=== PATIENT | male | born 1965 | race Caucasian/White ===

== ENCOUNTER 2016-12-06 11:42 | Inpatient (IN) | payer OTHER ==
[~2016-12-06] VITALS: Ht 188 cm; Wt 94.1 kg
[~2016-12-06 11:42] MED LIST: LEVOTHYROXINE75 MCG PO; LITHIUM CARBON300 M1 PO; PRILOSEC OTC20 MG PO; SEROQUEL400 MG PO; SIMVASTATIN40 MG PO; TRAZODONE HCL100 MG PO; TUMS200 MG PO; VENLAFAXINE H37.5 MG PO
[2016-12-06] MEDS ORDERED: COLCHICINE0.6 M1 PO (11:58)
[2016-12-06] MEDS ORDERED: BRINTELLIX20 MG PO (12:00)
[2016-12-06] MEDS ORDERED: ZOFRAN ODT4 MG PO (12:01)
[2016-12-06] MEDS ORDERED: SUCRALFATE1 GM PO (12:01)
[2016-12-06] MEDS ORDERED: METOPROLOL SUC100 MG PO (12:02)
[2016-12-06] MEDS ORDERED: KEPPRA500 MG PO (12:03)
[2016-12-06] MEDS ORDERED: CLONIDINE HCL0.2 MG PO (12:04)
[2016-12-06] MEDS ORDERED: OXYCODON-ACETA1 EAC2 PO (12:04)
--- NOTE | 2016-12-06 17:39 | NUR ---
PT RECEIVED FROM ED, TRANSFERED SELF TO BED, STEADY ON FEET. PT ON ROOM AIR, DENIES SOB, LUNG SOUNDS COARSE WITH RHONCHI AND EXPIRATORY WHEEZE TO LEFT SIDE. PT DENIES CHEST PAIN, HR REGULAR. PT DENIES NAUSEA AT THIS TIME, BOWEL TONES ACTIVE/HYPERACTIVE, TENDER TO PALPATE LOWER ABD. IV ZOSYN COMPLETED, D5LR AT 125 ML/HR INFUSING. SCDS TO BLE. PT REQUESTING NICOTINE PATCH, NO ORDER, MD CALLED, MESSAGE LEFT. CMS INTACT, PULSES PALPABLE, NO EDEMA NOTED. DISCUSSED PLAN OF CARE, IV ABX, AND BOWEL REST. PARENTS AT BEDSIDE, INSTRUCTED TO BRING ANTIDEPRESSANT IN AM.
--- NOTE | 2016-12-06 17:51 | NUR ---
DR FUENTES CALLED BACK AND OK'D THE ORDER OF 21 MG NICOTINE PATCH FOR PATIENT.
--- NOTE | 2016-12-06 18:03 | NUR ---
NICOTINE PATCH APPLIED TO RIGHT ARM. PT RESTING IN BED. PT DENIES OTHER NEEDS AT THIS TIME.
--- NOTE | 2016-12-06 18:19 | NUR ---
PT RECEIVED FROM ED, DX WITH DIVERTICULITIS. PT ON ROOM AIR, CURRENT SMOKER, LUNG SOUNDS COARSE WITH RHONCHI AND WHEEZE TO LEFT SIDE, NICOTINE PATCH TO RIGHT ARM. PT ON CLEAR LIQUID DIET <500 ML/8HRS, GIVEN 250 ML OF WATER. PT PAIN WELL CONTROLLED WITH DILAUDID GIVEN IN ED, HAS NOT REQUESTED PAIN MEDICATION SINCE ARRIVING. IV FLUIDS INFUSING D5LR AT 125 ML/HR TO RIGHT AC. PT UP SBA TO AMBULATE. BOWEL TONES ACTIVE UPPER HYPERACTIVE LOWER, TENDER TO PALPATE LOWER ABD. SCDS TO BLE.
--- NOTE | 2016-12-06 19:07 | NUR ---
Received report from RN. Patient is resting comfortably in bed, breathing is even and unlabored. Denies needs at this time. Call light within reach.
--- NOTE | 2016-12-06 19:28 | NUR ---
PT REQUESTING PAIN MEDICATION. RATING PAIN 6/10 TO LOWER ABD. GIVEN 1 MG IV DILAUDID. PT DENIES OTHER NEEDS AT THIS TIME.
--- NOTE | 2016-12-06 20:00 | NUR ---
PATIENT REPORTS 4/10 PAIN TO RLQ OF ABD. 1 TAB NORCO GIVEN PER EMAR. DENIES OTHER NEEDS AT THIS TIME. SHIFT ASSESSMENT DONE, CALL LIGHT WITHIN REACH.
--- NOTE | 2016-12-06 20:05 | NUR ---
PATIENT REPORTS 4/10 PAIN IN RLQ OF ABD, HE STATES "IT FEELS LIKE A GAS BUBBLE." PRN NORCO GIVEN PER EMAR. DENIES OTHER NEEDS AT THIS TIME. ASSESSMENT DONE, CALL LIGHT WITHIN REACH.
--- NOTE | 2016-12-06 21:45 | NUR ---
PATIENT REPORTS 3/10 PAIN IN RLQ OF ABD, AND SAYS HE IS COMFORTABLE. DENIES NEEDS AT THIS TIME. CALL LIGHT WITHIN REACH.
--- NOTE | 2016-12-07 00:04 | NUR ---
PATIENT IS RESTING COMFORTABLY IN BED, BREATHING IS EVEN AND UNLABORED. CALL LIGHT WITHIN REACH.
--- NOTE | 2016-12-07 01:39 | NUR ---
PATIENT REPORTS 8/10 LLQ ABD PAIN AND SUPRAPUBIC PAIN. PRN DILAUDID GIVEN PER EMAR. DENIES OTHER NEEDS AT THIS TIME. CALL LIGHT WITHIN REACH.
--- NOTE | 2016-12-07 02:40 | NUR ---
PATIENT IS RESTING COMFORTABLY IN BED, BREATHING IS EVEN AND UNLABORED. FLACC SCORE OF 0. CALL LIGHT WITHIN REACH.
--- NOTE | 2016-12-07 05:51 | NUR ---
PATIENT REPORTS MILD NAUSEA RESULTING IN EMESIS. PRN ZOFRAN GIVEN PER EMAR. REPORTS 4/10 LOWER ABD PAIN, BUT REFUSES PAIN MEDICATION AFTER OFFERING. DENIES OTHER NEEDS AT THIS TIME. CALL LIGHT WITHIN REACH.
--- NOTE | 2016-12-07 06:05 | NUR ---
PATIENT'S NIGHT WAS RELATIVELY UNEVENTFUL. HE HAS BEEN RESTING COMFORTABLY IN BED THROUGH MAJORITY OF SHIFT. VSS, PAIN HAS BEEN WELL CONTROLLED WITH PRN PAIN MEDICATION. HAD ONE EPISODE OF NAUSEA AND EMESIS, PRN ZOFRAN GIVEN PER EMAR. HAS IV FLUIDS RUNNING AT 125 ML/HR IN RIGHT ARM. HE IS A SBA. NO ACUTE CHANGES FROM BEGINNING OF SHIFT ASSESSMENT.
--- NOTE | 2016-12-07 07:22 | CONS ---
[facility] [address], [place] [address] Signed DATE OF CONSULTATION: 12/06/2016 CHIEF COMPLAINT: Left lower quadrant abdominal pain. HISTORY OF PRESENT ILLNESS: Robby is a 50-year-old gentleman with a long history of bipolar disorder, depression, and seizures. He is not able to drive, but he is single and lives alone, although he has a lot of support from his mom and dad and his family. He continues to smoke and also a little bit of marijuana to try to improve his appetite plus he likes to drink a little bit each week. He was having some trouble and went over to [facility] a week ago and everything seemed to be fine including a CT scan. This week he developed left lower quadrant abdominal pain. It was fairly intense. He decided to come to our hospital here at [facility]. He is tender in the left lower quadrant. He certainly has a white count of 12.1. The rest of his labs are fine including a lactic acid of 1. He had a repeat CT scan of the abdomen and pelvis performed to make sure enough he has a diverticular disease and just some mild inflammation or a few gas bubbles, but no abscess and no free air. I have been asked to admit him as a general surgeon on-call. In the meantime, he has received IV fluids, pain medication, and some Zosyn and Flagyl. PAST MEDICAL HISTORY: Depression, bipolar disorder, alcoholism, hypertension, kidney stones, seizures, gout, gastroesophageal reflux disease, and hypothyroidism. PAST SURGICAL HISTORY: Includes a right hand tendon repair and a kidney stone extraction. SOCIAL HISTORY: He likes to smoke a little including marijuana. He likes to drink several beers in a week. He is single. He does not drive. He has no children. He does have a house. He has a lot of support from his father and his mom. His dad is Eddie. His mother's Katerina, . He prefers the [facility] in [place]. Dr. Jann Jaramillo is his primary care provider. FAMILY HISTORY: Dad has had diverticular disease requiring my services, hypertension, obstructive sleep apnea requiring CPAP mask, and diabetes. His mom I think has some issues with her lungs and I believe she is a smoker as well. REVIEW OF SYSTEMS: Robby had 10 systems reviewed and really nothing new since I have seen him last. ALLERGIES: None. MEDICATIONS: Levothyroxine, Seroquel, Prilosec, Tums, colchicine, Brintellix, Zofran, sucralfate, metoprolol, Keppra, clonidine and Percocet. PHYSICAL EXAMINATION: Electronically Signed By: SALTY BARRERA MD 12/07/16 0722 PATIENT NAME: ROBBY RAMIREZ CONSULTATION DATE OF : 61 PHYSICIAN: SALTY BARRERA MD REPORT #: [id number] REPORT IS CONFIDENTIAL AND NOT TO BE RELEASED WITHOUT AUTHORIZATION [facility] [address], [place] [address] Signed VITAL SIGNS: His blood pressure is 124/91, heart rate of 55, respiratory rate is 16. He is 98% on room air. He is 6 feet 2 inches, 108 kg. GENERAL: Robby is a 50-year-old gentleman, who appears healthier than his stated age. He is lying in his ER bed watching TV. He does not appear systemically ill or toxic. LUNGS: Clear to auscultation bilaterally. HEART: Regular rate and rhythm. ABDOMEN: Soft and flat, but tender in the left lower quadrant, although he did just receive some Dilaudid. LABORATORY DATA: His white blood cell count is 12.1, hemoglobin 16, neutrophils 62, BUN 8, creatinine 0.75. UA negative. Lactic acid 1. Liver function tests negative. Albumin is 4.1. RADIOGRAPHIC STUDIES: CT scan of the abdomen and pelvis is reviewed as well as the report. He clearly has some diverticula in the sigmoid colon, just a little bit inflammation and a few gas bubbles. No abscess and no free air. ASSESSMENT AND PLAN: Robby is a 50-year-old gentleman, who presents with an acute episode of diverticulitis. We are going to admit him and put him on IV fluids and some antibiotics for a few days. We will allow him to have some clear liquids, so he can take his medications as well. Hopefully this will clear and we will be able to move forward in a conservative manner. He knows that if his condition worsens, he might need surgery. He has expressed understanding and agrees with the above plan. Salty Barrera MD ALB/ROSIBELL /[id number] cc: Jann Jaramillo DC Electronically Signed By: SALTY BARRERA MD 12/07/16 0722 PATIENT NAME: ROBBY RAIMREZ CONSULTATION DATE OF : 61 PHYSICIAN: SALTY BARRERA MD REPORT #: [id number] REPORT IS CONFIDENTIAL AND NOT TO BE RELEASED WITHOUT AUTHORIZATION
--- NOTE | 2016-12-07 08:30 | NUR ---
PATIENT IS SLEEPING.
--- NOTE | 2016-12-07 08:43 | NUR ---
pt resting between cares. took scheduled meds as ordered. awaiting home med to be brought in by family member. no complaints at this time. flagyl infusing now. cefepime to be hung after flagyl infuses.
[2016-12-07] MEDS ORDERED: QUETIAPINE FUM300 MG PO (10:28)
--- NOTE | 2016-12-07 11:16 | NUR ---
PT AMBULATING MED SURG UNIT NOW. CEFEPIME INFUSING. PT REPORTS STABBING PAIN IN LOWER ABDOMEN. WILL GIVE 2MG DILAUDID AT 1145.
--- NOTE | 2016-12-07 13:45 | NUR ---
YPT REPORTS PAIN SUBSIDED AFTER LAST DOSE OF DILAUDID AND AMBULATING HALLS. REPORTS POSITIVE FLATUS. PT PLANS TO SHOWER THIS AFTERNOON.
--- NOTE | 2016-12-07 13:53 | NUR ---
PT IN BED, ALERT ADN ORIENTED. HIS MOTHER BY HIS SIDE. HE MENTIONED THAT HE WAS FEELING BETTER, AND THAT HIS DAD HAD SIMILIAR ATTACK. SHE BEGAN TO GIVE DETAILS OF HOW DIFFICULT IT WAS ON HIS FATHER. THE LONGER SHE DESCRIBED HIS SITUATION, PT GOT QUIET AND PENSIVE. HE THANKED ME FOR COMING BY, I EXTENDED A BLESSING. WILL CONTINUE TO FOLLOW
--- NOTE | 2016-12-07 15:51 | NUR ---
PATIENT SAID WOULD LIKE TO TAKE A SHOWER IF HE DIDN'T HAVE TO TAKE IV POLE IN WITH HIM.
--- NOTE | 2016-12-07 16:24 | NUR ---
WENT TO CHECK ON PT. AND HE WAS SOUND ASLEEP
--- NOTE | 2016-12-07 18:11 | NUR ---
FLAGYL/CEFEPIME. IVF @ 125. DARK URINE. NEW IV IN RW. NA PHOS AND MAG RIDER GIVEN TODAY. DILAUDID X2. NORCO CHANGED TO PERCOCET. BENADRYL GIVEN FOR ITCHING AFTER NORCO. WALKED 1 LAP TODAY. POSITIVE FLATUS REPORTED. NO BM.
--- NOTE | 2016-12-07 19:00 | NUR ---
RECVD REPORT FROM JOSÉ ANTONIO RN, PT AWAKE IN BED WATCHING TV. CLEAR LIQUID DIET 500 MLS/8 HRS NOTED. PT STATES PAIN IS "OKAY RIGHT NOW." NO FURTHER NEEDS AT THIS TIME. CALL LIGHT IN PLACE.
--- NOTE | 2016-12-07 19:40 | NUR ---
PT CALLED REQUESTING MEDICATION FOR NAUSEA. IN TO SEE PT, PT VOMITING. PHENERGAN 12.5 MG GIVEN. EMESIS OF 5 MLS NOTED. PT STATES "I THINK PUKING HELPED." NO FURTHER NEEDS AT THIS TIME. WILL CONTINUE TO MONITOR PT.
--- NOTE | 2016-12-07 21:15 | NUR ---
IN TO SEE PT, PT AWAKE WATCHING TV. ASSESSMENT COMPLETE AND PM MEDICATIONS GIVEN. PT C/O ITCHING. BENADRYL GIVEN. PT C/O OF 610 ABD PAIN, IV DILAUDID GIVEN. IVF AND ABX INFUSING. PT STATES HE IS PASSING GAS. IV IN R WRIST DC'D PER PT REQUEST DUE TO PAIN. NO FURTHER NEEDS AT THIS TIME. CALL LIGHT IN REACH.
--- NOTE | 2016-12-07 23:04 | NUR ---
IN TO CHECK ON PT, PT AWAKE WATCHING TV. PT C/O 07/18 ABD PAIN, PERCOCET GIVEN. PT STATE "I AM STILL A LITTLE ITCHY." BENADRYL 25 MG GIVEN. PT ALERT AND WATCHING TV. NO FURTHER NEEDS AT THIS TIME, CALL LIGHT IN REACH.
--- NOTE | 2016-12-08 00:40 | NUR ---
IN TO CHECK ON PT, PT APPEARS TO BE SLEEPING. RR EVEN AND UNLABORED. NO APPARENT DISTRESS NOTED. CALL LIGHT IN REACH.
--- NOTE | 2016-12-08 02:17 | NUR ---
IN TO CHECK ON PT, PT SLEEPING SNORING SOFTLY. AWAKENS EASILY TO VOICE. PT STATES PAIN IS "GOOD." ABX INFUSING. NO FURTHER NEEDS AT THIS TIME. CALL LIGHT IN REACH.
--- NOTE | 2016-12-08 04:19 | NUR ---
IN TO CHECK ON PT, PT APPEARS TO BE SLEEPING. LAYING ON BACK, SNORING SOFTLY. RR EVEN AND UNLABORED. NO APPARENT DISTRESS NOTED. IVF INFUSING.
--- NOTE | 2016-12-08 04:57 | NUR ---
PT RESTED WELL DURING SHIFT. C/O PAIN 6-8/10 ABD PAIN, PERCOCET AND DILAUDID GIEVN. EMESIS OF < 5 MLS NOTED AT BEGINING OF SHIFT. IV IN R AC D5LR @ 125 MLS. CLEAR LIQUID DIET 500 MLS IN 8 HRS. BOWEL SOUNDS HYPOACTIVE, PT REPORTS PASSING FLATUS.
--- NOTE | 2016-12-08 09:59 | NUR ---
NO IV ACCESS. ABX LATE D/T NO IV ACCESS.
--- NOTE | 2016-12-08 14:11 | NUR ---
PT MADE IT VERY PLAIN THAT HE DIDNOT WANT OR NEED ANY VISITS FROM ME. HE SHOOK MY HAND AND I EXTENDED A BLESSING TO HIM. WILL FOLLOW NEEDED
--- NOTE | 2016-12-08 14:54 | NUR ---
STUDENT NURSE TO WALK PATIENT THIS AFTERNOON. RESTING MOST OF DAY. NEW IV WORKING WELL. PERCOCET GIVEN AT 1400. PAIN REPORTED AT 3/10.
--- NOTE | 2016-12-08 14:56 | NUR ---
PT IS [id number] IN BED WITH CALL LIGHT IN REACH. PT ASKED FOR MORE WATER AND JUICE. WAS GIVEN 250MLS OF EACH.
--- NOTE | 2016-12-08 18:34 | NUR ---
PT AMBULATED HALLS X2. PERCOCET 2 TABS Q4H. REPORTS PAIN 3/10 IN LOWER ABDOMEN. RECEIVED BENADRYL X2 FOR ITCHING. NO BM TODAY. SBA. FLAGYL/CEFEPIME. D5LR @ 125. TOLERATING CLEAR LIQUID DIET-- 500CC/8H.
--- NOTE | 2016-12-08 20:01 | NUR ---
COOP WITH ASSESSMENT
--- NOTE | 2016-12-08 22:36 | NUR ---
medicated with 2 percocet, c/o abd pain
--- NOTE | 2016-12-09 02:47 | NUR ---
sleeping, no distress, iv site intact, ivf infusing
--- NOTE | 2016-12-09 04:33 | NUR ---
pt has been medicated 1x with po pain meds. Effective, IVF infusing w/o problems. no c/o adverse reaction to IV abx. Abd still with slight distantion, No BM this shift.using urinal with QS output. Pt continues on clears liquids with 500cc q8H.
--- NOTE | 2016-12-09 06:16 | NUR ---
Pt medicated with zofran 8mg iv per c/o dry heaving
--- NOTE | 2016-12-09 06:54 | NUR ---
medicated with 2 percocet c/o abd pain
--- NOTE | 2016-12-09 07:35 | NUR ---
Patient is resting in bed at this time with eyes closed. White board updated.
--- NOTE | 2016-12-09 08:46 | NUR ---
patient woke for assessment. patient reports pain 04/17. improved. patient reports no nausea at this time. vitals taken. assessment done. empties 900mls of clear yellow urine out. antibiotics started. medication given.
--- NOTE | 2016-12-09 10:38 | NUR ---
patient tolerated ambulating in [place] several laps. requesting to go home. monitoring.
--- NOTE | 2016-12-09 11:19 | NUR ---
educated on low fiber diet. ordered lunch. patient education on pain regiment. requesting 2 oxy at this time.
--- NOTE | 2016-12-09 12:10 | NUR ---
CONNECTED WITH PT HE WAS AMBULATING IN HALLS. HE WAS FRIENDLY, SAID HE FELT SO MUCH BETTER, AND THANKED ME FOR ASKING. WILL CONTINUE TO FOLLOW NEEDED
--- NOTE | 2016-12-09 13:32 | NUR ---
PATIENT TOLERATED REGULAR DIET. NO NAUSEA AT THIS TIME. NO INCREASE OF PAIN. PLAN TO SHOWER ONCE ANTIBIOTIC IS FINISHED. PATIENT OKAY WITH PLAN.
--- NOTE | 2016-12-09 16:26 | NUR ---
patient showered. educated about low fiber diet given to patient. patient stating he understands. planning to order dinner based off of new diet order
--- NOTE | 2016-12-09 16:58 | NUR ---
pt given antibiotic. two percocet. patient stating two has " help with his wellbeing and staying up on pain." currently 04/17. ordered dinner. passing flatus. no bm at this time.
--- NOTE | 2016-12-09 17:08 | NUR ---
patient had a good day. antibiotics switched to po. patient diet advanced to low fiber diet. patient ambulated in [place] multiple times.tolerating well. patient requesting 2 tabs oxy with pain. patient plan to discharge tomorrow if cont to do well. patient has been given diet education.
--- NOTE | 2016-12-09 18:55 | NUR ---
REPORT RECVD FROM GREGORIO HUERTA,PT IN ROOM WATCHING TV. PT IS INDEPENDENT IN ROOM. NO FURTHER NEEDS AT THIS TIME. CALL LIGHT IN REACH.
--- NOTE | 2016-12-09 20:34 | NUR ---
Patient in bed watching tv. Whiteboard updated. Patient states they do not need anything at this time, reminded to call.
--- NOTE | 2016-12-09 20:45 | NUR ---
IN TO SEE PT, PT AWAKE WATCHING TV. ASSESSMENT COMPLETE AND PM MEDICATIONS GIVEN. PT TOLERATING LOW FIBER DIET WELL. PT SL. INDEPENDENT IN ROOM. NO FURTHER NEEDS AT THIS TIME. CALL LIGHT IN REACH.
--- NOTE | 2016-12-09 23:34 | NUR ---
IN TO CHECK ON PT, PT AWAKE WATCHING TV. NO NEEDS AT THIS TIME. CALL LIGHT IN REACH.
--- NOTE | 2016-12-10 00:16 | NUR ---
PATIENT IN BED SLEEPING
--- NOTE | 2016-12-10 01:39 | NUR ---
IN TO CHECK ON PT, PT AWAKE WATCHING TV. PT RATES PAIN 4/10, REQUESTING PERCOCET. MEDICATION GIVEN. PT CURRENTLY SL. NO FURTHER NEEDS AT THIS TIME. CALL LIGHT IN REACH.
--- NOTE | 2016-12-10 03:33 | NUR ---
IN TO CHECK ON PT, PT APPEARS TO BE SLEEPING. TV ON. RR EVEN AND UNLABORED. NO APPARENT DISTRESS NOTED. CALL LIGHT IN REACH.
--- NOTE | 2016-12-10 03:33 | NUR ---
PATIENT IS INDEPENDENT IN ROOM. WAS UP AMBULATING THE HALLWAY.
--- NOTE | 2016-12-10 04:27 | NUR ---
PT HAS HAD AN UNEVENTFUL SHIFT, RESTED WELL. RATES PAIN 2-3/10, PRN PERCOCET GIVEN. DENIES NAUSEA AND VOMITING. ON LOW FIBER DIET. PT AMBULATED IN HALLWAY, IS INDEPENDENT IN ROOM. PT SL. GOOD UO. DISCHARGE TO HOME TODAY.
--- NOTE | 2016-12-10 07:56 | NUR ---
in room for morning assessment. pt requesting 2 pain pills. gave 2 tabs percocet 10/325 po for abdominal pain 04/17.
[2016-12-10] MEDS ORDERED: METRONIDAZOLE250 MG PO (08:26)
[2016-12-10] MEDS ORDERED: NICOTINE PATCH1 EAC1 TD (08:26)
[2016-12-10] MEDS ORDERED: CIPROFLOXACIN500 MG PO (08:26)
[2016-12-10] MEDS ORDERED: IBUPROFEN600 MG PO (08:27)
--- NOTE | 2016-12-10 08:35 | NUR ---
PT AWAKE IN BED. SET UP FOR BREAKFAST. AM CARE. FRESH ICE WATER.
--- NOTE | 2016-12-10 09:34 | NUR ---
PT DISCHARGE INSTRUCTIONS GIVEN ON EDUCATION, FOLLOW-UP, WHEN TO CONTACT MD, MEDICATION, ACTIVITY, AND DIET. VERBALIZED UNDERSTANDING.
--- NOTE | 2016-12-10 09:58 | NUR ---
PT STATED HE DID NOT NEED ANYTHING AT THIS TIME.
--- NOTE | 2016-12-10 10:30 | NUR ---
pt left for home with dishcarge instructions.
--- NOTE | 2016-12-10 12:22 | NUR ---
PT DRESSED AND READY FOR DC. HE CAME OVER AND SHOOK MY HAND, AND SMILED. THAT WAS ALL I NEEDED. GOD BLESS HIM
--- NOTE | 2017-01-03 09:22 | DS ---
[facility] [address], [place] [address] Signed ADMISSION DATE: 12/06/2016 DISCHARGE DATE: 12/10/2016 FINAL DIAGNOSIS: Sigmoid diverticulitis. PROCEDURE: CT scan of abdomen and pelvis. HISTORY OF PRESENT ILLNESS: Robby is a 50-year-old gentleman, I have known for some time. He has a history of bipolar disorder, depression, and seizures. He does not drive, but he does live alone and he is single. However, he gets a lot of support from his mom and father, who live nearby. He likes to smoke marijuana a little bit to help his appetite and he also likes to drink alcohol. Although he has cut that down significantly. He was having trouble with left lower quadrant abdominal pain and ended up [facility]'s emergency room. His laboratory work and a CT scan were fine. He was discharged to home. This week, he had increasing left lower quadrant abdominal pain, so he came over to our hospital here in [place]. He is tender in the left lower quadrant with a white count at 12.1. Abdominal CT scan showed inflammatory changes, consistent with diverticular disease and just a few small gas bubbles. There was no abscess or free air. I have been asked to see him as a general surgeon on-call. HOSPITAL COURSE: Robby was admitted as above with his diverticulitis. He was placed on IV antibiotics. He improved each day. In my absence, Dr. Boles had taken over his care. He continued to do well and was discharged to home by Dr. Boles. DISCHARGE PLANS AND MEDICATIONS: Robby was discharged home with his chronic medications. He can follow a regular diet. He is welcome to perform his activities including showering, bathing, walking up and down the stairs. He was asked to finish a course of Cipro and Flagyl. He is also asked to follow up in my office in a week or so after discharge. He and his mom had expressed understanding and agreed to above plan. Salty Fuentes MD Electronically Signed By: SALTY FUENTES MD 01/03/17 09 PATIENT NAME: ROBBY RAMIREZ DISCHARGE SUMMARY DATE OF : 61 PHYSICIAN: SALTY FUENTES MD REPORT #: [id number] REPORT IS CONFIDENTIAL AND NOT TO BE RELEASED WITHOUT AUTHORIZATION [facility] [address] [facility] [place], [place] [address] Signed ALB/MODL /[id number] cc: Jann Jaramillo DC Electronically Signed By: SALTY FUENTES MD 01/03/17921 PATIENT NAME: ROBBY RAMIREZ DISCHARGE SUMMARY DATE OF : 61 PHYSICIAN: SALTY FUENTES MD REPORT #: [id number] REPORT IS CONFIDENTIAL AND NOT TO BE RELEASED WITHOUT AUTHORIZATION
== END 2016-12-10 10:30 | disposition home or self-care (01) | DRG 392 ==
LOC: ED 11:42 → MS 16:02
PROVIDERS: ADMIT Colon & Rectal Surgery
DX: K57.20 Diverticulitis of large intestine with perforation and abscess without bleeding (principal); F17.210 Nicotine dependence, cigarettes, uncomplicated; F32.9 Major depressive disorder, single episode, unspecified; F31.70 Bipolar disorder, currently in remission, most recent episode unspecified; I10 Essential (primary) hypertension; E03.9 Hypothyroidism, unspecified; K21.9 Gastro-esophageal reflux disease without esophagitis; M10.9 Gout, unspecified
CPT/HCPCS: 36415; 74177; 80048; 80053; 81001; 83605; 83690; 83735; 84100; 85025; 96361; 96365; 96366; 96368; 96375; 99285; 99406; J0692; J1170; J1644; J1885; J2405; J2543; J2550; J3475; J7030; J7120; Q9967

== ENCOUNTER 2019-06-13 10:14 | Inpatient (IN) | payer OTHER ==
[~2019-06-13] VITALS: Ht 188 cm; Wt 93.4 kg
--- OUTSIDE RECORDS SUMMARY | ~2019-06-13 | XMS | Encounter Summary ---
Demographics + + + | Address | [address] | | | [place] [address] | + + + | Home Phone | | + + + | Preferred Language | Unknown | + + + | Marital Status | Single | + + + | Synagogue Affiliation | 1073 | + + + | Race | Unknown | + + + | Ethnic Group | Unknown | + + + Author + + + | Author | [facility] | | | and [place] | + + + | Organization | [facility] | | | and [place] | + + + | Address | Unknown | + + + | Phone | Unavailable | + + + Support + + + + + | Name | Relationship | Address | Phone | + + + + + | Robby Zamora | [place] | [address] | | | | | [place] [address] | | + + + + + Care Team Providers + +------+ + | Care Chocolate Finisher Operator Name | Role | Phone | + +------+ + | Jann Jaramillo MD | PCP | | + +------+ + Reason for Visit + + + | Reason | Comments | + + + | New Patient | | + + + | Abdominal Pain | | + + + | Vomiting | | + + + | Nausea | | + + + | Weight Loss | | + + + | Diarrhea | | + + + Evaluate & Treat (Routine) +--------+--------+ + + + + | Status | Reason | Specialty | Diagnoses / | Referred By | Referred To | | | | | Procedures | Contact | Contact | +--------+--------+ + + + + | Closed | | Gastroenterol | Diagnoses | Devaughn, | Thor, | | | | ogy | Diarrhea, | Shivani | Tan Leal MD | | | | | unspecified | Cande, | [address], | | | | | Abnormal | [address] | [address] | | | | | weight loss | [place] | [place], | | | | | Nausea with | [address] | [place] [address] | | | | | vomiting, | [address] | Phone: | | | | | unspecified | [place], | [phone] | | | | | Epigastric | [place] [address] | Fax: | | | | | abdominal | Phone: | [phone] | | | | | tenderness | [phone] | | | | | | Procedures | Fax: | | | | | | Office Visit | [phone] | | +--------+--------+ + + + + Encounter Details +--------+---------+ + + + | Date | Type | Department | Care Team | Description | +--------+---------+ + + + | 02/15/ | Office | [facility] | Tan Mcrae MD | Diarrhea, | | 2018 | Visit | GASTROENTEROLOGY | [address], [address] | unspecified type | | | | [address] | [address] [place], [place] | (Primary Dx); Weight | | | | [address] [place], [place] | [address] | loss, | | | | [address] | | unintentional; | | | | [phone] | | Seizure disorder | | | | | | ([facility]); History of | | | | | | alcohol abuse | +--------+---------+ + + + Social History + + + +--------+------+ | Tobacco Use | Types | Packs/Day | Years | Date | | | | | Used | | + + + +--------+------+ | Current Every Day | Cigarettes | 1.5 | 25 | | | Smoker | | | | | + + + +--------+------+ + +---+---+---+ | Smokeless Tobacco: | | | | | Former User | | | | + +---+---+---+ + + +---------+ + | Alcohol Use | Drinks/Week | oz/Week | Comments | + + +---------+ + | Yes | | | liquor or beer once | | | | | a week | + + +---------+ + + + + | Sex Assigned at | Date Recorded | | | | + + + | Not on file | | + + + + + + + | Job Start Date | Occupation | Industry | + + + + | Not on file | Not on file | Not on file | + + + + + + + + | Travel History | Travel Start | Travel End | + + + + + + | No recent travel history available. | + + documented as of this encounter Last Filed Vital Signs + + + + + | Vital Sign | Reading | Time Taken | Comments | + + + + + | Blood Pressure | 104/78 | 02/15/2017 3:12 PM | | | | | PST | | + + + + + | Pulse | 62 | 02/15/2017 3:12 PM | | | | | PST | | + + + + + | Temperature | - | - | | + + + + + | Respiratory Rate | 16 | 02/15/2017 3:12 PM | | | | | PST | | + + + + + | Oxygen Saturation | - | - | | + + + + + | Inhaled Oxygen | - | - | | | Concentration | | | | + + + + + | Weight | 98 kg (216 lb 0.8 | 02/15/2017 3:12 PM | | | | oz) | PST | | + + + + + | Height | 188 cm (6' 2") | 02/15/2017 3:12 PM | | | | | PST | | + + + + + | Body Mass Index | 27.74 | 02/15/2017 3:12 PM | | | | | PST | | + + + + + documented in this encounter Plan of Treatment Not on filedocumented as of this encounter Visit Diagnoses + + | Diagnosis | + + | Diarrhea, unspecified type - Primary | + + | Weight loss, unintentional Loss of weight | + + | Seizure disorder (HCC) Unspecified epilepsy without mention of intractable epilepsy | + + | History of alcohol abuse Nondependent alcohol abuse, in remission | + + documented in this encounter
--- OUTSIDE RECORDS SUMMARY | ~2019-06-13 | XMS | Encounter Summary ---
Demographics + + + | Address | [address] | | | [place] [address] | + + + | Home Phone | | + + + | Preferred Language | Unknown | + + + | Marital Status | Single | + + + | Nondenominational Affiliation | 1073 | + + + | Race | Unknown | + + + | Ethnic Group | Unknown | + + + Author + + + | Author | [facility] | | | and [place] | + + + | Organization | [facility] | | | and [place] | + + + | Address | Unknown | + + + | Phone | Unavailable | + + + Support + + + + + | Name | Relationship | Address | Phone | + + + + + | Robby Zamora | [address] | [address] | | | | | [place] [address] | | + + + + + Care Team Providers + +------+ + | Care Temperer Name | Role | Phone | + +------+ + | Jann Jaramillo MD | PCP | | + +------+ + Encounter Details +--------+ + + + + | Date | Type | Department | Care Team | Description | +--------+ + + + + | 02/17/ | Episode | [facility] [place] | Gely Edwards | | | 2018 | Changes | GASTROENTEROLOGY | [address] | | | | | [address] [facility] | | | | | | [address] [place] | | | | | | [address] | | | | | | [phone] | | | +--------+ + + + + Social History + + [...] + + documented as of this encounter Plan of Treatment Not on filedocumented as of this encounter Visit Diagnoses Not on filedocumented in this encounter"
--- OUTSIDE RECORDS SUMMARY | ~2019-06-13 | XMS | Encounter Summary ---
Demographics + + + | Address | [address] | | | [place] [address] | + + + | Home Phone | | + + + | Preferred Language | Unknown | + + + | Marital Status | Single | + + + | Adventist Affiliation | 1073 | + + + | Race | Unknown | + + + | Ethnic Group | Unknown | + + + Author + + + | Author | [facility] | | | and [place] | + + + | Organization | [facility] | | | and [place] | + + + | Address | Unknown | + + + | Phone | Unavailable | + + + Support + + + + + | Name | Relationship | Address | Phone | + + + + + | Robby Zamora | [place] | [address] | | | | | [place] [address] | | + + + + + Care Team Providers + +------+ + | Care Voltage Tester Name | Role | Phone | + +------+ + | Unknown, Doctor | PCP | | + +------+ + Encounter Details +--------+ + + + + | Date | Type | Department | Care Team | Description | +--------+ + + + + | 02/02/ | Abstract | [facility] [place] | Tan Mcrae MD | | | 2016 | | GASTROENTEROLOGY | [address], [address] | | | | | [address] | [address] | | | | | [address] [place], [place] | [address] | | | | | [address] | | | | | | [phone] | | | +--------+ + + + + Social History + + + +--------+------+ | Tobacco Use | Types | Packs/Day | Years | Date | | | | | Used | | + + + +--------+------+ | Current Every Day | Cigarettes | 1.5 | 25 | | | Smoker | | | | | + + + +--------+------+ + + | Tobacco Cessation: Ready to Quit: Yes | + + + + +---------+ + | Alcohol Use | Drinks/Week | oz/Week | Comments | + + +---------+ + | No | | | | + + +---------+ + + + [...] + + + | Blood Pressure | - | - | | + + + + + | Pulse | - | - | | + + + + + | Temperature | - | - | | + + + + + | Respiratory Rate | - | - | | + + + + + | Oxygen Saturation | - | - | | + + + + + | Inhaled Oxygen | - | - | | | Concentration | | | | + + + + + | Weight | 97.1 kg (214 lb) | 02/02/2017 11:34 AM | | | | | PST | | + + + + + | Height | 188 cm (6' 2") | 02/02/2017 11:34 AM | | | | | PST | | + + + + + | Body Mass Index | 27.48 | 02/02/2017 11:34 AM | | | | | PST | | + + + + + documented in this encounter Plan of Treatment Not on filedocumented as of this encounter Procedures + +--------+ + + + | Procedure Name | Priori | Date/Time | Associated Diagnosis | Comments | | | ty | | | | + +--------+ + + + | EXTERNAL LAB: CBC | Routin | 01/07/2017 | | Results for this | | | e | | | procedure are in the | | | | | | results section. | + +--------+ + + + | OCCULT BLOOD, STOOL, | Routin | 01/07/2017 | | Results for this | | FOR COLORECTAL | e | | | procedure are in the | | NEOPLASM SCREENING | | | | results section. | + +--------+ + + + | CBC WITH | Routin | 01/07/2017 | | Results for this | | DIFFERENTIAL | e | | | procedure are in the | | | | | | results section. | + +--------+ + + + documented in this encounter Results Occ Bld Stl For Colorectal Neoplasm Scr (01/07/2017) + + + + + + | Component | Value | Ref Range | Performed | Pathologist | | | | | At | Signature | + + + + + + | Result | Negative for occult | | | | | | blood | | | | + + + + + + + + | Specimen | + + | Stool - Stool | | specimen (specimen) | + + CBC with Differential (01/07/2017) + +-------+ + + + | Component | Value | Ref Range | Performed | Pathologist | | | | | At | Signature | + +-------+ + + + | MCH | 31.9 | 26.0 - 33.0 pg | | | + +-------+ + + + | MCHC | 34.0 | 31.0 - 37.0 % | | | + +-------+ + + + | % Basophils | 0.2 | 0.0 - 1.0 % | | | + +-------+ + + + + + | Specimen | + + | Blood | + + External Lab: CBC (01/07/2017) + + + + + + | Component | Value | Ref Range | Performed | Pathologist | | | | | At | Signature | + + + + + + | WBC, | 12.7 (A) | 4.5 - 11 | EXTERNAL | | | External | | | LAB | | + + + + + + | HGB, | 17.3 | 13.5 - 17.5 | EXTERNAL | | | External | | | LAB | | + + + + + + | HCT, | 50.9 (A) | 40 - 50 | EXTERNAL | | | External | | | LAB | | + + + + + + | PLT, | 174 | 150 - 450 | EXTERNAL | | | External | | | LAB | | + + + + + + | Neutrophils | 73.9 (A) | 40 - 70 | EXTERNAL | | | %, | | | LAB | | | External | | | | | + + + + + + | Lymphocytes | 19.1 (A) | 25 - 45 | EXTERNAL | | | %, | | | LAB | | | External | | | | | + + + + + + | Monocytes | 5.8 | 0 - 10 | EXTERNAL | | | %, External | | | LAB | | + + + + + + | Eosinophils | 1 | 0 - 3 | EXTERNAL | | | %, | | | LAB | | | External | | | | | + + + + + + | Neutrophils | 9.4 (A) | 1.6 - 7.7 | EXTERNAL | | | , Absolute, | | | LAB | | | External | | | | | + + + + + + | Lymphocytes | 2.4 | 1 - 4.8 | EXTERNAL | | | , Absolute, | | | LAB | | | External | | | | | + + + + + + | Monocytes, | 0.7 | 0 - 0.8 | EXTERNAL | | | Absolute, | | | LAB | | | External | | | | | + + + + + + | Eosinophils | 0.1 | 0 - 0.45 | EXTERNAL | | | , Absolute | | | LAB | | + + + + + + | Basophils, | 0 | 0 - 0.2 | EXTERNAL | | | Absolute | | | LAB | | + + + + + + | RBC, | 5.4 | 4.2 - 6.2 | EXTERNAL | | | External | | | LAB | | + + + + + + | MCV, | 97 | 80 - 100 | EXTERNAL | | | External | | | LAB | | + + + + + + | RDW, | 13.4 | 11.5 - 15.5 | EXTERNAL | | | External | | | LAB | | + + + + + + + +---------+ + + | Performing | Address | City/State/Zipcode | Phone Number | | Organization | | | | + +---------+ + + | EXTERNAL LAB | | | | + +---------+ + + documented in this encounter Visit Diagnoses Not on filedocumented in this encounter
--- OUTSIDE RECORDS SUMMARY | ~2019-06-13 | XMS | Encounter Summary ---
Demographics + + + | Address | [address] | | | [place] [address] | + + + | Home Phone | | + + + | Preferred Language | Unknown | + + + | Marital Status | Single | + + + | Jain Affiliation | 1073 | + + + | Race | Unknown | + + + | Ethnic Group | Unknown | + + + Author + + + | Author | [facility] | | | and [place] | + + + | Organization | [facility] | | | and [...] | | | | | [place] [address] | | + + + + + Care Team Providers + +------+ + | Care Metropolitan Editor Name | Role | Phone | + +------+ + PCP | Unavailable | + +------+ + Encounter Details +--------+ + + + + | Date | Type | Department | Care Team | Description | +--------+ + + + + | 02/26/ | Hospital | [facility] | Shear Jose R Fournier | | | 2006 | Encounter | MEDICINE [address] | [place] | | | | | [place], [place] | | | | | | [address] | | | | | | [phone] | | | +--------+ + + + [...]
--- OUTSIDE RECORDS SUMMARY | ~2019-06-13 | XMS | Encounter Summary ---
Demographics + + + | Address | [address] | | | [place] [address] | + + + | Home Phone | | + + + | Preferred Language | Unknown | + + + | Marital Status | Single | + + + | Judaism Affiliation | 1073 | + + + | Race | Unknown | + + + | Ethnic Group | Unknown | + + + Author + + + | Author | [facility] | | | and [place] | + + + | Organization | [facility] | | | and [...] | | | | | [place] [address] | | + + + + + Care Team Providers + +------+ + | Care Margin Clerk Name | Role | Phone | + +------+ + PCP | Unavailable | + +------+ + Encounter Details +--------+ + + + + | Date | Type | Department | Care Team | Description | +--------+ + + + + | 03/25/ | Hospital | [facility] | Shear Jose R Fournier | | | 2006 | Encounter | MEDICINE [address] | [place] | | | | | [place], [place] | | | | | | [address] | | | | | | [phone] | | | +--------+ + + + [...]
--- OUTSIDE RECORDS SUMMARY | ~2019-06-13 | XMS | Encounter Summary ---
Demographics + + + | Address | [address] | | | [place] [address] | + + + | Home Phone | | + + + | Preferred Language | Unknown | + + + | Marital Status | Single | + + + | Sikh Affiliation | 1073 | + + + | Race | Unknown | + + + | Ethnic Group | Unknown | + + + Author + + + | Author | [facility] | | | and [place] | + + + | Organization | [facility] | | | and [place] | + + + | Address | Unknown | + + + | Phone | Unavailable | + + + Support + + + + + | Name | Relationship | Address | Phone | + + + + + | Robby Zamora | [address] | [address] | | | | | [place] [address] | | + + + + + Care Team Providers + +------+ + | Care Band Shover Name | Role | Phone | + +------+ + | Jann Jaramillo MD | PCP | | + +------+ + Reason for Visit +--------+ + | Reason | Comments | +--------+ + | Other | Questions about test results and possible scheduling | +--------+ + Encounter Details +--------+ + + + + | Date | Type | Department | Care Team | Description | +--------+ + + + + | 03/16/ | Telephone | [facility] [place] | Tan Mcrae MD | Other (Questions | | 2018 | | GASTROENTEROLOGY | [address], [place] | about test results | | | | [address] | [address] [place], [place] | and possible | | | | [address] [place], [place] | [address] | scheduling) | | | | [address] | | | | | | [phone] | | | +--------+ + + + [...]
--- OUTSIDE RECORDS SUMMARY | ~2019-06-13 | XMS | Encounter Summary ---
Demographics + + + | Address | [address] | | | [place] [address] | + + + | Home Phone | | + + + | Preferred Language | Unknown | + + + | Marital Status | Single | + + + | Roman Catholic Affiliation | 1073 | + + + | Race | Unknown | + + + | Ethnic Group | Unknown | + + + Author + + + | Author | [facility] | | | and [place] | + + + | Organization | [facility] | | | and [...] | | | | | [place] [address] | | + + + + + Care Team Providers + +------+ + | Care Cloth Mercerizer Operator Name | Role | Phone | + +------+ + PCP | Unavailable | + +------+ + Encounter Details +--------+ + + + + | Date | Type | Department | Care Team | Description | +--------+ + + + + | 08/28/ | Hospital | [facility] | Tino Neff, | | | 2007 | Encounter | MEDICINE [address] | [address] | | | | | [place], [place] | [facility] [address] | | | | | [address] | [place] [address] | | | | | [phone] | [phone] | | | | | | | | +--------+ + + + [...]
--- OUTSIDE RECORDS SUMMARY | ~2019-06-13 | XMS | Encounter Summary ---
Demographics + + + | Address | [address] | | | [place] [address] | + + + | Home Phone | | + + + | Preferred Language | Unknown | + + + | Marital Status | Single | + + + | Samaritan Affiliation | 1073 | + + + | Race | Unknown | + + + | Ethnic Group | Unknown | + + + Author + + + | Author | [facility] | | | and [place] | + + + | Organization | [facility] | | | and [place] | + + + | Address | Unknown | + + + | Phone | Unavailable | + + + Support + + + + + | Name | Relationship | Address | Phone | + + + + + | Robby Zamora | SUZANNA | [address] | | | | | [place] [address] | | + + + + + Care Team Providers + +------+ + | Care Can Technician Name | Role | Phone | + +------+ + | Jann Jaramillo MD | PCP | | + +------+ + Reason for Visit Auth/Cert +--------+--------+ + + + + | Status | Reason | Specialty | Diagnoses / | Referred By | Referred To | | | | | Procedures | Contact | Contact | +--------+--------+ + + + + | | | | Diagnoses | | | | | | | Diarrhea, | | | | | | | unspecified | | | | | | | type | | | | | | | (R19.7), | | | | | | | Weight loss, | | | | | | | | | | | | | | unintentiona | | | | | | | l (R63.4), | | | | | | | Seizure | | | | | | | disorder | | | | | | | (HCC) | | | | | | | (G40.909), | | | | | | | alcohol | | | | | | | abuse F10.10 | | | | | | | Procedures | | | | | | | RI | | | | | | | ESOPHAGOGAST | | | | | | | RODUODENOSCO | | | | | | | PY TRANSORAL | | | | | | | DIAGNOSTIC | | | | | | | RI EGD | | | | | | | TRANSORAL | | | | | | | BIOPSY | | | | | | | SINGLE/MULTI | | | | | | | PLE RI | | | | | | | COLONOSCOPY | | | | | | | FLX DX | | | | | | | W/COLLJ SPEC | | | | | | | WHEN PFRMD | | | | | | | RI | | | | | | | COLONOSCOPY | | | | | | | W/BIOPSY | | | | | | | SINGLE/MULTI | | | | | | | PLE RI | | | | | | | COLSC FLX | | | | | | | W/RMVL OF | | | | | | | TUMOR POLYP | | | | | | | LESION SNARE | | | | | | | TQ RI | | | | | | | ANESTHESIA | | | | | | | COMBINED | | | | | | | UPPER&LOWER | | | | | | | GI | | | | | | | ENDOSCOPIC | | | | | | | PX EGD | | | | | | | COLONOSCOPY | | | +--------+--------+ + + + + Encounter Details +--------+ + + + + | Date | Type | Department | Care Team | Description | +--------+ + + + + | 02/23/ | Hospital | [facility] | Tan Mcrae MD | Functional diarrhea | | 2018 | Encounter | [facility] | [address], [place] | (Primary Dx); | | | | [address] | [address] [place], [place] | Epigastric pain | | | | [place], [place] | [address] | | | | | [address] | | | | | | [phone] | | | +--------+ + + + [...] + + + | Blood Pressure | 148/103 | 02/23/2017 12:45 PM | | | | | PST | | + + + + + | Pulse | 56 | 02/23/2017 12:45 PM | | | | | PST | | + + + + + | Temperature | 37.1 C (98.8 F) | 02/23/2017 12:33 PM | | | | | PST | | + + + + + | Respiratory Rate | 16 | 02/23/2017 12:33 PM | | | | | PST | | + + + + + | Oxygen Saturation | 95% | 02/23/2017 12:45 PM | | | | | PST | | + + + + + | Inhaled Oxygen | - | - | | | Concentration | | | | + + + + + | Weight | 98.3 kg (216 lb 11.4 | 02/23/2017 11:03 AM | | | | oz) | PST | | + + + + + | Height | 188 cm (6' 2") | 02/23/2017 11:03 AM | | | | | PST | | + + + + + | Body Mass Index | 27.82 | 02/23/2017 11:03 AM | | | | | PST | | + + + + + documented in this encounter Discharge Instructions Instructions Ariana Falcon RN - 02/23/2017Formatting of this note might be different fr om the original. Types of Anesthesia Your anesthesiologist is a sanabria member of your surgical team. He or she gives you anesthetic s (medications to keep you comfortable and decrease your awareness of surgery) and monitors your condition to keep you safe during surgery. You will have1 of3 kinds of anesthesia d uring your surgery. Monitored anesthesia care (MAC) Often used for surgery that is short or not too invasive. Sedatives (medicines to relax you) are given through an IV (intravenous) line. The area around the surgical site is usually numbed with a local anesthetic. You may choose to remain awake or sleep lightly. Regional anesthesia (sometimes called spinal epidural or jannie block) Often used for surgery on the arms, legs, and abdomen. It is also used during childbirth . A specific region of your body is numbed by injecting anesthetic near nerves,near your spine, or near the operative site. You may also be given sedatives through an IV line to relax you. With regional anesthesia, you may choose to remain awake or sleep lightly. General anesthesia Often used for extensive surgery, such as on the heart, brain, or abdominal operation. Also used when the patient wants to be totally asleep. May be given as a gas that you breathe and as medicines that are injected through an IV line. Because you are asleep, you feel no pain and remember nothing of the surgery. The risks and complications of anesthesia depend on your overall health. If you are healthy , the risks are low. The risks are higher for patients with heart or lung problems. Your ane sthesiologist or nurse bull chain operator will discuss the risks with you. Date Last Reviewed: 01/09/[id number] [employer] [place] [address], [place] [address]. All righ ts reserved. This information is not intended as a substitute for professional medical care. Always follow your healthcare professional's instructions. documented in this encounter Medications at Time of Discharge + + + +---------+--------+ + | Medication | Sig | Dispensed | Refills | Start | End Date | | | | | | Date | | + + + +---------+--------+ + | ARIPiprazole | Take 5 mg by mouth | | 0 | | | | (ABILIFY) 5 mg | Daily. | | | | | | tablet | | | | | | + + + +---------+--------+ + | cloNIDine | Take 0.2 mg by mouth | | 0 | | | | (CATAPRES) 0.2 MG | 2 times daily. | | | | | | tablet | | | | | | + + + +---------+--------+ + | levETIRAcetam | Take 500 mg by mouth | | 0 | | | | (KEPPRA) 500 mg | 2 times daily. | | | | | | tablet | | | | | | + + + +---------+--------+ + | LEVOTHYROXINE | Take 0.075 mg by | | 0 | | | | SODIUM PO | mouth Daily. | | | | | + + + +---------+--------+ + | metoprolol | Take 100 mg by mouth | | 0 | | | | succinate | Daily. | | | | | | (TOPROL-XL) 100 mg | | | | | | | ER tablet | | | | | | + + + +---------+--------+ + | omeprazole | Take 40 mg by mouth | | 0 | | | | (PRILOSEC) 40 MG | nightly. | | | | | | capsule | | | | | | + + + +---------+--------+ + | mirtazapine | Take by mouth | | 0 | | | | (REMERON) 15 MG | nightly. 02/09 TABLET | | | | 0 | | tablet | AT BEDTIME | | | | | + + + +---------+--------+ + | vortioxetine | Take 20 mg by mouth | | 0 | | | | (TRINTELLIX) 20 mg | Daily. | | | | 0 | | tablet | | | | | | + + + +---------+--------+ + documented as of this encounter Plan of Treatment Not on filedocumented as of this encounter Procedures + +--------+ + + + | Procedure Name | Priori | Date/Time | Associated Diagnosis | Comments | | | ty | | | | + +--------+ + + + | CAMPYLOBACTER | Routin | 02/23/2017 | | Results for this | | AGQUAL | e | 12:04 PM | | procedure are in the | | | | PST | | results section. | + +--------+ + + + | CULTURE, STOOL | Routin | 02/23/2017 | | Results for this | | RESULT | e | 12:04 PM | | procedure are in the | | | | PST | | results section. | + +--------+ + + + | RESULT | Routin | 02/23/2017 | | Results for this | | (NON-ORD)[facility] | e | 12:04 PM | | procedure are in the | | | | PST | | results section. | + +--------+ + + + | SHIGATOXIN 1 AND 2 | Routin | 02/23/2017 | | Results for this | | | e | 12:04 PM | | procedure are in the | | | | PST | | results section. | + +--------+ + + + | LACTOFERRIN, FECAL, | Routin | 02/23/2017 | | Results for this | | QUAL | e | 12:04 PM | | procedure are in the | | | | PST | | results section. | + +--------+ + + + | OVA AND PARASITE | Routin | 02/23/2017 | | Results for this | | EXAMINATION | e | 12:04 PM | | procedure are in the | | | | PST | | results section. | + +--------+ + + + | CRYPTOSPORIDIUM AG | Routin | 02/23/2017 | | Results for this | | | e | 12:04 PM | | procedure are in the | | | | PST | | results section. | + +--------+ + + + | GIARDIA AG, EIA, | Routin | 02/23/2017 | | Results for this | | STOOL | e | 12:04 PM | | procedure are in the | | | | PST | | results section. | + +--------+ + + + | CLOSTRIDIUM | Routin | 02/23/2017 | | Results for this | | DIFFICILE A AND B | e | 12:04 PM | | procedure are in the | | EIA | | PST | | results section. | + +--------+ + + + | CULTURE, STOOL | Routin | 02/23/2017 | | Results for this | | | e | 12:04 PM | | procedure are in the | | | | PST | | results section. | + +--------+ + + + | HELICOBACTER PYLORI | Routin | 02/23/2017 | | Results for this | | BIOPSY | e | 11:48 AM | | procedure are in the | | | | PST | | results section. | + +--------+ + + + | COLONOSCOPY | | 02/23/2017 | Diarrhea, | | | | | 11:38 AM | unspecified type | | | | | PST | (R19.7), Weight | | | | | | loss, unintentional | | | | | | (R63.4), Seizure | | | | | | disorder (HCC) | | | | | | (G40.909), alcohol | | | | | | abuse F10.10 | | + +--------+ + + + | EGD | | 02/23/2017 | Diarrhea, | | | | | 11:38 AM | unspecified type | | | | | PST | (R19.7), Weight | | | | | | loss, unintentional | | | | | | (R63.4), Seizure | | | | | | disorder (HCC) | | | | | | (G40.906), alcohol | | | | | | abuse F10.10 | | + +--------+ + + + | EGD | Routin | 02/23/2017 | | Results for this | | | e | 11:35 AM | | procedure are in the | | | | PST | | results section. | + +--------+ + + + | COLONOSCOPY | Routin | 02/23/2017 | | Results for this | | | e | 11:34 AM | | procedure are in the | | | | PST | | results section. | + +--------+ + + + | SURGICAL PATHOLOGY | Routin | 02/23/2017 | | Results for this | | EXAM | e | 12:00 AM | | procedure are in the | | | | PST | | results section. | + +--------+ + + + documented in this encounter Results RESULT REFLEX (02/23/2017 12:04 PM PST) + + + + + + | Component | Value | Ref Range | Performed | Pathologist | | | | | At | Signature | + + + + + + | Result | CommentComment: No ova, | | REFERENCE | | | | cysts, or parasites | | LAB [facility] | | | | seen. | | - [facility] | | + + + + + + + + | Specimen | + + | Stool - Stool | | specimen (specimen) | + + + + + | Narrative | Performed At | + + + | Performed at: 01 - [facility] [place] [address], | REFERENCE LAB | | [place], [place] [id number] Tire Servicer: Romulo Reyes MD, Phone: | [facility] | | [phone] | | + + + + + + + + | Performing | Address | City/State/Zipcode | Phone Number | | Organization | | | | + + + + + | REFERENCE LAB | [address] | [place], [place] | [phone] | | [facility] | [address] | [address] | | + + + + + Campylobacter Ag,Qual (02/23/2017 12:04 PM PST) + + + + + + | Component | Value | Ref Range | Performed | Pathologist | | | | | At | Signature | + + + + + + | Campylobact | Negative | Negative | [facility] | | | er AG, Qual | | | [facility] | | | | | | MEDICAL | | | | | | CENTER - | | | | | | LABORATORY | | + + + + + + + + | Specimen | + + | Stool - Stool | | specimen (specimen) | + + + + + + + | Performing | Address | City/State/Zipcode | Phone Number | | Organization | | | | + + + + + | [facility] | [address] | [place] | [phone] | | [facility] | | [address] | | | - LABORATORY | | | | + + + + + Culture, Stool Result (02/23/2017 12:04 PM PST) + + + + + + | Component | Value | Ref Range | Performed | Pathologist | | | | | At | Signature | + + + + + + | Culture | No Salmonella, Shigella, | | [facility] | | | | Aeromonas, Plesiomonas, | | [facility] | | | | E. coli O157 or | | MEDICAL | | | | Yersinia isolated. | | CENTER - | | | | | | LABORATORY | | + + + + + + | Culture | 4+ Usual FloraComment: | | [facility] | | | | Consistent with usual | | [facility] | | | | enteric margie. | | MEDICAL | | | | | | CENTER - | | | | | | LABORATORY | | + + + + + + + + | Specimen | + + | Stool - Stool | | specimen (specimen) | + + + + + + + | Performing | Address | City/State/Zipcode | Phone Number | | Organization | | | | + + + + + | [facility] | [address] | [place] | [phone] | | [facility] | | [address] | | | - LABORATORY | | | | + + + + + Shigatoxin 1 and 2 (02/23/2017 12:04 PM PST) + + + + + + | Component | Value | Ref Range | Performed | Pathologist | | | | | At | Signature | + + + + + + | Shigatoxin | Negative | Negative | [facility] | | | 1 | | | [facility] | | | | | | MEDICAL | | | | | | CENTER - | | | | | | LABORATORY | | + + + + + + | Shigatoxin | Negative | Negative | [facility] | | | 2 | | | [facility] | | | | | | MEDICAL | | | | | | CENTER - | | | | | | LABORATORY | | + + + + + + + + | Specimen | + + | Stool - Stool | | specimen (specimen) | + + + + + + + | Performing | Address | City/State/Zipcode | Phone Number | | Organization | | | | + + + + + | [facility] | [address] | [place] | [phone] | | [facility] | | [address] | | | - LABORATORY | | | | + + + + + Ova and Parasite Examination (02/23/2017 12:04 PM PST) + + + + + + | Component | Value | Ref Range | Performed | Pathologist | | | | | At | Signature | + + + + + + | Ova + | Final reportComment: | | REFERENCE | | | Parasite | These results were | | LAB [facility] | | | Exam | obtained using wet | | - [facility] | | | | preparation(s) and | | | | | | trichromestained smear. | | | | | | This test does not | | | | | | include testing for | | | | | | Cryptosporidiumparvum, | | | | | | Cyclospora, or | | | | | | Microsporidia. | | | | + + + + + + + + | Specimen | + + | Stool - Stool | | specimen (specimen) | + + + + + | Narrative | Performed At | + + + | Performed at: 01 - [facility] [place] [address], | REFERENCE LAB | | [place], [place] [id number] Tire Servicer: Romulo Reyes MD, Phone: | [facility] | | [phone] | | + + + + + + + + | Performing | Address | City/State/Zipcode | Phone Number | | Organization | | | | + + + + + | REFERENCE LAB | [address] | [place], [place] | [phone] | | [facility] | [address] | [address] | | + + + + + Lactoferrin, Fecal, Qual (02/23/2017 12:04 PM PST) + + + + + + | Component | Value | Ref Range | Performed | Pathologist | | | | | At | Signature | + + + + + + | Lactoferrin | NegativeComment: This is | Negative | [facility] | | | , Qual | a corrected result. | | [facility] | | | | Previous result was | | MEDICAL | | | | Positive on 02/23/2017 at | | CENTER - | | | | 1329 PST | | LABORATORY | | + + + + + + + + | Specimen | + + | Stool - Stool | | specimen (specimen) | + + + + + + + | Performing | Address | City/State/Zipcode | Phone Number | | Organization | | | | + + + + + | [facility] | [address] | [place] | [phone] | | [facility] | | [address] | | | - LABORATORY | | | | + + + + + Clostridium difficile A and B EIA (02/23/2017 12:04 PM PST) + + + + + + | Component | Value | Ref Range | Performed | Pathologist | | | | | At | Signature | + + + + + + | Clostridium | NegativeComment: This | Negative | [facility] | | | Difficile | is a corrected result. | | [facility] | | | GDH Antigen | Previous result was | | MEDICAL | | | | Positive on 02/23/2017 at | | CENTER - | | | | 1348 PST | | LABORATORY | | + + + + + + | C. Diff | NegativeComment: No data | Negative | [facility] | | | Toxin A/B | exists on the effects | | [facility] | | | EIA | of colonic washes, | | MEDICAL | | | | barium enemas, | | CENTER - | | | | laxatives, or bowel | | LABORATORY | | | | preparations on the | | | | | | performance of this | | | | | | test. All of these | | | | | | procedures can result in | | | | | | extensive dilution or | | | | | | the presence of | | | | | | additives that may | | | | | | affect test performance. | | | | + + + + + + + + | Specimen | + + | Stool - Stool | | specimen (specimen) | + + + + + + + | Performing | Address | City/State/Zipcode | Phone Number | | Organization | | | | + + + + + | [facility] | [address] | [place] | [phone] | | [facility] | | [address] | | | - LABORATORY | | | | + + + + + Cryptosporidium Ag (02/23/2017 12:04 PM PST) + + + + + + | Component | Value | Ref Range | Performed | Pathologist | | | | | At | Signature | + + + + + + | Cryptospori | Negative | Negative | [facility] | | | dium | | | [facility] | | | Antigen | | | MEDICAL | | | | | | CENTER - | | | | | | LABORATORY | | + + + + + + + + | Specimen | + + | Stool - Stool | | specimen (specimen) | + + + + + + + | Performing | Address | City/State/Zipcode | Phone Number | | Organization | | | | + + + + + | [facility] | [address] | [place] | [phone] | | [facility] | | [address] | | | - LABORATORY | | | | + + + + + Giardia Ag, EIA, Stool (02/23/2017 12:04 PM PST) + + + + + + | Component | Value | Ref Range | Performed | Pathologist | | | | | At | Signature | + + + + + + | Giardia | Negative | Negative | [facility] | | | Antigen, | | | [facility] | | | Stool | | | MEDICAL | | | | | | CENTER - | | | | | | LABORATORY | | + + + + + + + + | Specimen | + + | Stool - Stool | | specimen (specimen) | + + + + + + + | Performing | Address | City/State/Zipcode | Phone Number | | Organization | | | | + + + + + | [facility] | [address] | [place] | [phone] | | [facility] | | [address] | | | - LABORATORY | | | | + + + + + Helicobactor pylori Biopsy (02/23/2017 11:48 AM PST) + + + + + + | Component | Value | Ref Range | Performed | Pathologist | | | | | At | Signature | + + + + + + | Helicobacte | Negative | Negative | [facility] | | | r pylori Ag | | | [facility] | | | | | | MEDICAL | | | | | | CENTER - | | | | | | LABORATORY | | + + + + + + + + | Specimen | + + | Tissue - Entire | | pyloric antrum (body | | structure) | + + + + + + + | Performing | Address | City/State/Zipcode | Phone Number | | Organization | | | | + + + + + | [facility] | [address] | [place] | [phone] | | [facility] | | [address] | | | - LABORATORY | | | | + + + + + EGD (02/23/2017 11:35 AM PST) + + | Specimen | + + | | + + + + -+ | Narrative | Performed At | + + -+ | | [facility] | | GastroenterologyPatient Name: Robby Vieyraednoemi Date: 02/23/2017 | [facility] | | 11:35 AMMRN: [id number] #: [id number] of : | | | 1965Admit Type: AmbulatoryAge: 51Room: [facility] 01Gender: MaleNote | | | Status: FinalizedAttending MD: Tan Mcrae , [facility]cedure: | | | Upper GI endoscopyIndications: Epigastric abdominal pain, | | | DiarrheaProviders: Tan Mcrae MD, Nat Larson | | | BRADLEY Lucas, Angella Wolf, Baker Paint, | | | Robbie Hadley MD (Anesthesia | | | Staff)Referring MD: Jann Jaramillo (Referring | | | MD)Medicines: Propofol per AnesthesiaComplications: | | | No immediate complications. Estimated blood loss: Minimal.Procedure: | | | Pre-Anesthesia Assessment: - Prior to the procedure, a | | | History and Physical was performed, and patient medications and | | | allergies were reviewed. The patient is competent. The risks | | | and benefits of the procedure and the sedation options and | | | risks were discussed with the patient. All questions were | | | answered and informed consent was obtained. Patient identification and | | | proposed procedure were verified by the physician, the nurse, | | | the anesthesiologist and the hazardous materials waste technician in the endoscopy suite. | | | Mental Status Examination: alert and oriented. Airway | | | Examination: normal oropharyngeal airway and neck mobility and | | | Mallampati Class II (the uvula but not tonsillar pillars | | | visualized). Respiratory Examination: clear to auscultation. CV | | | Examination: normal. Prophylactic Antibiotics: The patient | | | does not require prophylactic antibiotics. Prior | | | Anticoagulants: The patient has taken no previous anticoagulant or | | | antiplatelet agents. ASA Grade Assessment: III - A patient with | | | severe systemic disease. After reviewing the risks and | | | benefits, the patient was deemed in satisfactory condition to | | | undergo the procedure. The anesthesia plan was to use monitored | | | anesthesia care (MAC). Immediately prior to administration of | | | medications, the patient was re-assessed for adequacy to | | | receive sedatives. The heart rate, respiratory rate, oxygen | | | saturations, blood pressure, adequacy of pulmonary ventilation, and | | | response to care were monitored throughout the procedure. The | | | physical status of the patient was re-assessed after the | | | procedure. - After reviewing the risks and benefits, the patient | | | was deemed in satisfactory condition to undergo the procedure. | | | - Using IV propofol under the supervision of an | | | anesthesiologist was determined to be medically necessary for | | | this procedure based on severe comorbidity (greater than ASA | | | Grade II), patient's dependence on opiates, sedatives or | | | hypnotics and patient's history of drug or alcohol abuse. | | | - Immediately prior to administration of medications, the patient was | | | re-assessed for adequacy to receive sedatives. - The | | | heart rate, respiratory rate, oxygen saturations, blood pressure, | | | adequacy of pulmonary ventilation, and response to care were | | | monitored throughout the procedure. - The physical status | | | of the patient was re-assessed after the procedure. After | | | obtaining informed consent, the endoscope was passed under direct | | | vision. Throughout the procedure, the patient's blood pressure, | | | pulse, and oxygen saturations were monitored continuously. The | | | Endoscope was introduced through the mouth, and advanced to the | | | third part of duodenum. The upper GI endoscopy was | | | accomplished without difficulty. The patient tolerated the | | | procedure well.Findings: The cricopharyngeus, upper third of the | | | esophagus, middle third of the esophagus and lower third of | | | the esophagus were normal. The Z-line was irregular and was | | | found 40 cm from the incisors. Biopsies were taken with a cold | | | forceps for histology. Verification of patient identification | | | for the specimen was done. Estimated blood loss was minimal. | | | Localized mildly erythematous mucosa without bleeding was found on | | | the greater curvature of the stomach, in the gastric antrum | | | and in the prepyloric region of the stomach. Biopsies were | | | taken with a cold forceps for Helicobacter pylori testing using | | | CLOtest. Verification of patient identification for the | | | specimen was done. Estimated blood loss was minimal. The | | | duodenal bulb, first portion of the duodenum, second portion of the | | | duodenum, area of the papilla and third portion of the duodenum | | | were normal. Biopsies for histology were taken with a cold | | | forceps for evaluation of celiac disease. Verification of | | | patient identification for the specimen was done. Estimated | | | blood loss was minimal. The retroflexed view confirmed previous | | | findings,Impression: - Normal cricopharyngeus, upper third of | | | esophagus, middle third of esophagus and lower third of | | | esophagus. - Z-line irregular, 40 cm from the incisors. | | | Biopsied. - Erythematous mucosa in the greater curvature, antrum | | | and prepyloric region of the stomach. Biopsied. - Normal | | | duodenal bulb, first portion of the duodenum, second portion of | | | the duodenum, area of the papilla and third portion of the | | | duodenum. Biopsied. - The retroflexed view confirmed | | | previous findings,Recommendation: - Patient has a contact number | | | available for emergencies. The signs and symptoms of potential | | | delayed complications were discussed with the patient. Return | | | to normal activities tomorrow. Written discharge instructions | | | were provided to the patient. - Discharge patient to home | | | (ambulatory). - Mechanical soft diet for 3 days. - | | | Continue present medications. - No aspirin, ibuprofen, naproxen, | | | or other non-steroidal anti-inflammatory drugs for 7 days | | | after polyp removal. - Await pathology results. - Perform | | | a colonoscopy today. - Return to primary care physician as | | | previously scheduled. - Telephone GI clinic if symptomatic.Tan | | | Nimo Mcrae MD02/23/2017 12:34:44 PMThis report has been signed | | | electronically.Number of Addenda: 0Note Initiated On: 02/23/2017 11:35 | | | AMTotal Procedure Duration: 0 hours 8 minutes 36 seconds Scope In: | | | 11:47:04 AMScope Out: 11:55:40 AM [facility] | | | [place], [address] [place] [address] | | | - Mechanical soft diet for 3 days. | | | - Continue present medications. | | | - No aspirin, ibuprofen, naproxen, or other non-steroidal | | | anti-inflammatory drugs for 7 days after polyp removal. | | | - Await pathology results. | | | - Perform a colonoscopy today. | | | - Return to primary care physician as previously scheduled. | | | - Telephone GI clinic if symptomatic. | | |Tan Mcrae MD | | |02/23/2017 12:34:44 PM | | |This report has been signed electronically. | | |Number of Addenda: 0 | | |Note Initiated On: 02/23/2017 11:35 AM | | |Total Procedure Duration: 0 hours 8 minutes 36 seconds | | |Scope In: 11:47:04 AM | | |Scope Out: 11:55:40 AM | | | [facility], [address] [place], [place] [address] , [place], [place] | | | [address] | | + + -+ + +---------+ + + | Performing | Address | City/State/Zipcode | Phone Number | | Organization | | | | + +---------+ + + | [facility] | | | | + +---------+ + + COLONOSCOPY (02/23/2017 11:34 AM PST) + + | Specimen | + + | | + + + + -+ | Narrative | Performed At | + + -+ | | [facility] | | GastroenterologyPatient Name: Robby FifeProcedure Date: 02/23/2017 | [facility] | | 11:34 AMMRN: [id number] #: [id number] of : | | | 1965Admit Type: AmbulatoryAge: 51Room: [facility] 01Gender: MaleNote | | | Status: FinalizedAttending MD: Tan Mcrae , [facility]cedure: | | | ColonoscopyIndications: Clinically significant diarrhea of | | | unexplained originProviders: Tan Mcrae MD, Nat | | | Neo Lucas RN, Angella Wolf, | | | Baker Paint, Robbie Hadley MD (Anesthesia | | | Staff)Referring MD: Jann Jaramillo (Referring | | | MD)Medicines: Propofol per AnesthesiaComplications: | | | No immediate complications. Estimated blood loss: Minimal.Procedure: | | | Pre-Anesthesia Assessment: - Prior to the procedure, a | | | History and Physical was performed, and patient medications, | | | allergies and sensitivities were reviewed. The patient's | | | tolerance of previous anesthesia was reviewed. - Prior to the | | | procedure, a History and Physical was performed, and patient | | | medications and allergies were reviewed. The patient is | | | competent. The risks and benefits of the procedure and the sedation | | | options and risks were discussed with the patient. All questions | | | were answered and informed consent was obtained. Patient | | | identification and proposed procedure were verified. | | | Prophylactic Antibiotics: The patient does not require | | | prophylactic antibiotics. Prior Anticoagulants: The patient has | | | taken no previous anticoagulant or antiplatelet agents. ASA | | | Grade Assessment: III - A patient with severe systemic disease. After | | | reviewing the risks and benefits, the patient was deemed in | | | satisfactory condition to undergo the procedure. The anesthesia | | | plan was to use monitored anesthesia care (MAC). Immediately | | | prior to administration of medications, the patient was | | | re-assessed for adequacy to receive sedatives. The heart rate, | | | respiratory rate, oxygen saturations, blood pressure, adequacy | | | of pulmonary ventilation, and response to care were monitored | | | throughout the procedure. The physical status of the patient | | | was re-assessed after the procedure. - After reviewing the risks | | | and benefits, the patient was deemed in satisfactory condition | | | to undergo the procedure. - Using IV propofol under the | | | supervision of an anesthesiologist was determined to be | | | medically necessary for this procedure based on severe | | | comorbidity (greater than ASA Grade II), patient's dependence on | | | opiates, sedatives or hypnotics and patient's history of drug or | | | alcohol abuse. - Immediately prior to administration of | | | medications, the patient was re-assessed for adequacy to | | | receive sedatives. - The heart rate, respiratory rate, oxygen | | | saturations, blood pressure, adequacy of pulmonary ventilation, | | | and response to care were monitored throughout the procedure. | | | - The physical status of the patient was re-assessed after the | | | procedure. After I obtained informed consent, the scope was | | | passed under direct vision. Throughout the procedure, the | | | patient's blood pressure, pulse, and oxygen saturations were | | | monitored continuously. The Colonoscope was introduced through | | | the anus and advanced to the cecum, identified by the | | | appendiceal orifice, ileocecal valve and palpation. The colonoscopy | | | was performed without difficulty. The patient tolerated the | | | procedure well. The quality of the bowel preparation was | | | good.Findings: The perianal and digital rectal examinations were | | | normal. Pertinent negatives include normal sphincter tone, no | | | palpable rectal lesions and normal prostate (size, shape, and | | | consistency). Two sessile polyps were found in the proximal | | | transverse colon. The polyps were small in size. These polyps | | | were removed with a hot snare. Resection and retrieval were | | | complete. Verification of patient identification for the | | | specimen was done. Estimated blood loss was minimal. The | | | colon (entire examined portion) appeared normal. Biopsies for | | | histology were taken with a cold forceps from the ascending colon and | | | descending colon for evaluation of microscopic colitis. | | | Verification of patient identification for the specimen was | | | done. Estimated blood loss was minimal. The exam was | | | otherwise without abnormality. The retroflexed view of the | | | distal rectum and anal verge was normal and showed no anal or | | | rectal abnormalities.Impression: - Two small polyps in the | | | proximal transverse colon, removed with a hot snare. Resected | | | and retrieved. - The entire examined colon is normal. Biopsied. | | | - The examination was otherwise normal. - The distal | | | rectum and anal verge are normal on retroflexion view.Recommendation: | | | - Patient has a contact number available for emergencies. The | | | signs and symptoms of potential delayed complications were | | | discussed with the patient. Return to normal activities | | | tomorrow. Written discharge instructions were provided to the | | | patient. - Discharge patient to home (ambulatory). - | | | Mechanical soft diet for 3 days. - Continue present medications. | | | - No aspirin, ibuprofen, naproxen, or other non-steroidal | | | anti-inflammatory drugs for 7 days after polyp removal. - | | | Await pathology results. - Repeat colonoscopy for surveillance | | | based on pathology results. - Return to primary care physician | | | as previously scheduled. - Telephone GI clinic for pathology | | | results in 1 week.Tan Mcrae MD02/23/2017 12:38:57 PMThis report | | | has been signed electronically.Number of Addenda: 0Note Initiated On: | | | 02/23/2017 11:34 AMScope Withdrawal Time: 0 hours 15 minutes 44 seconds | | | Total Procedure Duration: 0 hours 21 minutes 33 seconds Scope In: | | | 12:01:31 PMScope Out: 12:23:04 PM [facility] | | | [place], [address] [place] [address] | | | - Continue present medications. | | | - No aspirin, ibuprofen, naproxen, or other non-steroidal | | | anti-inflammatory drugs for 7 days after polyp removal. | | | - Await pathology results. | | | - Repeat colonoscopy for surveillance based on pathology results. | | | - Return to primary care physician as previously scheduled. | | | - Telephone GI clinic for pathology results in 1 week. | | |Tan Mcrae MD | | |02/23/2017 12:38:57 PM | | |This report has been signed electronically. | | |Number of Addenda: 0 | | |Note Initiated On: 02/23/2017 11:34 AM | | |Scope Withdrawal Time: 0 hours 15 minutes 44 seconds | | |Total Procedure Duration: 0 hours 21 minutes 33 seconds | | |Scope In: 12:01:31 PM | | |Scope Out: 12:23:04 PM | | | [facility], [address] [place], [place] | | | [address] | | + + -+ + +---------+ + + | Performing | Address | City/State/Zipcode | Phone Number | | Organization | | | | + +---------+ + + | [facility] | | | | + +---------+ + + Surgical Pathology Exam (02/23/2017 12:00 AM PST) + + | Specimen | + + | | + + + + + | Narrative | Performed At | + + + | SPECIMEN(S): A DUODENAL BIOPSY SPECIMEN(S): B DISTAL ESOPHAGEAL | [facility] | | BIOPSY SPECIMEN(S): C TRANSVERSE COLON POLYP SPECIMEN(S): D RANDOM | [facility] | | RIGHT COLON BIOPSY SPECIMEN(S): E RANDOM LEFT COLON BIOPSY | | | SPECIMEN SOURCE: A. DUODENAL BIOPSY B. DISTAL ESOPHAGEAL BIOPSY C. | | | TRANSVERSE COLON POLYP D. RANDOM RIGHT COLON BIOPSY E. RANDOM LEFT | | | COLON BIOPSY CLINICAL HISTORY: R19.7 (diarrhea, unspecified), | | | R63.4 (abnormal weight loss), G40.909 (Epilepsy, unspecified, not | | | intractable, without status epilepticus), F10.10 (alcohol abuse, | | | uncomplicated) MICROSCOPIC DESCRIPTION: Histologic sections of | | | all submitted blocks are examined by light microscopy. These findings, | | | together with the gross examination, support the pathologic | | | diagnosis. FINAL PATHOLOGIC DIAGNOSIS: A. Duodenal biopsy: - | | | Fragments of duodenal mucosa with preserved villous architecture. - | | | No evidence of significantly increased intraepithelial lymphocytes. | | | B. Esophagus, distal, biopsy: - Squamocolumnar junctional | | | mucosa with foci of intestinal metaplasia, chronic inflammation and | | | reactive epithelial changes. - Negative for dysplasia as sampled. | | | C. Colon, transverse polyp, biopsy: - Fragments of tubular | | | adenoma(s). D. Colon, random right, biopsy: - Fragments of | | | colonic mucosa with no significant diagnostic abnormality. E. | | | Colon, random left, biopsy: - Fragments of colonic mucosa with no | | | significant diagnostic abnormality. CLR:[facility]:C2NR GROSS | | | DESCRIPTION: Received in five parts. A. The specimen is labeled | | | "[place], Robby" and designated "duodenal bx" on the requisition. | | | Received in formalin are five pink-griffin colored tissue fragments, | | | 0.2-0.5 cm, all into (A1). B. The specimen is labeled "[place], | | | Robby" and designated "distal esophageal bx" on the requisition. | | | Received in formalin are eight cream to griffin colored tissue fragments, | | | 0.15-0.5 cm, all into (B1). C. The specimen is labeled "[place], | | | Robby" and designated "transverse colon polyps" on the requisition. | | | Received in formalin are two pink-griffin colored tissue fragments, | | | 0.4-0.45 cm, all into (C1). D. The specimen is labeled "[place], | | | Robby" and designated "random right colon bx" on the requisition. | | | Received in formalin are five griffin colored tissue fragments, 0.25-0.6 | | | cm, all into (D1). E. The specimen is labeled "[place], Robby" | | | and designated "random left colon bx" on the requisition. Received in | | | formalin are eight griffin colored tissue fragments, 0.15-0.45 cm, all | | | into (E1). yt:GILA:[facility] PERFORMING LABORATORY: Tissue processing | | | and slide preparation were performed by [facility], [address] | [address], [place] [address] (Formal Wear Rental Clerk: Pk | | Adeline Sapp M.D. CLIA#: [id number]). Professional interpretation was | | | performed by [facility], [address], [address], [facility] | | | [place] [address] (Formal Wear Rental Clerk: Pk Sapp M.D.; CLIA#: | | | [id number]). Diagnostician: Melo Shelley MD | | | Pathologist Electronically Signed 02/24/2017 | | + + + + +---------+ + + | Performing | Address | City/State/[facility]ode | Phone Number | | Organization | | | | + +---------+ + + | [facility] | | | | | [place] | | | | + +---------+ + + documented in this encounter Visit Diagnoses + + | Diagnosis | + + | Functional diarrhea - Primary | + + | Epigastric pain Abdominal pain, epigastric | + + | Diarrhea | + + documented in this encounter Administered Medications + +--------+---------+------+------+------+ | Medication Order | MAR | Action | Dose | Rate | Site | | | Action | Date | | | | + +--------+---------+------+------+------+ + +---+ | albuterol 2.5 mg/3 mL nebulizer | | | solution 2.5 mg 2.5 mg, | | | Nebulization, ONCE PRN, Wheezing, | | | Starting 02/23/17 at 1234, | | | For 1 dose, Notify anesthesia if | | | patient is wheezing and does not | | | have a history of asthma or COPD | | | or current smoking., | | | Recovery/Phase I | | + +---+ | | | + +---+ + +---------+ +---+---+---+ | lactated ringers (LR) infusion | New Bag | 02/23/19 | | | | | at 100 mL/hr, Intravenous, | | 18 11:00 | | | | | CONTINUOUS, Starting 02/23/17 | | AM PST | | | | | at 1130, Pre-op | | | | | | + +---------+ +---+---+---+ + +---+ | | | + +---+ | ondansetron (ZOFRAN) injection | | | 4 mg 4 mg, Oral, EVERY 4 HOURS | | | PRN, Nausea, Vomiting, Starting | | | 02/23/17 at 1234, | | | Recovery/Phase I | | + +---+ | | | + +---+ | ondansetron (ZOFRAN) injection | | | 4 mg 4 mg, Intravenous, ONCE | | | PRN, Nausea, Starting 02/23/17 | | | at 1234, For 1 dose, | | | Recovery/Phase I | | + +---+ | | | + +---+ documented in this encounter
--- OUTSIDE RECORDS SUMMARY | ~2019-06-13 | XMS | Encounter Summary ---
Demographics + + + | Address | [address] | | | [place] [address] | + + + | Home Phone | | + + + | Preferred Language | Unknown | + + + | Marital Status | Single | + + + | Denominational Affiliation | 1073 | + + + | Race | Unknown | + + + | Ethnic Group | Unknown | + + + Author + + + | Author | [facility] | | | and [place] | + + + | Organization | [facility] | | | and [place] | + + + | Address | Unknown | + + + | Phone | Unavailable | + + + Support + + + + + | Name | Relationship | Address | Phone | + + + + + | Robby Zamora | [place] | [address] | | | | | [place] [address] | | + + + + + Care Team Providers + +------+ + | Care Fixing Machine Operator Name | Role | Phone | [...] 2016 | | GASTROENTEROLOGY | [address], [place] | | | | | [address] | [address] | | | | | [address] [place], [place] | [address] | | | | | [address] | | | | | | [phone] | | | +--------+ + + + [...]
--- OUTSIDE RECORDS SUMMARY | ~2019-06-13 | XMS | Encounter Summary ---
Demographics + + + | Address | [address] | | | [place] [address] | + + + | Home Phone | | + + + | Preferred Language | Unknown | + + + | Marital Status | Single | + + + | Catholic Affiliation | 1073 | + + + | Race | Unknown | + + + | Ethnic Group | Unknown | + + + Author + + + | Author | [facility] | | | and [place] | + + + | Organization | [facility] | | | and [place] | + + + | Address | Unknown | + + + | Phone | Unavailable | + + + Support + + + + + | Name | Relationship | Address | Phone | + + + + + | Robby Zamora | [place] | [address] | | | | | [place] [address] | | + + + + + Care Team Providers + +------+ + | Care Purchasing Administrator Name | Role | Phone | + [...] Mcrae MD | Medication Refill | | 2017 | | GASTROENTEROLOGY | [address], [place] | | | | | [address] | [address] [place], [place] | | | | | [address] [place], [place] | [address] | | | | | [address] | | | | | | [phone] | | | +--------+--------+ + + + [...]
--- OUTSIDE RECORDS SUMMARY | ~2019-06-13 | XMS | Encounter Summary ---
Demographics + + + | Address | [address] | | | [place] [address] | + + + | Home Phone | | + + + | Preferred Language | Unknown | + + + | Marital Status | Single | + + + | Restorationist Affiliation | 1073 | + + + | Race | Unknown | + + + | Ethnic Group | Unknown | + + + Author + + + | Author | [facility] | | | and [place] | + + + | Organization | [facility] | | [...] | | | | | [place] [address] | | + + + + + Care Team Providers + +------+ + | Care Blister Rust Eradicator Name | Role | Phone | + +------+ + PCP | Unavailable | + +------+ + Encounter Details +--------+ + + + + | Date | Type | Department | Care Team | Description | +--------+ + + + + | 09/18/ | Hospital | [facility] | Conversion | Pain | | 2017 | Encounter | CONVERSION DEP [address] | Transaction, | | | | | [address] | Provider Unknown | | | | | [place] | [phone] | | | | | [address] | | | | | | [phone] | | | +--------+ + + + [...] Note | + + | Scooby Lowery Derrick - 09/22/2018 1:07 AM PDT This is a non-reportable procedure | | without a radiologist report and isused for image storage only | + + documented in this encounter Visit Diagnoses + + | Diagnosis | + + | Pain Generalized pain | + + documented in this encounter"
--- OUTSIDE RECORDS SUMMARY | ~2019-06-13 | XMS | Encounter Summary ---
Demographics + + + | Address | [address] | | | [place] [address] | + + + | Home Phone | | + + + | Preferred Language | Unknown | + + + | Marital Status | Single | + + + | Denominational Affiliation | 1073 | + + + | Race | Unknown | + + + | Ethnic Group | Unknown | + + + Author + + + | Author | [facility] | | | and [place] | + + + | Organization | [facility] | | | and [place] | + + + | Address | Unknown | + + + | Phone | Unavailable | + + + Support + + + + + | Name | Relationship | Address | Phone | + + + + + | Robby Zamora | [address] | [address] | | | | | [place] [address] | | + + + + + Care Team Providers + +------+ + | Care Delinquency Prevention Officer Name | Role | Phone | + +------+ + | Jann Jaramillo MD | PCP | | + +------+ + Reason for Visit + + + | Reason | Comments | + + + | Results, Pathology | egd,colon | + + + Encounter Details +--------+ + + + + | Date | Type | Department | Care Team | Description | +--------+ + + + + | 03/04/ | Telephone | [facility] | Tan Mcrae MD | Results, Pathology | | 2018 | | GASTROENTEROLOGY | [address], [address] | (egd,colon) | | | | [address] | [address] [place], [place] | | | | | [address] [place], [place] | [address] | | | | | [address] | | | | | | [phone] | | | +--------+ + + + [...]
--- OUTSIDE RECORDS SUMMARY | ~2019-06-13 | XMS | Encounter Summary ---
Demographics + + + | Address | [address] | | | [place] [address] | + + + | Home Phone | | + + + | Preferred Language | Unknown | + + + | Marital Status | Single | + + + | Presybeterian Affiliation | 1073 | + + + | Race | Unknown | + + + | Ethnic Group | Unknown | + + + Author + + + | Author | [facility] | | | and [place] | + + + | Organization | [facility] | | | and [place] | + + + | Address | Unknown | + + + | Phone | Unavailable | + + + Support + + + + + | Name | Relationship | Address | Phone | + + + + + | Robby Zamora | [place] | [address] | | | | | [place] [address] | | + + + + + Care Team Providers + +------+ + | Care Computer Technical Support Specialist Name | Role | Phone | + [...] | unspecified | [place], | [address], | | | | | Abnormal | [address] | [address] | | | | | weight loss | [place] | [place], | | | | | Nausea with | [address] | [place] [address] | | | | | vomiting, | [address] | Phone: | | | | | unspecified | [place], | [phone] | | | | | Epigastric | [place] [address] | Fax: | | | | | abdominal | Phone: | [phone] | | | | | tenderness | [phone] | | | | | | Procedures | Fax: | | | | | | Office Visit | [phone] | | +--------+--------+ + + + + Encounter Details +--------+---------+ + + + | Date | Type | Department | Care Team | Description | +--------+---------+ + + + | 02/15/ | Office | [facility] | Tan Mcrae MD | Diarrhea, | | 2018 | Visit | GASTROENTEROLOGY | [address], [address] | unspecified type | | | | [address] | [address] [place], [place] | (Primary Dx); Weight | | | | [address] [place], [place] | [address] | loss, | | | | [address] | | unintentional; | | | | [phone] | | Seizure disorder | | | | | | ([facility]); History of | | | | | [...]
--- OUTSIDE RECORDS SUMMARY | ~2019-06-13 | XMS | Encounter Summary ---
Demographics + + + | Address | [address] | | | [place] [address] | + + + | Home Phone | | + + + | Preferred Language | Unknown | + + + | Marital Status | Single | + + + | Baptist Affiliation | 1073 | + + + | Race | Unknown | + + + | Ethnic Group | Unknown | + + + Author + + + | Author | [facility] | | | and [place] | + + + | Organization | [facility] | | | and [...] | | | | | [place] [address] | | + + + + + Care Team Providers + +------+ + | Care Oreman Name | Role | Phone | + +------+ + PCP | Unavailable | + +------+ + Encounter Details +--------+ + + + + | Date | Type | Department | Care Team | Description | +--------+ + + + + | 12/09/ | Hospital | [facility] | Shear Jose R Fournier | | | 2006 | Encounter | MEDICINE [address] | [address] | | | | | [place], [place] | | | | | | [address] | | | | | | [phone] | | | +--------+ + + + [...]
--- OUTSIDE RECORDS SUMMARY | ~2019-06-13 | XMS | Encounter Summary ---
Demographics + + + | Address | [address] | | | [place] [address] | + + + | Home Phone | | + + + | Preferred Language | Unknown | + + + | Marital Status | Single | + + + | Gnosticism Affiliation | 1073 | + + + | Race | Unknown | + + + | Ethnic Group | Unknown | + + + Author + + + | Author | [facility] | | | and [place] | + + + | Organization | [facility] | | | and [...] | | | | | [place] [address] | | + + + + + Care Team Providers + +------+ + | Care Ticket Worker Name | Role | Phone | + [...] | | | | | | | MO | | | | | | | ESOPHAGOGAST | | | | | | | RODUODENOSCO | | | | | | | PY TRANSORAL | | | | | | | DIAGNOSTIC | | | | | | | MO EGD | | | | | | | TRANSORAL | | | | | | | BIOPSY | | | | | | | SINGLE/MULTI | | | | | | | PLE MO | | | | | | | COLONOSCOPY | | | | | | | FLX DX | | | | | | | W/COLLJ SPEC | | | | | | | WHEN PFRMD | | | | | | | MO | | | | | | | COLONOSCOPY | | | | | | | W/BIOPSY | | | | | | | SINGLE/MULTI | | | | | | | PLE MO | | | | | | | COLSC FLX | | | | | | | W/RMVL OF | | | | | | | TUMOR POLYP | | | | | | | LESION SNARE | | | | | | | TQ MO | | | | | | | [...] + | 02/23/ | Anesthesia | [facility] | Robbie Hadley | | | 2017 | Event | [facility] | MD Marie [address] | | | | | [address] | [facility] [place] | | | | | [place] | [address] | | | | | [address] | [phone] | | | | | [phone] | | | +--------+ + + + + Anesthesia Record + + + + + | Procedure Name | Responsible | Anesthesia Start | Anesthesia Stop Time | | | Anesthesiologist | Time | | + + + + + | EGD (N/A Mouth) | Robbie Rodriguezbritanytanya, | 02/23/17 1138 | 02/23/17 1233 | [...] explained and consent obtained. Patient transported to [facility], | | | 8 | | Monitors [...] | | | | Intravenous, PRN, Starting Wed | | 18 11:47 | | | [...]
--- OUTSIDE RECORDS SUMMARY | ~2019-06-13 | XMS | Encounter Summary ---
Demographics + + + | Address | [address] | | | [place] [address] | + + + | Home Phone | | + + + | Preferred Language | Unknown | + + + | Marital Status | Single | + + + | Restorationism Affiliation | 1073 | + + + | Race | Unknown | + + + | Ethnic Group | Unknown | + + + Author + + + | Author | [facility] | | | and [place] | + + + | Organization | [facility] | | [...] | | | | | [place] [address] | | + + + + + Care Team Providers + +------+ + | Care Road Repairer Name | Role | Phone | + +------+ + | Jann Jaramillo MD | PCP | | + +------+ + Reason for Visit + + + | Reason | Comments | + + + | Referral | | + + + Encounter Details +--------+ + + + + | Date | Type | Department | Care Team | Description | +--------+ + + + + | 04/30/ | Telephone | [facility] | Dustin Ernandez | Referral | | 2020 | | GASTROENTEROLOGY | MD Carmella [address] | | | | | [address] | [place] [address] | | | | | [place], [place] | [phone] | | | | | [address] | | | | | | [phone] | | | +--------+ + + + [...]
--- OUTSIDE RECORDS SUMMARY | ~2019-06-13 | XMS | Clinical Summary ---
Demographics + + + | Address | [address] | | | [place] [address] | + + + | Home Phone | | + + + | Preferred Language | Unknown | + + + | Marital Status | Single | + + + | Christianity Affiliation | 1073 | + + + | Race | Unknown | + + + | Ethnic Group | Unknown | + + + Author + + + | Author | [facility] | | | and [place] | + + + | Organization | [facility] | | | and [...] | | | | | [place] [address] | | + + + + + Care Team Providers + +------+ + | Care Title Agent Name | Role | Phone | + +------+ + | Jann Jaramillo MD | PCP | | + +------+ + Allergies No Known Allergies Medications + + + +---------+------+------+-------+ | Medication | Sig | Dispensed | Refills | Star | End | Statu | | | | | | t | Date | s | | | | | | Date | | | + + + +---------+------+------+-------+ | metoprolol | Take 100 mg by mouth | | 0 | | | Activ | | succinate | Daily. | | | | | e | | (TOPROL-XL) 100 mg | | | | | | | | ER tablet | | | | | | | + + + +---------+------+------+-------+ | cloNIDine | Take 0.2 mg by mouth | | 0 | | | Activ | | (CATAPRES) 0.2 MG | 2 times daily. | | | | | e | | tablet | | | | | | | + + + +---------+------+------+-------+ | levETIRAcetam | Take 500 mg by mouth | | 0 | | | Activ | | (KEPPRA) 500 mg | 2 times daily. | | | | | e | | tablet | | | | | | | + + + +---------+------+------+-------+ | LEVOTHYROXINE | Take 0.075 mg by | | 0 | | | Activ | | SODIUM PO | mouth Daily. | | | | | e | + + + +---------+------+------+-------+ | omeprazole | Take 40 mg by mouth | | 0 | | | Activ | | (PRILOSEC) 40 MG | nightly. | | | | | e | | capsule | | | | | | | + + + +---------+------+------+-------+ | ARIPiprazole | Take 5 mg by mouth | | 0 | | | Activ | | (ABILIFY) 5 mg | Daily. | | | | | e | | tablet | | | | | | | + + + +---------+------+------+-------+ | gabapentin | Take 1 capsule by | | 0 | 03/1 | | Activ | | (NEURONTIN) 300 mg | mouth 3 times daily. | | | 4/20 | | e | | capsule | | | | 20 | | | + + + +---------+------+------+-------+ | CREON [id number] | Take 1 capsule by | | 0 | 03/1 | | Activ | | units per capsule | mouth 3 times daily | | | 4/20 | | e | | | (with meals). | | | 20 | | | + + + +---------+------+------+-------+ | oxyCODONE | Take 10 mg by mouth | | 0 | 03/0 | | Activ | | (OXYCONTIN) 10 mg ER | as needed. | | | 5/20 | | e | | abuse-deterrent | | | | 20 | | | | tablet | | | | | | | + + + +---------+------+------+-------+ | amLODIPine | Take 1 tablet by | | 0 | 03/1 | | Activ | | (NORVASC) 10 MG | mouth Daily. | | | 1/20 | | e | | tablet | | | | 20 | | | + + + +---------+------+------+-------+ Active Problems + + + | Problem | Noted Date | + + + | Anxiety and depression | 02/22/2017 | + + + | Hypertension | 02/22/2017 | + + + | Beta Blockers - Daily Use | 02/22/2017 | + + + | Smoker - Daily | 02/22/2017 | + + + | H/O Kidney stones | 02/22/2017 | + + + | Diarrhea | 02/19/2017 | + + + | Epigastric pain | 02/19/2017 | + + + | Seizure disorder | 02/19/2017 | + + + | Weight loss, unintentional | 02/19/2017 | + + + | Bipolar 1 disorder | 08/23/2013 | + + + | Memory loss | 08/23/2013 | + + + | Concussion | 08/23/2013 | + + + | Chronic pain | 08/23/2013 | + + + | Depression | 08/23/2013 | + + + | Lipids abnormal | 08/23/2013 | + + + | Anxiety | 08/23/2013 | + + + Encounters +--------+ + + + + | Date | Type | Specialty | Care Team | Description | +--------+ + + + + | 05/02/ | Office | Gastroenterology | Rohith Montano | Alcohol-induced | | 2019 | Visit | | MD Lazaro | acute pancreatitis | | | | | | without infection or | | | | | | necrosis (Primary | | | | | | Dx); 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); | | | | | | Epigastric abdominal | | | | | | pain; Weight loss; | | | | | | Nausea; Anorexia; | | | | | | Smoker - Daily; | | | | | | Alcohol abuse | +--------+ + + + + | 04/30/ | Telephone | Gastroenterology | Dustin Ernandez | Referral | | 2019 | | | MD Carmella | | +--------+ + + + + from Last 3 Months Family History + + +------+ + | Medical History | Relation | Name | Comments | + + +------+ + | Hypertension | Brother | | | + + +------+ + | Colon polyps | Father | | | + + +------+ + | Diabetes | Father | | | + + +------+ + | Hypertension | Father | | | + + +------+ + | Colon polyps | Mother | | | + + +------+ + | Other (see comment) | Mother | | Respiratory disorder | + + +------+ + | Colon cancer | Neg Hx | | | + + +------+ + + +------+--------+ + | Relation | Name | Status | Comments | + +------+--------+ + | Brother | | Alive | | + +------+--------+ + | Father | | Alive | | + +------+--------+ + | Mother | | Alive | | + +------+--------+ + | Sister | | Alive | | + +------+--------+ + Social History + + + +--------+------+ [...] | | | + +---+---+---+ + + | Tobacco Cessation: Ready to [...] recent travel history available. | + + Last Filed Vital Signs + + + [...] | | + + + + + Plan of Treatment + + + + + | Health Maintenance | Due Date | Last Done | Comments | + + + + + | Hepatitis C | | | | | Screening | 4 | | | + + + + + | Vaccine: | | | | | Pneumococcal 19-64 | 0 | | | | (1 of 1 - PPSV23) | | | | + + + + + | Vaccine: Zoster (1 | | | | | of 2) | 4 | | | + + + + + | Urine Drug Screening | | 09/18/2016 | | | | 8 | | | + + + + + | Lung Cancer | | | | | Screening | 9 | | | + + + + + | Vaccine: | | 10/07/2016, 04/19/1981, | | | Dtap/Tdap/Td (6 - | 7 | 04/22/1973, Additional history | | | Td) | | exists | | + + + + + | Colorectal Cancer | | 02/23/2017, 10/02/2015 | | | Screening | 8 | | | | (Colonoscopy) | | | | + + + + + | Vaccine: Influenza | Completed | 12/02/2018, 11/23/2016 | | + + + + + Results Not on filefrom Last 3 Months Insurance + +--------+ +--------+ +---------+--------+ | Payer | Benefi | Subscriber | Effect | Phone | Address | Type | | | t Plan | ID | estephanie | | | | | | / | | Dates | | | | | | Group | | | | | | + +--------+ +--------+ +---------+--------+ | [employer] | MODA | [id number] | 01/20/ | [phone] | | Medica | | MEDICAID HMO | HEALTH | | 2016-P | 1 | | id | | | MDCD | | [place] | | | | | [place] | | | | | | + +--------+ +--------+ +---------+--------+ | [employer] | MOD[employer] | [id number] | | [phone] | | Medica | | MEDICAID HMO | HEALTH | | 020-Pr | 1 | | id | | | MDCD | | esent | | | | | | [place] | | | | | | + +--------+ +--------+ +---------+--------+ + +--------+ +--------+ + + | Guarantor Name | Accoun | Relation to | Date | Phone | Billing Address | | | t Type | Patient | of | | | | | | | | | | + +--------+ +--------+ + + | Robby Zamora | Person | Self | [birth year] | [address] [place], | | | al/Fam | | 1966 | [phone] | [place] [address] | | | rosemary | | | 0 (Home) | | + +--------+ +--------+ + + | Robby Zamora | Person | Self | [birth year] | | [address] [place], | | | al/Fam | | 1966 | [phone] | [place] [address] | | | [place]mary | | | 0 (Home) | | + +--------+ +--------+ + + Advance Directives + + + + + | Type | Date Recorded | Patient | Explanation | | | | Channel Rebuilder | | + + + + + | Power of | | | | | Drum Printer | | | | + + + + + | Advance | 02/23/2017 10:03 | | | | Directive | AM | | | + + + + +
--- OUTSIDE RECORDS SUMMARY | ~2019-06-13 | XMS | Encounter Summary ---
Demographics + + + | Address | [address] | | | [place] [address] | + + + | Home Phone | | + + + | Preferred Language | Unknown | + + + | Marital Status | Single | + + + | Muslim Affiliation | 1073 | + + + | Race | Unknown | + + + | Ethnic Group | Unknown | + + + Author + + + | Author | [facility] | | | and [place] | + + + | Organization | [facility] | | | and [...] | | | | | [place] [address] | | + + + + + Care Team Providers + +------+ + | Care Chemical Detection Expert Name | Role | Phone | + +------+ + PCP | Unavailable | + +------+ + Encounter Details +--------+ + + + + | Date | Type | Department | Care Team | Description | +--------+ + + + + | 03/04/ | Hospital | [facility] | Shear Jose R Fournier | | | 2007 | Encounter | MEDICINE [address] | [place] | | | | | [place], [place] | | | | | | [address] | | | | | | [phone] | | | +--------+ + + + [...]
--- OUTSIDE RECORDS SUMMARY | ~2019-06-13 | XMS | Encounter Summary ---
Demographics + + + | Address | [address] | | | [place] [address] | + + + | Home Phone | | + + + | Preferred Language | Unknown | + + + | Marital Status | Single | + + + | Orthodox Affiliation | 1073 | + + + | Race | Unknown | + + + | Ethnic Group | Unknown | + + + Author + + + | Author | [facility] | | | and [place] | + + + | Organization | [facility] | | | and [place] | + + + | Address | Unknown | + + + | Phone | Unavailable | + + + Support + + + + + | Name | Relationship | Address | Phone | + + + + + | Robby Zamora | [address] | [address] | | | | | [place] [address] | | + + + + + Care Team Providers + +------+ + | Care Straw Hat Machine Operator Name | Role | Phone | + +------+ + PCP | Unavailable | + +------+ + Encounter Details +--------+ + + + + | Date | Type | Department | Care Team | Description | +--------+ + + + + | 09/18/ | Emergency | [facility] | Zev Martinez, | Recurrent seizures | | 2017 | | MEDICAL CENTER | MD Baldo Lezama | ([facility]); History of | | | | EMERGENCY CENTER | [place] [address] | alcohol abuse | | | | [address] | [phone] | | | | | [place], [place] | | | | | | [address] | | | | | | [phone] | | | +--------+ + + + [...] + + + | Blood Pressure | 144/98 | 09/18/2016 8:48 PM | | | | | PDT | | + + + + + | Pulse | 78 | 09/18/2016 8:48 PM | | | | | PDT | | + + + + + | Temperature | 36.2 C (97.2 F) | 09/18/2016 8:48 PM | | | | | PDT | | + + + + + | Respiratory Rate | 18 | 09/18/2016 8:48 PM | | | | | PDT | | + + + + + | Oxygen Saturation | - | - | | + + + + + | Inhaled Oxygen | - | - | | | Concentration | | | | + + + + + | Weight | 101.8 kg (224 lb 6.9 | 09/18/2016 8:48 PM | | | | oz) | PDT | | + + + + + | Height | - | - | | + + + + + | Body Mass Index | - | - | | + + + + + documented in this encounter Plan of Treatment Not on filedocumented as of this encounter Procedures + +--------+ + + + | Procedure Name | Priori | Date/Time | Associated Diagnosis | Comments | | | ty | | | | + +--------+ + + + | EXTERNAL LAB: CBC | Routin | 09/18/2016 | | Results for this | | | e | 7:59 PM | | procedure are in the | | | | PDT | | results section. | + +--------+ + + + | COMPREHENSIVE | Routin | 09/18/2016 | | Results for this | | METABOLIC PANEL | e | 7:59 PM | | procedure are in the | | | | PDT | | results section. | + +--------+ + + + | DRUGS OF ABUSE | Routin | 09/18/2016 | | Results for this | | SCREEN, URINE (H) | e | 6:46 PM | | procedure are in the | | | | PDT | | results section. | + +--------+ + + + | URINALYSIS, REFLEX | Routin | 09/18/2016 | | Results for this | | MICROSCOPIC AND/OR | e | 6:46 PM | | procedure are in the | | CULTURE | | PDT | | results section. | + +--------+ + + + documented in this encounter Results External Lab: CBC (09/18/2016 7:59 PM PDT) + + + + + + | Component | Value | Ref Range | Performed | Pathologist | | | | | At | Signature | + + + + + + | WBC | 8.66 | 3.80 - 11.00 | EXTERNAL | | | | | K/uL | LAB | | + + + + + + | Red Blood | 4.64 | 4.20 - 5.70 | EXTERNAL | | | Cells | | M/uL | LAB | | | Counted | | | | | + + + + + + | Hemoglobin | 16.2 | 13.2 - 17.0 | EXTERNAL | | | | | g/dL | LAB | | + + + + + + | Hematocrit, | 46.5 | 39.0 - 50.0 % | EXTERNAL | | | POC | | | LAB | | + + + + + + | MCV | 100.3 (H) | 80.0 - 100.0 fl | EXTERNAL | | | | | | LAB | | + + + + + + | MCH | 35.0 (H) | 27.0 - 34.0 pg | EXTERNAL | | | | | | LAB | | + + + + + + | MCHC | 34.8 | 32.0 - 35.5 | EXTERNAL | | | | | g/dL | LAB | | + + + + + + | RDW-CV | 53.8 (H) | 37 - 53 fl | EXTERNAL | | | | | | LAB | | + + + + + + | Platelet | 225 | 150 - 400 K/uL | EXTERNAL | | | Count | | | LAB | | | Plasma | | | | | + + + + + + | MPV | 8.0 | fl | EXTERNAL | | | | | | LAB | | + + + + + + | Differentia | AUTOMATED | | EXTERNAL | | | l Type | | | LAB | | + + + + + + | % Segmented | 51.39 | % | EXTERNAL | | | | | | LAB | | | Neutrophils | | | | | + + + + + + | % | 38.39 | % | EXTERNAL | | | Lymphocytes | | | LAB | | + + + + + + | % Monocytes | 7.12 | % | EXTERNAL | | | | | | LAB | | + + + + + + | % | 2.09 | % | EXTERNAL | | | Eosinophils | | | LAB | | + + + + + + | % Basophils | 1.01 | % | EXTERNAL | | | | | | LAB | | + + + + + + | Absolute | 4.45 | 1.90 - 7.40 | EXTERNAL | | | Segmented | | K/uL | LAB | | | Neutrophils | | | | | + + + + + + | Absolute | 3.33 | 1.00 - 3.90 | EXTERNAL | | | Lymphocytes | | K/uL | LAB | | + + + + + + | Absolute | 0.62 | 0.00 - 0.80 | EXTERNAL | | | Monocytes | | K/uL | LAB | | + + + + + + | Absolute | 0.18 | 0.00 - 0.50 | EXTERNAL | | | Eosinophils | | K/uL | LAB | | + + + + + + | Absolute | 0.09Comment: Testing | 0.00 - 0.10 | EXTERNAL | | | Basophils | performed at [facility];[address] | LAB | | | [address];[place], [place] | | | | | | [address] | | | | + + + + + + + + | Specimen | + + | Blood specimen | | (specimen) | + + + +---------+ + + | Performing | Address | City/State/Zipcode | Phone Number | | Organization | | | | + +---------+ + + | EXTERNAL LAB | | | | + +---------+ + + Comprehensive Metabolic Panel (09/18/2016 7:59 PM PDT) + + + + + + | Component | Value | Ref Range | Performed | Pathologist | | | | | At | Signature | + + + + + + | Na | 140 | 135 - 145 | EXTERNAL | | | | | mmol/L | LAB | | + + + + + + | K | 5.1 (H) | 3.5 - 4.9 | EXTERNAL | | | | | mmol/L | LAB | | + + + + + + | Cl | 107 | 99 - 109 mmol/L | EXTERNAL | | | | | | LAB | | + + + + + + | CO2 | 26 | 23 - 32 mmol/L | EXTERNAL | | | | | | LAB | | + + + + + + | Anion Gap | 12 | 5 - 20 mmol/L | EXTERNAL | | | | | | LAB | | + + + + + + | Glucose, | 98 | 65 - 99 mg/dL | EXTERNAL | | | Fasting | | | LAB | | + + + + + + | BUN | 11 | 8 - 25 mg/dL | EXTERNAL | | | | | | LAB | | + + + + + + | Creatinine | 0.84 | 0.70 - 1.30 | EXTERNAL | | | | | mg/dL | LAB | | + + + + + + | BUN/Creatin | 13 | | EXTERNAL | | | ine Ratio | | | LAB | | + + + + + + | Calcium | 9.9 | 8.5 - 10.5 | EXTERNAL | | | | | mg/dL | LAB | | + + + + + + | Protein, | 8.0 | 6.3 - 8.2 g/dL | EXTERNAL | | | Total | | | LAB | | + + + + + + | Albumin | 3.8 | 3.6 - 5.0 g/dL | EXTERNAL | | | | | | LAB | | + + + + + + | Globulin | 4.2 | 1.3 - 4.9 g/dL | EXTERNAL | | | | | | LAB | | + + + + + + | A/G Ratio | 0.9 (L) | 1.0 - 2.4 | EXTERNAL | | | | | | LAB | | + + + + + + | Bilirubin | 0.5 | 0.1 - 1.5 mg/dL | EXTERNAL | | | Total | | | LAB | | + + + + + + | ALP, | 90 | 35 - 115 U/L | EXTERNAL | | | External | | | LAB | | + + + + + + | AST | 42 | 10 - 45 U/L | EXTERNAL | | | | | | LAB | | + + + + + + | ALT | 59 | 10 - 65 U/L | EXTERNAL | | | | | | LAB | | + + + + + + | Estimated | >60Comment: GFR <60: | mL/min/1.73m2 | EXTERNAL | | | GFR | CHRONIC KIDNEY DISEASE, | | LAB | | | | IF FOUND OVER A 3 MONTH | | | | | | PERIOD.GFR <15: KIDNEY | | | | | | FAILURE.FOR | | | | | | AMERICANS, MULTIPLY THE | | | | | | CALCULATED GFR BY | | | | | | 1.210.Testing performed | | | | | | at [facility];[address] [place] [address] | | | | | | Blvd;[place] [address] | | | | + + + + + + + + | Specimen | + + | Blood specimen | | (specimen) | + + + +---------+ + + | Performing | Address | City/State/Zipcode | Phone Number | | Organization | | | | + +---------+ + + | EXTERNAL LAB | | | | + +---------+ + + Drugs Of ABuse Screen, Urine (H) (09/18/2016 6:46 PM PDT) + + + + + + | Component | Value | Ref Range | Performed | Pathologist | | | | | At | Signature | + + + + + + | Methampheta | NEGATIVEComment: | | EXTERNAL | | | mine/ | Positive cutoff for AMP | | LAB | | | Amphetamine | = 1000 ng/mL | | | | | Screen, | | | | | | UA, POC | | | | | + + + + + + | Barbiturate | NEGATIVEComment: | | EXTERNAL | | | s Screen, | Positive cutoff for LACI | | LAB | | | Urine | = 200 ng/mL | | | | + + + + + + | Benzodiazep | NEGATIVEComment: | | EXTERNAL | | | brooks | Positive cutoff for | | LAB | | | Screen, | BENZO = 200 ng/mL | | | | | Urine | | | | | + + + + + + | Cocaine | NEGATIVEComment: | | EXTERNAL | | | | Positive cutoff for JAIR | | LAB | | | | = 300 ng/mL | | | | + + + + + + | Methadone | NEGATIVEComment: | | EXTERNAL | | | | Positive cutoff for MTD | | LAB | | | | = 300 ng/mL | | | | + + + + + + | Opiates | NEGATIVEComment: | | EXTERNAL | | | | Positive cutoff for OPI | | LAB | | | | = 300 ng/mL | | | | + + + + + + | PCP | NEGATIVEComment: | | EXTERNAL | | | | Positive cutoff for PCP | | LAB | | | | = 25 ng/mL | | | | + + + + + + | Cannabinoid | POSITIVE (A)Comment: | | EXTERNAL | | | s Screen, | Positive cutoff for | | LAB | | | Serum | THC = 50 ng/mLThe above | | | | | | are unconfirmed | | | | | | screening results. | | | | | | These results are to | | | | | | be used only for medical | | | | | | (i.e.,treatment) | | | | | | purposes. Unconfirmed | | | | | | screening results must | | | | | | not be used for | | | | | | non-medical purposes | | | | | | (e.g., employment | | | | | | testing, legal | | | | | | testing).Testing | | | | | | performed at [facility];[address] | | | | | [address];[place], [place] | | | | | | [address] | | | | + + + + + + + + | Specimen | + + | Urine specimen | | (specimen) | + + + +---------+ + + | Performing | Address | City/State/Zipcode | Phone Number | | Organization | | | | + +---------+ + + | EXTERNAL LAB | | | | + +---------+ + + Urinalysis, Reflex Microscopic and/or Culture (09/18/2016 6:46 PM PDT) + + + + + + | Component | Value | Ref Range | Performed | Pathologist | | | | | At | Signature | + + + + + + | Color | YELLOW | | EXTERNAL | | | | | | LAB | | + + + + + + | Clarity | CLEAR | | EXTERNAL | | | | | | LAB | | + + + + + + | Specific | 1.020 | 1.002 - 1.030 | EXTERNAL | | | [place], | | | LAB | | | Urine | | | | | + + + + + + | Leukocyte | NEGATIVE | | EXTERNAL | | | [place], | | | LAB | | | Urine | | | | | + + + + + + | Nitrite, | NEGATIVE | | EXTERNAL | | | Urine | | | LAB | | + + + + + + | Urobilinoge | NORMAL | mg/dL | EXTERNAL | | | n, Urine | | | LAB | | + + + + + + | Protein, | NEGATIVE | mg/dL | EXTERNAL | | | Urine | | | LAB | | + + + + + + | pH, Urine | 6.0 | 5.0 - 8.0 | EXTERNAL | | | | | | LAB | | + + + + + + | Blood, | NEGATIVE | | EXTERNAL | | | Urine | | | LAB | | + + + + + + | Ketones | NEGATIVE | mg/dL | EXTERNAL | | | | | | LAB | | + + + + + + | Bilirubin, | NEGATIVE | | EXTERNAL | | | Urine | | | LAB | | + + + + + + | Glucose, | NEGATIVEComment: Testing | mg/dL | EXTERNAL | | | Urine | performed at [facility];[address] | | LAB | | | | [address];[place] | | | | | | [address] | | | | + + + + + + + + | Specimen | + + | | + + + +---------+ + + | Performing | Address | City/State/Zipcode | Phone Number | | Organization | | | | + +---------+ + + | EXTERNAL LAB | | | | + +---------+ + + documented in this encounter Visit Diagnoses + + | Diagnosis | + + | Recurrent seizures (HCC) Other forms of epilepsy and recurrent seizures without | | mention of intractable epilepsy | + + | History of alcohol abuse Nondependent alcohol abuse, in remission | + + documented in this encounter"
--- OUTSIDE RECORDS SUMMARY | ~2019-06-13 | XMS | Encounter Summary ---
Demographics + + + | Address | [address] | | | [place] [address] | + + + | Home Phone | | + + + | Preferred Language | Unknown | + + + | Marital Status | Single | + + + | Pentecostal Affiliation | 1073 | + + + | Race | Unknown | + + + | Ethnic Group | Unknown | + + + Author + + + | Author | [facility] | | | and [place] | + + + | Organization | [facility] | | | and [place] | + + + | Address | Unknown | + + + | Phone | Unavailable | + + + Support + + + + + | Name | Relationship | Address | Phone | + + + + + | Robby Zamora | [place] | [address] | | | | | [place] [address] | | + + + + + Care Team Providers + +------+ + | Care Electric Blasting Cap Assembler Name | Role | Phone | + +------+ + | Jann Jaramillo MD | PCP | | + +------+ + Encounter Details +--------+ + + + + | Date | Type | Department | Care Team | Description | +--------+ + + + + | 02/16/ | Episode | [facility] | Gely Edwards | | | 2018 | Changes | GASTROENTEROLOGY | BRADLEY Valerio | | | | | [address] [facility] | | | | | | [address] [place] | | | | | | [address] | | | | | | [phone] | | | +--------+ + + + [...]
--- OUTSIDE RECORDS SUMMARY | ~2019-06-13 | XMS | Encounter Summary ---
Demographics + + + | Address | [address] | | | [place] [address] | + + + | Home Phone | | + + + | Preferred Language | Unknown | + + + | Marital Status | Single | + + + | Restorationism Affiliation | 1073 | + + + | Race | Unknown | + + + | Ethnic Group | Unknown | + + + Author + + + | Author | [facility] | | | and [place] | + + + | Organization | [facility] | | | and [...] | | | | | [place] [address] | | + + + + + Care Team Providers + +------+ + | Care Senior Backup Administrator Name | Role | Phone | [...] | | | | [address] [facility] | | | | | | [address] [place] | | | | | | [address] | | | | | | [phone] | | | +--------+ + + + [...]
--- OUTSIDE RECORDS SUMMARY | ~2019-06-13 | XMS | Encounter Summary ---
Demographics + + + | Address | [address] | | | [place] [address] | + + + | Home Phone | | + + + | Preferred Language | Unknown | + + + | Marital Status | Single | + + + | Mormon Affiliation | 1073 | + + + | Race | Unknown | + + + | Ethnic Group | Unknown | + + + Author + + + | Author | [facility] | | | and [place]akanana | + + + | Organization | [facility] | | | and [...] | | | | | [place] [address] | | + + + + + Care Team Providers + +------+ + | Care Stave Log Cut Off Saw Operator Name | Role | Phone | [...] | | | | | | | [place] | | | | | | | ESOPHAGOGAST | | | | | | | RODUODENOSCO | | | | | | | PY TRANSORAL | | | | | | | DIAGNOSTIC | | | | | | | [place] EGD | | | | | | | TRANSORAL | | | | | | | BIOPSY | | | | | | | SINGLE/MULTI | | | | | | | PLE [place] | | | | | | | COLONOSCOPY | | | | | | | FLX DX | | | | | | | W/COLLJ SPEC | | | | | | | WHEN PFRMD | | | | | | | [place] | | | | | | | COLONOSCOPY | | | | | | | W/BIOPSY | | | | | | | SINGLE/MULTI | | | | | | | PLE [place] | | | | | | | COLSC FLX | | | | | | | W/RMVL OF | | | | | | | TUMOR POLYP | | | | | | | LESION SNARE | | | | | | | TQ [place] | | | | | | | [...] | | | | | [address] | [facility] [place] | | | | | [place] | [address] | | | | | [address] | [phone] | | | | | [phone] | | | +--------+ + + + [...] explained and consent obtained. Patient transported to [facility], | | | 8 | | Monitors [...]
--- OUTSIDE RECORDS SUMMARY | ~2019-06-13 | XMS | Encounter Summary ---
Demographics + + + | Address | [address] | | | [place] [address] | + + + | Home Phone | | + + + | Preferred Language | Unknown | + + + | Marital Status | Single | + + + | Anabaptism Affiliation | 1073 | + + + | Race | Unknown | + + + | Ethnic Group | Unknown | + + + Author + + + | Author | [facility] | | | and Hakanana | + + + | Organization | [facility] | | | and [place]akanana | + + + | Address | Unknown | + + + | Phone | Unavailable | + + + Support + + + + + | Name | Relationship | Address | Phone | + + + + + | Robby Zamora | SUZANNA | [address] | | | | | [place] [address] | | + + + + + Care Team Providers + +------+ + | Care Oral Surgery Assistant Name | Role | Phone | + [...] | | | | | | | [place] | | | | | | | ESOPHAGOGAST | | | | | | | RODUODENOSCO | | | | | | | PY TRANSORAL | | | | | | | DIAGNOSTIC | | | | | | | [place] EGD | | | | | | | TRANSORAL | | | | | | | BIOPSY | | | | | | | SINGLE/MULTI | | | | | | | PLE [place] | | | | | | | COLONOSCOPY | | | | | | | FLX DX | | | | | | | W/COLLJ SPEC | | | | | | | WHEN PFRMD | | | | | | | [place] | | | | | | | COLONOSCOPY | | | | | | | W/BIOPSY | | | | | | | SINGLE/MULTI | | | | | | | PLE [place] | | | | | | | COLSC FLX | | | | | | | W/RMVL OF | | | | | | | TUMOR POLYP | | | | | | | LESION SNARE | | | | | | | TQ [place] | | | | | | | [...] Description | +--------+---------+ + + + | 02/23/ | Surgery | [facility] | Tan Mcrae MD | EGD | | 2018 | | MED CTR MP INTRA OP | [address], [place] | | | | | [address] | [address] [place] | | | | | [place], [place] | [address] | | | | | [address] | | | | | | [phone] | | | +--------+---------+ + + + Social History [...] lung problems. Your ane sthesiologist or nurse journeyman patternmaker will discuss the risks with you. Date Last Reviewed: 01/09/201619991497-[address] [employer] [place] [address]. All righ ts reserved. This information is [...] | | Results for this | | AG,QUAL | e | 12:04 PM | | [...] + + | Performed at: 01 - [facility] [address], | REFERENCE LAB | | [place], [place] [id number] Utility Worker [employer]en [employer]: Romulo Reyes MD, Phone: | [facility] | | [phone] | | + + + + + + + + | Performing | Address | City/State/Zipcode | Phone Number | | Organization | | | | + + + + + | REFERENCE LAB | [address] | [place], [place] | [phone] | | [facility] | [employer] | [address] | | + + + + + Campylobacter AgQual (02/23/2017 12:04 PM PST) + + + + + + | Component | Value | Ref Range | Performed | Pathologist | | | | | At | Signature | + + + + + + | Campylobact | Negative | Negative | [facility] | | | er AG, Qual | | | [facility] | | | | | | [...] ST. | [address] | [place], [place] | [phone] | | [facility] | | [address] | | | - LABORATORY | | [...] + | [facility] | [address] | [place] | [phone] | | [facility] | | [address] | | | - LABORATORY | | [...] | | 1 | | | [facility] | | | | | | [...] [address] | [place] | [phone] | | [facility] | | [address] | | | - LABORATORY | | [...] + + | Performed at: 01 - [facility] [address], | REFERENCE LAB | | [place], [place] [id number] Utility Worker [employer]: Romulo Reyes MD, Phone: | [facility] | | [phone] | | + + + + + + + + | Performing | Address | City/State/Zipcode | Phone Number | | Organization | | | | + + + + + | REFERENCE LAB | [address] | [place], [place] | [phone] | | [facility] | Drive [facility] | [address] | | + + + + + [...] | + + + + + | [facility] | [address] | [place] | [phone] | | [facility] | | [address] | | | - LABORATORY | | [...] | is a corrected result. | | [facility] | | | G[facility] Antigen | [...] ST. | [address] | [place] | [phone] | | [facility] | | [address] | | | - LABORATORY | | [...] + + | [facility] | [address] | [place] | [phone] | | [facility] | | [address] | | | - LABORATORY | | [...] | | Antigen, | | | [facility] | | | Stool | | | [...] + | [facility] | [address] | [place] | [phone] | | [facility] | | [address] | | | - LABORATORY | | [...] | r pylori Ag | | | . [facility] | | | | | | MEDICAL [...] [address] | [place] | [phone] | | [facility] | | [address] | | | - LABORATORY | | | | + + + + + EGD (02/23/2017 11:35 AM PST) + + | Specimen | + + | | + + + + -+ | Narrative | Performed At | + + -+ | | [facility] | | GastroenterologyPatient Name: Robby Sosarocedure Date: 02/23/2017 | [facility] | | 11:35 AMMRN: [id number] #: [id number] of : | | | 1965Admit Type: AmbulatoryAge: 51Room: [facility] 01Gender: MaleNote | | | Status: FinalizedAttending MD: Tan Mcrae [facility]cedure: | | | Upper GI endoscopyIndications: Epigastric abdominal pain, | | | DiarrheaProviders: Tan Mcrae MD, Nat Larson | | | BRADLEY Lucas, Angella Wolf, Truck Packer, | | | Robbie Hadley MD (Anesthesia [...] | | | the anesthesiologist and the machine operator slitter technician in the endoscopy suite. | | [...] | | 11:47:04 AMScope Out: 11:55:40 AM [facility] | | | [facility], [address] [place] [address] | | | - Mechanical soft diet [...] |Scope Out: 11:55:40 AM | | | [facility], [address] [place] [address] | | | [address] | | + + -+ + +---------+ [...] Date: 02/23/2017 | [facility] | | 11:34 AMN: [id number] #: [id number] of : | | | 1965Admit Type: AmbulatoryAge: 51Room: [facility] 01Gender: MaleNote | | | Status: FinalizedAttending MD: Tan Mcrae , [facility]rocedure: | | | ColonoscopyIndications: Clinically significant diarrhea of | | | unexplained originProviders: Tan Mcrae MD, Nat | | | Neo Lucas RN, Angella Wolf, | | | Truck Packer, Robbie Hadley MD (Anesthesia | | | [...] | | 12:01:31 PMScope Out: 12:23:04 PM [facility] | | | [facility], [address] [place] [address] | | | - Continue present medications. [...] |Scope Out: 12:23:04 PM | | | [facility], [facility] [address], [place] | | | [address] | | + + -+ + +---------+ [...] no | | | significant diagnostic abnormality. CLR:[facility]:C2NR GROSS | | | DESCRIPTION: Received in five parts. A. The specimen is labeled | | | "[place], Robby" and designated "duodenal bx" on the requisition. | | | Received in formalin are five pink-griffin colored tissue fragments, | | | 0.2-0.5 cm, all into (A1). B. The specimen is labeled "[place], | | | Robby" and designated "distal esophageal bx" on the requisition. | | | Received in formalin are eight cream to griffin colored tissue fragments, | | | 0.15-0.5 cm, all into (B1). C. The specimen is labeled "[place], | | | Robby" and designated "transverse colon polyps" on the requisition. | | | Received in formalin are two pink-griffin colored tissue fragments, | | | 0.4-0.45 cm, all into (C1). D. The specimen is labeled "[place], | | | Robby" and designated "random right colon bx" on the requisition. | | | Received in formalin are five griffin colored tissue fragments, 0.25-0.6 | | | cm, all into (D1). E. The specimen is labeled "[place], Robby" | | | and designated "random left colon bx" on the requisition. Received in | | | formalin are eight griffin colored tissue fragments, 0.15-0.45 cm, all | | | into (E1). yt:GILA:[facility] PERFORMING LABORATORY: Tissue processing | | | and slide preparation were performed by [facility], [address] | | [facility] [address], [place] [address] ([employer] Customer Service: Pk | | | Anne Sapp CLIA#: [id number]). Professional interpretation was | | | performed by [facility], [address] [place] [address], [address], [facility] | | | [place] [address] ([employer] Customer Service: Pk Sapp M.D.; [place]#: | | | [id number]). Diagnostician: Melo Shelley MD | | | Pathologist Electronically Signed 02/24/2017 | | + + + + +---------+ + + | Performing | Address | City/State/[facility] Corporationcode | Phone Number | | Organization | | | | + +---------+ + + | [place] [facility] | | | | | [facility] | | | | + +---------+ + + documented in this encounter Visit Diagnoses Not on filedocumented in this encounter Administered Medications + +--------+---------+------+------+------+ [...]
--- OUTSIDE RECORDS SUMMARY | ~2019-06-13 | XMS | Encounter Summary ---
Demographics + + + | Address | [address] | | | [place] [address] | + + + | Home Phone | | + + + | Preferred Language | Unknown | + + + | Marital Status | Single | + + + | Baptist Affiliation | 1073 | + + + | Race | Unknown | + + + | Ethnic Group | Unknown | + + + Author + + + | Author | [facility] | | | and [place]akanana | + + + | Organization | [facility] | | | and [place] | + + + | Address | Unknown | + + + | Phone | Unavailable | + + + Support + + + + + | Name | Relationship | Address | Phone | + + + + + | Robby Zamora | SUZANNA | [address] | | | | | [place] [address] | | + + + + + Care Team Providers + +------+ + | Care Tube Blower Name | Role | Phone | + +------+ + PCP | Unavailable | + +------+ + Encounter Details +--------+ + + + + | Date | Type | Department | Care Team | Description | +--------+ + + + + | 08/28/ | Hospital | [facility] | Conversion | | | 2013 | Encounter | [facility] [address] | Transaction, | | | | | [address] | Provider Unknown | | | | | [place] | | | | | | [address] | (Fax) | | | | | [phone] | | | +--------+ + + + [...]
--- OUTSIDE RECORDS SUMMARY | ~2019-06-13 | XMS | Encounter Summary ---
Demographics + + + | Address | [address] | | | [place] [address] | + + + | Home Phone | | + + + | Preferred Language | Unknown | + + + | Marital Status | Single | + + + | Restorationist Affiliation | 1073 | + + + | Race | Unknown | + + + | Ethnic Group | Unknown | + + + Author + + + | Author | [facility] | | | and Hakanana | + + + | Organization | [facility] | | | and [...] | | | | | [place] [address] | | + + + + + Care Team Providers + +------+ + | Care Project Facilitator Name | Role | Phone | + [...] 2017 | | GASTROENTEROLOGY | [address], [place] | | | | | [address] [place] | [address] [place], [place] | | | | | [address] [place], [place] | [address] | | | | | [address] | | | | | | [phone] | | | +--------+--------+ + + + [...]
--- OUTSIDE RECORDS SUMMARY | ~2019-06-13 | XMS | Encounter Summary ---
Demographics + + + | Address | [address] | | | [place] [address] | + + + | Home Phone | | + + + | Preferred Language | Unknown | + + + | Marital Status | Single | + + + | Quaker Affiliation | 1073 | + + + | Race | Unknown | + + + | Ethnic Group | Unknown | + + + Author + + + | Author | [facility] | | | and [place]akanana | + + + | Organization | [facility] | | | and [place]akan[place] | + + + | Address | Unknown | + + + | Phone | Unavailable | + + + Support + + + + + | Name | Relationship | Address | Phone | + + + + + | Robby Zamora | SUZANNA | [address] | | | | | [place] [address] | | + + + + + Care Team Providers + +------+ + | Care Bellstand Attendant Name | Role | Phone | + +------+ + PCP | Unavailable | + +------+ + Encounter Details +--------+ + + + + | Date | Type | Department | Care Team | Description | +--------+ + + + + | 09/18/ | Emergency | [facility] | Zev Martinez, | Recurrent seizures | | 2017 | | MEDICAL CENTER | MD Baldo Lezama | ([facility]); History of | | | | EMERGENCY CENTER | [place] [address] | alcohol abuse | | | | [address] | [phone] | | | | | [place], [place] | | | | | | [address] | | | | | | [phone] | | | +--------+ + + + [...] | | | Basophils | performed at [facility];[address] | LAB | | | [address];[place], [place] | | | | | | [address] | | | | + + + [...] | | | | | | at [facility];[address] [place] [address] | | | | | | Blvd;[place] [address] | | | | + + + [...] | | | | | performed at [facility];[address] | | | | | | [address];[place], [place] | | | | | | [address] | | | | + + + [...] - 1.030 | EXTERNAL | | | [place], | | | LAB | | | [...] | | | Urine | performed at [facility];[address] | | LAB | | | | [address] [place] | | | | | | [address] | | | | + + + [...]
--- OUTSIDE RECORDS SUMMARY | ~2019-06-13 | XMS | Encounter Summary ---
Demographics + + + | Address | [address] | | | [place] [address] | + + + | Home Phone | | + + + | Preferred Language | Unknown | + + + | Marital Status | Single | + + + | Quaker Affiliation | 1073 | + + + | Race | Unknown | + + + | Ethnic Group | Unknown | + + + Author + + + | Author | [facility] | | | and Hakanana | + + + | Organization | [facility] | | | and [...] | | | | | [place] [address] | | + + + + + Care Team Providers + +------+ + | Care C2 Tactical Analysis Technician Name | Role | Phone | [...] | | chronic | [address] | MD Aden HENNING | | | | | pancreatitis | Antonio Alfonso | [facility] | | | | | ([facility]) | [place], | [place], [place] | | | | | | [place] [address] | [address] Phone: | | | | | | Phone: | [phone] | | | | | | [phone] | Fax: | | | | | | Fax: | [phone] | | | | | | [phone] | | + +--------+ + + + + Encounter Details +--------+---------+ + + + | Date | Type | Department | Care Team | Description | +--------+---------+ + + + | 05/02/ | Office | [facility] | Rohith Montano | Alcohol-induced | | 2019 | Visit | GASTROENTEROLOGY | MD L[address] | acute pancreatitis | | | | [address] | BLVD [place], [place] | without infection or | | | | [place] | [address] | necrosis (Primary | | | | [address] | | Dx); 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 male. HPI Patient with history of alcohol abuse with prior episodes of alcohol induced pancreatitis p resents for new patient evaluation due to persisting abdominal pain after most recent episod e of acute alcoholic pancreatitis. His most recent hospitalization at [facility] was the beginning of this month though [...] pain. Typically in the past he has gilberto crawford able to stop eating, be given IV [...] had pain persist this long. He has gilberto crawford offered repeat hospitalization in his local area [...] mg by mouth 2 times daily. CREON [id number] units per capsule Take 1 capsule by [...] Procedure: COLONOSCOPY; Surgeon: Tan Mcrae MD; Location: [facility] MEDICAL PROCEDURE UNIT COLONOSCOPY 10/02/2015 HAND TENDON SURGERY Right KIDNEY STONE SURGERY UPPER GASTROINTESTINAL ENDOSCOPY N/A 02/23/2017 Procedure: EGD; Surgeon: Tan Mcrae MD; Location: [facility] MEDICAL PROCEDURE UNIT UPPER GASTROINTESTINAL ENDOSCOPY [...] file Gets together: Not on file Attends buddhist service: Not on file Active member of [...] urinary bladder is poorly evaluated. No ac lovelock abnormality identified. BONES AND SOFT TISSUES: Fat-containing [...] an extremely painful process and I did career and guidance counselor the patient that with continued drinking [...] which is fine. Thai Montano IV, M.D. [facility] Gastroenterology 05/03/2019 This note was dictated using [employer] voice recognition software. Document was reviewed at ti me of dictation but [id number]-t-lgal errors may be present. Please call with any questions or c larifications. TIME: New patient - total direct [id number] time of 45 minutes spent in reviewing [...]
--- OUTSIDE RECORDS SUMMARY | ~2019-06-13 | XMS | Encounter Summary ---
Demographics + + + | Address | [address] | | | [place] [address] | + + + | Home Phone | | + + + | Preferred Language | Unknown | + + + | Marital Status | Single | + + + | Jew Affiliation | 1073 | + + + | Race | Unknown | + + + | Ethnic Group | Unknown | + + + Author + + + | Author | [facility] | | | and [place]akanana | + + + | Organization | [facility] | | | and [...] | | | | | [place] [address] | | + + + + + Care Team Providers + +------+ + | Care Research Clerk Name | Role | Phone | [...] [place] | | | | | | [address] | | | | | | [phone] | | | +--------+ + + + [...]
--- OUTSIDE RECORDS SUMMARY | ~2019-06-13 | XMS | Encounter Summary ---
Demographics + + + | Address | [address] | | | [place] [address] | + + + | Home Phone | | + + + | Preferred Language | Unknown | + + + | Marital Status | Single | + + + | Evangelical Affiliation | 1073 | + + + | Race | Unknown | + + + | Ethnic Group | Unknown | + + + Author + + + | Author | [facility] | | | and [place]akan[place] | + + + | Organization | [facility] | | | and [...] | | | | | [place] [address] | | + + + + + Care Team Providers + +------+ + | Care Marine Insulator Name | Role | Phone | + +------+ + PCP | Unavailable | + +------+ + Encounter Details +--------+ + + + + | Date | Type | Department | Care Team | Description | +--------+ + + + + | 09/18/ | Hospital | [facility] GENERIC IP | Conversion | Pain | | 2017 | Encounter | CONVERSION [address] | Transaction, | | | | | [address] | Provider Unknown | | | | | [place] | [phone] | | | | | [address] | | | | | | [phone] | | | +--------+ + + + [...] | + +--------+ + + + | CT HEAD WO CONTRAST | Routin | 08/27/2016 | | Results for this | | | e | 11:11 PM | | procedure are in the | | | | PDT | | results section. | + +--------+ + + + documented in this encounter Results CT Head wo Contrast (08/27/2016 11:11 PM PDT) + [...]
--- OUTSIDE RECORDS SUMMARY | ~2019-06-13 | XMS | Encounter Summary ---
Demographics + + + | Address | [address] | | | [place] [address] | + + + | Home Phone | | + + + | Preferred Language | Unknown | + + + | Marital Status | Single | + + + | Sikh Affiliation | 1073 | + + + | Race | Unknown | + + + | Ethnic Group | Unknown | + + + Author + + + | Author | [facility] | | | and [place]akan[place] | + + + | Organization | [facility] | | | and [...] | | | | | [place] [address] | | + + + + + Care Team Providers + +------+ + | Care Tire Design Engineer Name | Role | Phone | + [...] | | | | [address] [facility] | | | | | | [address] [place] | | | | | | [address] | | | | | | [phone] | | | +--------+ + + + [...]
--- OUTSIDE RECORDS SUMMARY | ~2019-06-13 | XMS | Encounter Summary ---
Demographics + + + | Address | [address] | | | [place] [address] | + + + | Home Phone | | + + + | Preferred Language | Unknown | + + + | Marital Status | Single | + + + | Christian Affiliation | 1073 | + + + | Race | Unknown | + + + | Ethnic Group | Unknown | + + + Author + + + | Author | [facility] | | | and [place]akanana | + + + | Organization | [facility] | | | and [place] | + + + | Address | Unknown | + + + | Phone | Unavailable | + + + Support + + + + + | Name | Relationship | Address | Phone | + + + + + | Robby Zamora | SUZANNA | [address] | | | | | [place] [address] | | + + + + + Care Team Providers + +------+ + | Care Gas Plant Technician Name | Role | Phone | [...] 2018 | | GASTROENTEROLOGY | [address], [address] | (egd,colon) | | | | [address] [place] | [address] [place], [place] | | | | | [address] [place], [place] | [address] | | | | | [address] | | | | | | [phone] | | | +--------+ + + + [...]
--- OUTSIDE RECORDS SUMMARY | ~2019-06-13 | XMS | Clinical Summary ---
Demographics + + + | Address | [address] | | | [place] [address] | + + + | Home Phone | | + + + | Preferred Language | Unknown | + + + | Marital Status | Single | + + + | Yazdanism Affiliation | 1073 | + + + | Race | Unknown | + + + | Ethnic Group | Unknown | + + + Author + + + | Author | [facility] | | | and [place] | + + + | Organization | Loc[facility] | | | and [...] | | | | | [place] [address] | | + + + + + Care Team Providers + +------+ + | Care Employee Health Rn Name | Role | Phone | + [...] | + + + +---------+------+------+-------+ | CREON [id number] | Take 1 capsule by | | [...] | [employer] | MODA | [id number] | 01/20/ | [phone] | | Medica | | MEDICAID HMO | HEALTH | | 2016-P | 1 | | id | | | MDCD | | resent | | | | | | [place] | | | | | | + +--------+ +--------+ +---------+--------+ | [employer] | MODA | [id number] | | [phone] | | Medica | | MEDICAID HMO [...] | | al/Fam | | 1966 | [phone] | [place] [address] | | | [place] | | | 0 (Home) | | + +--------+ +--------+ + + | Robby Zamora | Person | Self | [birth year] | [address] [place], | | | al/Fam | | 1966 | [phone] | [place] [address] | | | [place] | | | 0 (Home) | | + +--------+ +--------+ + + Advance Directives + + + + + | Type | Date Recorded | Patient | Explanation | | | | Civil Division Deputy Sheriff | | + + + + + | Power of | | | | | Tare Weigher | | | | + + + + + | Advance | 02/23/2017 10:03 | | | | Directive | AM | | | + + + + +
--- OUTSIDE RECORDS SUMMARY | ~2019-06-13 | XMS | Encounter Summary ---
Demographics + + + | Address | [address] | | | [place] [address] | + + + | Home Phone | | + + + | Preferred Language | Unknown | + + + | Marital Status | Single | + + + | Mu-Ism Affiliation | 1073 | + + + | Race | Unknown | + + + | Ethnic Group | Unknown | + + + Author + + + | Author | [facility] | | | and [place]akan[place] | + + + | Organization | [facility] | | | and [place] | + + + | Address | Unknown | + + + | Phone | Unavailable | + + + Support + + + + + | Name | Relationship | Address | Phone | + + + + + | Robby Zamora | SUZANNA | [address] | | | | | [place] [address] | | + + + + + Care Team Providers + +------+ + | Care Internal Controls Analyst Name | Role | Phone | + +------+ + PCP | Unavailable | + +------+ + Encounter Details +--------+ + + + + | Date | Type | Department | Care Team | Description | +--------+ + + + + | 09/18/ | Hospital | [facility] GENER[facility] IP | Conversion | Pain | | 2017 | Encounter | CONVERSION DEP 888 | Transaction, | | | | | [address] | Provider Unknown | | | | | [place] | [phone] | | | | | [address] | | | | | | [phone] | | | +--------+ + + + [...]
--- OUTSIDE RECORDS SUMMARY | ~2019-06-13 | XMS | Encounter Summary ---
Demographics + + + | Address | [address] | | | [place] [address] | + + + | Home Phone | | + + + | Preferred Language | Unknown | + + + | Marital Status | Single | + + + | Confucianist Affiliation | 1073 | + + + | Race | Unknown | + + + | Ethnic Group | Unknown | + + + Author + + + | Author | [facility] | | | and [place]akan[place] | + + + | Organization | [facility] | | | and [...] | | | | | [place] [address] | | + + + + + Care Team Providers + +------+ + | Care Finance Analyst Name | Role | Phone | [...] | | | | [address] [facility] [facility] | | | | | | [address] [place] | | | | | | [address] | | | | | | [phone] | | | +--------+ + + + [...]
--- OUTSIDE RECORDS SUMMARY | ~2019-06-13 | XMS | Encounter Summary ---
Demographics + + + | Address | [address] | | | [place] [address] | + + + | Home Phone | | + + + | Preferred Language | Unknown | + + + | Marital Status | Single | + + + | Oriental Orthodox Affiliation | 1073 | + + + | Race | Unknown | + + + | Ethnic Group | Unknown | + + + Author + + + | Author | [facility] | | | and [place]akan[place] | + + + | Organization | [facility] | | | and [...] | | | | | [place] [address] | | + + + + + Care Team Providers + +------+ + | Care Board Setter Name | Role | Phone | + +------+ + PCP | Unavailable | + +------+ + Encounter Details +--------+ + + + + | Date | Type | Department | Care Team | Description | +--------+ + + + + | 09/18/ | Hospital | [facility] GENER[facility] IP | Conversion | Pain | | 2017 | Encounter | CONVERSION DEP 888 | Transaction, | | | | | [address] | Provider Unknown | | | | | [place] | [phone] | | | | | [address] | | | | | | [phone] | | | +--------+ + + + [...]
--- OUTSIDE RECORDS SUMMARY | ~2019-06-13 | XMS | Encounter Summary ---
Demographics + + + | Address | [address] | | | [place] [address] | + + + | Home Phone | | + + + | Preferred Language | Unknown | + + + | Marital Status | Single | + + + | Anabaptism Affiliation | 1073 | + + + | Race | Unknown | + + + | Ethnic Group | Unknown | + + + Author + + + | Author | [facility] | | | and [place]akan[place] | + + + | Organization | [facility] | | | and [place] | + + + | Address | Unknown | + + + | Phone | Unavailable | + + + Support + + + + + | Name | Relationship | Address | Phone | + + + + + | Robby Zamora | SUZANNA | [address] | | | | | [place] [address] | | + + + + + Care Team Providers + +------+ + | Care Granite Cutter Name | Role | Phone | + +------+ + PCP | Unavailable | + +------+ + Encounter Details +--------+ + + + + | Date | Type | Department | Care Team | Description | +--------+ + + + + | 08/28/ | Hospital | [facility] | Tino Neff, | | | 2007 | Encounter | MEDICINE [address] | [address] | | | | [place], [place] | [facility] [address] | | | | | [address] | [place] [address] | | | | | [phone] | [phone] | | | | | | | [...]
--- OUTSIDE RECORDS SUMMARY | ~2019-06-13 | XMS | Encounter Summary ---
Demographics + + + | Address | [address] | | | [place] [address] | + + + | Home Phone | | + + + | Preferred Language | Unknown | + + + | Marital Status | Single | + + + | Baptism Affiliation | 1073 | + + + | Race | Unknown | + + + | Ethnic Group | Unknown | + + + Author + + + | Author | [facility] | | | and [place]akan[place] | + + + | Organization | [facility] | [...] | | | | | [place] [address] | | + + + + + Care Team Providers + +------+ + | Care Industrial Sales Manager Name | Role | Phone | + [...] | | | | | | | MA | | | | | | | ESOPHAGOGAST | | | | | | | RODUODENOSCO | | | | | | | PY TRANSORAL | | | | | | | DIAGNOSTIC | | | | | | | MA EGD | | | | | | | TRANSORAL | | | | | | | BIOPSY | | | | | | | SINGLE/MULTI | | | | | | | PLE MA | | | | | | | COLONOSCOPY | | | | | | | FLX DX | | | | | | | W/COLLJ SPEC | | | | | | | WHEN PFRMD | | | | | | | MA | | | | | | | COLONOSCOPY | | | | | | | W/BIOPSY | | | | | | | SINGLE/MULTI | | | | | | | PLE MA | | | | | | | COLSC FLX | | | | | | | W/RMVL OF | | | | | | | TUMOR POLYP | | | | | | | LESION SNARE | | | | | | | TQ MA | | | | | | | [...] CTR MP INTRA OP | [address], [place] | (Primary Dx); | | | | [address] | [address] [place], [place] | Epigastric pain | | | | [place], [place] | [address] | | | | | [address] | | | | | | [phone] | | | +--------+ + + + [...] lung problems. Your ane sthesiologist or nurse delinquent account clerk will discuss the risks with you. Date Last Reviewed: 01/09/201619991748-7410 [employer]. [address] [place] [address], [place] [address]. All righ ts reserved. This information is [...] (HCC) | | | | | | (G40.902), alcohol | | | | | | [...] + | Performed at: 01 - [facility] [address], | REFERENCE LAB | | [place], [place] [id number] Real Estate Intern: Romulo Reyes MD, Phone: | [facility] | | [phone] | | + + + + + + + + | Performing | Address | City/State/Zipcode | Phone Number | | Organization | | | | + + + + + | REFERENCE LAB | [address] | [place], [place] | [phone] | | [facility] | [address] | [address] | | + + + + + [...] ST. | [address] | [place] | [phone] | | [facility] | | [address] | | | - LABORATORY | | [...] [address] | [place] | [phone] | | [facility] | | [address] | | | - LABORATORY | | [...] + | [address] | [address] | [place] | [phone] | | [facility] | | [address] | | | - LABORATORY | | [...] + | Performed at: 01 - [facility] [place] [address], | REFERENCE LAB | | [place], [place] [id number] Real Estate Intern: Romulo Reyes MD, Phone: | [facility] | | [phone] | | + + + + + + + + | Performing | Address | City/State/Zipcode | Phone Number | | Organization | | | | + + + + + | REFERENCE LAB | [address] | [place], [place] | [phone] | | [facility] | [address] | [address] | | + + + + + [...] [address] | [place] | [phone] | | [facility] | | [address] | | | - LABORATORY | | [...] ST. | [address] | [place] | [phone] | | [facility] | | [address] | | | - LABORATORY | | [...] [address] | [place] | [phone] | | [facility] | | [address] | | | - LABORATORY | | [...] [address] | [place] | [phone] | | [facility] | | [address] | | | - LABORATORY | | [...] [address] | [place] | [phone] | | [facility] | | [address] | | | - LABORATORY | | | | + + + + + EGD (02/23/2017 11:35 AM PST) + + | Specimen | + + | | + + + + -+ | Narrative | Performed At | + + -+ | | [facility] | | GastroenterologyPatient Name: Robby Vieyraednoemi Date: 02/23/2017 | [facility] | | 11:35 AMMRN: [id number] #: [id number] of : | | | 1965Admit Type: AmbulatoryAge: 51Room: [facility] 01Gender: MaleNote | | | Status: FinalizedAttending MD: Tan Mcrae , [facility]rocedure: | | | Upper GI endoscopyIndications: Epigastric abdominal pain, | | | DiarrheaProviders: Tan Mcrae MD, Nat Larson | | | BRADLEY Lucas, Angella Wolf, Cyanide Pot Hardener, | | | Robbie Hadley MD (Anesthesia [...] | | | the anesthesiologist and the extracorporeal technician in the endoscopy suite. | | [...] | | 11:47:04 AMScope Out: 11:55:40 AM [facility] | | | [place], [address] [place] [address] | | | - Mechanical soft diet [...] |Scope Out: 11:55:40 AM | | | [facility], [address] [place], [place] [address] , [place], [place] | | | [address] | | + + -+ + +---------+ [...] 02/23/2017 | [facility] | | 11:34 AMMRN: [id number] #: [id number] of : | | | 1965Admit Type: AmbulatoryAge: 51Room: [facility] 01Gender: MaleNote | | | Status: FinalizedAttending MD: Tan Mcrae , [facility]rocedure: | | | ColonoscopyIndications: Clinically significant diarrhea of | | | unexplained originProviders: Tan Mcrae MD, Nat | | | Neo Lucas RN, Angella Wolf, | | | Cyanide Pot Hardener, Robbie Hadley MD (Anesthesia | | | [...] | | 12:01:31 PMScope Out: 12:23:04 PM [facility] | | | [place], [address] [place] [address] | | | - Continue present medications. [...] |Scope Out: 12:23:04 PM | | | [facility], [address] [place], [place] | | | [address] | | + + -+ + +---------+ [...] no | | | significant diagnostic abnormality. CLR:[facility]:C2NR GROSS | | | DESCRIPTION: Received in five parts. A. The specimen is labeled | | | "[place], Robby" and designated "duodenal bx" on the requisition. | | | Received in formalin are five pink-griffin colored tissue fragments, | | | 0.2-0.5 cm, all into (A1). B. The specimen is labeled "[place], | | | Robby" and designated "distal esophageal bx" on the requisition. | | | Received in formalin are eight cream to griffin colored tissue fragments, | | | 0.15-0.5 cm, all into (B1). C. The specimen is labeled "[place], | | | Robby" and designated "transverse colon polyps" on the requisition. | | | Received in formalin are two pink-griffin colored tissue fragments, | | | 0.4-0.45 cm, all into (C1). D. The specimen is labeled "[place], | | | Robby" and designated "random right colon bx" on the requisition. | | | Received in formalin are five griffin colored tissue fragments, 0.25-0.6 | | | cm, all into (D1). E. The specimen is labeled "[place], Robby" | | | and designated "random left colon bx" on the requisition. Received in | | | formalin are eight griffin colored tissue fragments, 0.15-0.45 cm, all | | | into (E1). yt:GILA:[facility] PERFORMING LABORATORY: Tissue processing | | | and slide preparation were performed by [facility], [address] | [address], [place] [address] (Radiator Core Tester: Pk | | Adeline Sapp M.D. CLIA#: [id number]). Professional interpretation was | | | performed by [facility], [address] [facility], [address], [facility] | | | [place] [address] (Radiator Core Tester: Pk Sapp M.D.; CLIA#: | | | [id number]). Diagnostician: Melo Shelley MD | | | Pathologist Electronically Signed 02/24/2017 | | + + + + +---------+ + + | Performing | Address | City/State/[facility] Centercode | Phone Number | | Organization [...]
--- OUTSIDE RECORDS SUMMARY | ~2019-06-13 | XMS | Encounter Summary ---
Demographics + + + | Address | [address] | | | [place] [address] | + + + | Home Phone | | + + + | Preferred Language | Unknown | + + + | Marital Status | Single | + + + | Yazidi Affiliation | 1073 | + + + | Race | Unknown | + + + | Ethnic Group | Unknown | + + + Author + + + | Author | [facility] | | | and [place]akan[place] | + + + | Organization | [facility] | | | and [...] | | | | | [place] [address] | | + + + + + Care Team Providers + +------+ + | Care Criminal Justice Instructor Name | Role | Phone | + +------+ + PCP | Unavailable | + +------+ + Encounter Details +--------+ + + + + | Date | Type | Department | Care Team | Description | +--------+ + + + + | 08/28/ | Hospital | [facility] | Conversion | | | 2013 | Encounter | [facility] [address] | Transaction, | | | | | [address] | Provider Unknown | | | | | [place] | | | | | | [address] | (Fax) | | | | | [phone] | | | +--------+ + + + [...]
--- OUTSIDE RECORDS SUMMARY | ~2019-06-13 | XMS | Encounter Summary ---
Demographics + + + | Address | [address] | | | [place] [address] | + + + | Home Phone | | + + + | Preferred Language | Unknown | + + + | Marital Status | Single | + + + | Islam Affiliation | 1073 | + + + | Race | Unknown | + + + | Ethnic Group | Unknown | + + + Author + + + | Author | [facility] | | | and [place]akan[place] | + + + | Organization | [facility] | | | and [place] | + + + | Address | Unknown | + + + | Phone | Unavailable | + + + Support + + + + + | Name | Relationship | Address | Phone | + + + + + | Robby Zamora | SUZANNA | [address] | | | | | [place] [address] | | + + + + + Care Team Providers + +------+ + | Care Livestock Dealer Name | Role | Phone | + [...] | | | | | | | IN | | | | | | | ESOPHAGOGAST | | | | | | | RODUODENOSCO | | | | | | | PY TRANSORAL | | | | | | | DIAGNOSTIC | | | | | | | IN EGD | | | | | | | TRANSORAL | | | | | | | BIOPSY | | | | | | | SINGLE/MULTI | | | | | | | PLE IN | | | | | | | COLONOSCOPY | | | | | | | FLX DX | | | | | | | W/COLLJ SPEC | | | | | | | WHEN PFRMD | | | | | | | IN | | | | | | | COLONOSCOPY | | | | | | | W/BIOPSY | | | | | | | SINGLE/MULTI | | | | | | | PLE IN | | | | | | | COLSC FLX | | | | | | | W/RMVL OF | | | | | | | TUMOR POLYP | | | | | | | LESION SNARE | | | | | | | TQ IN | | | | | | | [...] + + | 02/23/ | Surgery | [facility] | Tan Mcrae MD | EGD | | 2018 | | MED CTR MP INTRA OP | [address], [place] | | | | | [address] | [address] [place] | | | | | [place], [place] | [address] | | | | | [address] | | | | | | [phone] | | | +--------+---------+ + + + [...] lung problems. Your ane sthesiologist or nurse building insulation supervisor will discuss the risks with you. Date Last Reviewed: 01/09/201619999654-[address] [employer] [place] [address]. All righ ts reserved. This information is [...] + + | Performed at: 01 - [facility] [address], | REFERENCE LAB | | [place], [place] [id number] Stock Sorter: Romulo Reyes MD, Phone: | [facility] | | [phone] | | + + + + + + + + | Performing | Address | City/State/Zipcode | Phone Number | | Organization | | | | + + + + + | REFERENCE LAB | [address] | [place], [place] | [phone] | | [facility] | [place] | [address] | | + + + + + [...] ST. | [address] | [place], [place] | [phone] | | [facility] | | [address] | | | - LABORATORY | | [...] [address] | [place] | [phone] | | [facility] | | [address] | | | - LABORATORY | | [...] [address] | [place] | [phone] | | [facility] | | [address] | | | - LABORATORY | | [...] + + | Performed at: 01 - [facility] [address], | REFERENCE LAB | | [place], [place] [id number] Stock Sorter: Romulo Reyes MD, Phone: | [facility] | | [phone] | | + + + + + + + + | Performing | Address | City/State/Zipcode | Phone Number | | Organization | | | | + + + + + | REFERENCE LAB | [address] | [place], [place] | [phone] | | [facility] | [address] [facility] | [address] | | + + + + + [...] [address] | [place] | [phone] | | [facility] | | [address] | | | - LABORATORY | | [...] [address] | [place] | [phone] | | [facility] | | [address] | | | - LABORATORY | | [...] [address] | [place] | [phone] | | [facility] | | [address] | | | - LABORATORY | | [...] | | Antigen, | | | [address] | | | Stool | | | [...] [address] | [place] | [phone] | | [facility] | | [address] | | | - LABORATORY | | [...] r pylori Ag | | | . [facility] | | | | | | MEDICAL [...] [address] | [place] | [phone] | | [facility] | | [address] | | | - LABORATORY | | | | + + + + + EGD (02/23/2017 11:35 AM PST) + + | Specimen | + + | | + + + + -+ | Narrative | Performed At | + + -+ | | [facility] | | GastroenterologyPatient Name: Robby Sosarocedure Date: 02/23/2017 | [facility] | | 11:35 AMMRN: [id number] #: [id number] of : | | | 1965Admit Type: AmbulatoryAge: 51Room: [facility] 01Gender: MaleNote | | | Status: FinalizedAttending MD: Tan Mcrae [facility] | | | Upper GI endoscopyIndications: Epigastric abdominal pain, | | | DiarrheaProviders: Tna Mcrae MD, Nat Larson | | | BRADLEY Lucas, Angella Wolf, Anger Control Counselor, | | | Robbie Hadley MD (Anesthesia [...] | | | the anesthesiologist and the bmw service technician in the endoscopy suite. | | [...] | | 11:47:04 AMScope Out: 11:55:40 AM [facility] | | | [place], [address] [place] [address] | | | - Mechanical soft diet [...] AM | | | [facility], [address] [place] [address] | | | [address] | | + + -+ + +---------+ [...] 02/23/2017 | [facility] | | 11:34 AMN: [id number] #: [id number] of : | | | 1965Admit Type: AmbulatoryAge: 51Room: [facility] 01Gender: MaleNote | | | Status: FinalizedAttending MD: Tan Mcrae , [facility]: | | | ColonoscopyIndications: Clinically significant diarrhea of | | | unexplained originProviders: Tan Mcrae MD, Nat | | | Neo Lucas RN, Angella Wolf, | | | Anger Control Counselor, Robbie Hadley MD (Anesthesia | | | [...] | | 12:01:31 PMScope Out: 12:23:04 PM [facility] | | | [place], [address] [place] [address] | | | - Continue present medications. [...] PM | | | [facility], [facility] [address] [place], [place] | | | [address] | | + + -+ + +---------+ [...] no | | | significant diagnostic abnormality. [facility]:C2NR GROSS | | | DESCRIPTION: Received in five parts. A. The specimen is labeled | | | "[place], Robby" and designated "duodenal bx" on the requisition. | | | Received in formalin are five pink-griffin colored tissue fragments, | | | 0.2-0.5 cm, all into (A1). B. The specimen is labeled "[place], | | | Robby" and designated "distal esophageal bx" on the requisition. | | | Received in formalin are eight cream to griffin colored tissue fragments, | | | 0.15-0.5 cm, all into (B1). C. The specimen is labeled "[place], | | | Robby" and designated "transverse colon polyps" on the requisition. | | | Received in formalin are two pink-griffin colored tissue fragments, | | | 0.4-0.45 cm, all into (C1). D. The specimen is labeled "[place], | | | Robby" and designated "random right colon bx" on the requisition. | | | Received in formalin are five griffin colored tissue fragments, 0.25-0.6 | | | cm, all into (D1). E. The specimen is labeled "[place], Robby" | | | and designated "random left colon bx" on the requisition. Received in | | | formalin are eight griffin colored tissue fragments, 0.15-0.45 cm, all | | | into (E1). yt:GILA:[facility] PERFORMING LABORATORY: Tissue processing | | | and slide preparation were performed by [facility], [address] | | | [facility] [address], [place] [address] (Travel Services Professional: Pk | | | Anne Sapp CLIA#: [id number]). Professional interpretation was | | | performed by [facility], [address] [place] [address], [address], [facility] | | | [place] [address] (Travel Services Professional: Pk Sapp M.D.; [place]#: | | | [id number]). Diagnostician: Melo Shelley MD | | | Pathologist Electronically Signed 02/24/2017 | | + + + + +---------+ + + | Performing | Address | City/State/[facility] Centercode | Phone Number | | [...]
--- OUTSIDE RECORDS SUMMARY | ~2019-06-13 | XMS | Encounter Summary ---
Demographics + + + | Address | [address] | | | [place] [address] | + + + | Home Phone | | + + + | Preferred Language | Unknown | + + + | Marital Status | Single | + + + | Quaker Affiliation | 1073 | + + + | Race | Unknown | + + + | Ethnic Group | Unknown | + + + Author + + + | Author | [facility] | | | and [place]akan[place] | + + + | Organization | [facility] | | [...] | | | | | [place] [address] | | + + + + + Care Team Providers + +------+ + | Care Insurance Operations Rep Name | Role | Phone | + [...] [place] | | | | | | [address] | | | | | | [phone] | | | +--------+ + + + [...]
--- OUTSIDE RECORDS SUMMARY | ~2019-06-13 | XMS | Encounter Summary ---
Demographics + + + | Address | [address] | | | [place] [address] | + + + | Home Phone | | + + + | Preferred Language | Unknown | + + + | Marital Status | Single | + + + | Latter Day Affiliation | 1073 | + + + | Race | Unknown | + + + | Ethnic Group | Unknown | + + + Author + + + | Author | [facility] | | | and [place] | + + + | Organization | [facility] [...] | | | | | [place] [address] | | + + + + + Care Team Providers + +------+ + | Care Frame Hand Name | Role | Phone | + [...] | | | | [address] [facility] | | | | | | [address] [place] | | | | | | [address] | | | | | | [phone] | | | +--------+ + + + [...]
--- OUTSIDE RECORDS SUMMARY | ~2019-06-13 | XMS | Encounter Summary ---
Demographics + + + | Address | [address] | | | [place] [address] | + + + | Home Phone | | + + + | Preferred Language | Unknown | + + + | Marital Status | Single | + + + | Pentecostal Affiliation | 1073 | + + + | Race | Unknown | + + + | Ethnic Group | Unknown | + + + Author + + + | Author | [facility] | | | and [place] | + + + | Organization | [facility] | | | and [...] | | | | | [place] [address] | | + + + + + Care Team Providers + +------+ + | Care Applications Engineer Manufacturing Name | Role | Phone | + +------+ + | Jann Jraamillo MD | PCP | | + +------+ [...] 2018 | | GASTROENTEROLOGY | [address] | about test results | | | | [address] | [address] [place], [place] | and possible | | | | [address] [place], [place] | [address] | scheduling) | | | | [address] | | | | | | [phone] | | | +--------+ + + + [...]
--- OUTSIDE RECORDS SUMMARY | ~2019-06-13 | XMS | Encounter Summary ---
Demographics + + + | Address | [address] | | | [place] [address] | + + + | Home Phone | | + + + | Preferred Language | Unknown | + + + | Marital Status | Single | + + + | Mandaeism Affiliation | 1073 | + + + | Race | Unknown | + + + | Ethnic Group | Unknown | + + + Author + + + | Author | [facility] | | | and [place] | + + + | Organization | [facility] | | | and [...] | | | | | [place] [address] | | + + + + + Care Team Providers + +------+ + | Care Silk Screen Repairer Name | Role | Phone | [...] + | 04/30/ | Telephone | [facility] | Dustin Ernandez | Referral | | 2020 | | GASTROENTEROLOGY | MD Carmella [address] | | | | | [address] | [place] [address] | | | | | [place], [place] | [phone] | | | | | [address] | | | | | | [phone] | | | +--------+ + + + [...]
--- OUTSIDE RECORDS SUMMARY | ~2019-06-13 | XMS | Encounter Summary ---
Demographics + + + | Address | [address] | | | [place] [address] | + + + | Home Phone | | + + + | Preferred Language | Unknown | + + + | Marital Status | Single | + + + | Pentecostal Affiliation | 1073 | + + + | Race | Unknown | + + + | Ethnic Group | Unknown | + + + Author + + + | Author | [facility] | | | and [place] | + + + | Organization | [facility] | | | and [...] | | | | | [place] [address] | | + + + + + Care Team Providers + +------+ + | Care French Translator Name | Role | Phone | + [...] | | pancreatitis | Antonio Alfonso | [facility] | | | | | ([facility]) | AUDIE, | [place], [place] | | | | | | [place] [address] | [address] Phone: | | | | | | Phone: | [phone] | | | | | | [phone] | Fax: | | | | | | Fax: | [phone] | | | | | | [phone] | | + +--------+ + + + + Encounter Details +--------+---------+ + + + | Date | Type | Department | Care Team | Description | +--------+---------+ + + + | 05/02/ | Office | [facility] | Rohith Montano | Alcohol-induced | | 2019 | Visit | GASTROENTEROLOGY | MD Lazaro [address] | acute pancreatitis | | | | [address] | [address]VD [place], [place] | without infection or | | | | [place], [place] | [address] | necrosis (Primary | | | | [address] | | Dx); 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 male. HPI Patient with history of alcohol abuse with prior episodes of alcohol induced pancreatitis p resents for new patient evaluation due to persisting abdominal pain after most recent episod e of acute alcoholic pancreatitis. His most recent hospitalization at [facility] was the beginning of this month [...] mg by mouth 2 times daily. CREON 1612-2270 units per capsule Take 1 capsule by [...] Procedure: COLONOSCOPY; Surgeon: Tan Mcrae MD; Location: [facility] MEDICAL PROCEDURE UNIT COLONOSCOPY 10/02/2015 HAND TENDON SURGERY Right KIDNEY STONE SURGERY UPPER GASTROINTESTINAL ENDOSCOPY N/A 02/23/2017 Procedure: EGD; Surgeon: Tan Mcrae MD; Location: [facility] MEDICAL PROCEDURE UNIT UPPER GASTROINTESTINAL [...] file Gets together: Not on file Attends latter day service: Not on file Active member of [...] urinary bladder is poorly evaluated. No ac bill moore's slough abnormality identified. BONES AND SOFT TISSUES: Fat-containing [...] with his PCP which is fine. Thai Mnotano IV, M.D. [facility] 05/03/2019 This note was dictated using [email or web address] voice recognition software. Document was reviewed at ti me of dictation but [id number]-[id number]-rydo errors may be present. Please call with any questions or c larifications. TIME: New patient - total direct [id number]-[id number] time of 45 minutes spent in reviewing [...]
--- OUTSIDE RECORDS SUMMARY | ~2019-06-13 | XMS | Encounter Summary ---
Demographics + + + | Address | [address] | | | [place] [address] | + + + | Home Phone | | + + + | Preferred Language | Unknown | + + + | Marital Status | Single | + + + | Shinto Affiliation | 1073 | + + + | Race | Unknown | + + + | Ethnic Group | Unknown | + + + Author + + + | Author | [facility] | | | and [place] | + + + | Organization | [facility] | | | and [place] | + + + | Address | Unknown | + + + | Phone | Unavailable | + + + Support + + + + + | Name | Relationship | Address | Phone | + + + + + | Robby Zamora | [place] | [address] | | | | | [place] [address] | | + + + + + Care Team Providers + +------+ + | Care Sheet Metal Duct Installer Name | Role | Phone | + [...] | | | | [address] [facility] | | | | | | [address] [place] | | | | | | [address] | | | | | | [phone] | | | +--------+ + + + [...]
--- OUTSIDE RECORDS SUMMARY | ~2019-06-13 | XMS | Encounter Summary ---
Demographics + + + | Address | [address] | | | [place] [address] | + + + | Home Phone | | + + + | Preferred Language | Unknown | + + + | Marital Status | Single | + + + | Gnosticist Affiliation | 1073 | + + + | Race | Unknown | + + + | Ethnic Group | Unknown | + + + Author + + + | Author | [facility] | | | and [place] | + + + | Organization | [facility] [...] | | | | | [place] [address] | | + + + + + Care Team Providers + +------+ + | Care Community Health Nurse Name | Role | Phone | + [...] [place] | | | | | | [address] | | | | | | [phone] | | | +--------+ + + + [...]
--- OUTSIDE RECORDS SUMMARY | ~2019-06-13 | XMS | Encounter Summary ---
Demographics + + + | Address | [address] | | | [place] [address] | + + + | Home Phone [...] + + + | Author | [facility] | | | and [place] | + + + | Organization | [facility] | | | and [...] | | | | | [place] [address] | | + + + + + Care Team Providers + +------+ + | Care Engine Inspector Name | Role | Phone | + [...] | | | | [address] [facility] | | | | | | [address] | | | | | | [address] | | | | | | [phone] | | | +--------+ + + + [...]
--- OUTSIDE RECORDS SUMMARY | ~2019-06-13 | XMS | Encounter Summary ---
Demographics + + + | Address | [address] | | | [place] [address] | + + + | Home Phone | | + + + | Preferred Language | Unknown | + + + | Marital Status | Single | + + + | Amish Affiliation | 1073 | + + + | Race | Unknown | + + + | Ethnic Group | Unknown | + + + Author + + + | Author | [facility] | | | and [place] | + + + | Organization | [facility] | | | and [place] | + + + | Address | Unknown | + + + | Phone | Unavailable | + + + Support + + + + + | Name | Relationship | Address | Phone | + + + + + | Robby Zamora | [place] | [address] | | | | | [place] [address] | | + + + + + Care Team Providers + +------+ + | Care Jewelry Designer Name | Role | Phone | + [...] [place] | | | | | | [address] | | | | | | [phone] | | | +--------+ + + + [...]
[~2019-06-13 10:14] MED LIST changes: +AMLODIPINE BESY10 MG PO; +BRINTELLIX20 MG PO; +CIPROFLOXACIN500 MG PO; +CLONIDINE HCL0.2 MG PO; +COLCHICINE0.6 M1 PO; +CREON DR 24,001 EACH PO; +DILTIAZEM ER120 MG PO; +GABAPENTIN600 MG PO; +IBUPROFEN600 MG PO; +KEPPRA500 MG PO; +LEVOTHYROXINE112 MCG PO; -LEVOTHYROXINE75 MCG PO; +METOPROLOL SUC100 MG PO; +METRONIDAZOLE250 MG PO; +NICOTINE PATCH1 EAC1 TD; +OXYCODON-ACETA1 EAC2 PO; +PERCOCET 5-3251 EACH PO; +QUETIAPINE FUM300 MG PO; +ROXYBOND5 MG PO; +SUCRALFATE1 GM PO; +ZOFRAN ODT4 MG PO
--- NOTE | 2019-06-13 13:08 | EKG ---
[facility] [address] [facility] [place] [address] Signed Normal sinus rhythm Left axis deviation Low voltage QRS Inferior infarct , age undetermined Cannot rule out Anterior infarct (cited on or before 13-JUN-2019) T wave abnormality, consider lateral ischemia Abnormal ECG When compared with ECG of 13-JUN-2019 12:46, (Unconfirmed) No significant change was found Confirmed by LUIS MIGUEL ZULUAGA DO ([id number]) on 06/13/2019 1:08:15 PM Electronically Signed By: LUIS MIGUEL ZULUAGA DO 06/13/19 1308 PATIENT NAME: JAS RAMIREZ Electrocardiogram DATE OF : 61 PHYSICIAN: LUIS MIGUEL ZULUAGA DO REPORT #: [id number] REPORT IS CONFIDENTIAL AND NOT TO BE RELEASED WITHOUT AUTHORIZATION
[2019-06-13] MEDS ORDERED: MORPHINE SULFAT15 MG PO (16:55)
[2019-06-13] MEDS ORDERED: NICOTINE LOZENGE4 MG BUCCAL (16:56)
[2019-06-13] MEDS ORDERED: NICOTINE PATCH1 EAC1 TD (16:57)
[2019-06-13] MEDS ORDERED: OMEPRAZOLE40 MG PO (16:59)
[2019-06-18] MEDS ORDERED: MORPHINE SULFAT15 MG PO (09:12)
== END 2019-06-18 10:00 | disposition home or self-care (01) | DRG 440 ==
LOC: MS 10:14 → EDSTATUS 13:44 → MS 06-18 10:00
PROVIDERS: ADMIT Student in an Organized Health Care Education/Training Program
DX: K85.20 Alcohol induced acute pancreatitis without necrosis or infection (principal); K86.0 Alcohol-induced chronic pancreatitis; I10 Essential (primary) hypertension; E03.9 Hypothyroidism, unspecified; F31.9 Bipolar disorder, unspecified; G40.909 Epilepsy, unspecified, not intractable, without status epilepticus; K21.9 Gastro-esophageal reflux disease without esophagitis; F10.20 Alcohol dependence, uncomplicated; F17.210 Nicotine dependence, cigarettes, uncomplicated; R91.1 Solitary pulmonary nodule; Z79.899 Other long term (current) drug therapy; Z79.891 Long term (current) use of opiate analgesic
CPT/HCPCS: 36415; 80048; 80053; 83690; 83735; 84100; 85025; 93005; 93010; 99406; C9113; J1170; J1650; J1953; J2060; J2405; J2550; J3411; J3475; J3480; J7060; J7120; J7121; U0002

== ENCOUNTER 2019-08-11 09:22 | Emergency (ER) | payer OTHER ==
[~2019-08-11] VITALS: Ht 188 cm; Wt 93.4 kg
--- OUTSIDE RECORDS SUMMARY | ~2019-08-11 | XMS | Encounter Summary ---
Demographics + + + | Address | [address] | | | [place] [address] | + + + | Home Phone | | + + + | Preferred Language | Unknown | + + + | Marital Status | Single | + + + | Orthodoxy Affiliation | 1073 | + + + | Race | Unknown | + + + | Ethnic Group | Unknown | + + + Author + + + | Author | [facility] | | | and [place] | + + + | Organization | [facility] | | | and [place] | + + + | Address | Unknown | + + + | Phone | Unavailable | + + + Support + + + + + | Name | Relationship | Address | Phone | + + + + + | Robby Zamora | ECON | [address] | | | | | [place] [address] | | + + + + + Care Team Providers + +------+ + | Care Shoveler Name | Role | Phone | + +------+ + PCP | Unavailable | + +------+ + Encounter Details +--------+ + + + + | Date | Type | Department | Care Team | Description | +--------+ + + + + | 03/04/ | Hospital | [facility] | Jose R Moncada | | | 2007 | Encounter | MEDICINE [address] | [place] | | | | | [place], [place] | | | | | | [address] | | | | | | [phone] | | | +--------+ + + + + Social History + +-------+ +--------+------+ | Tobacco Use | Types | Packs/Day | Years | Date | | | | | Used | | + +-------+ +--------+------+ | Never Assessed | | | | | + +-------+ +--------+------+ + + + | Sex Assigned at | Date Recorded | | | | + + + | Not on file | | + + + documented as of this encounter Plan of Treatment Not on filedocumented as of this encounter Visit Diagnoses Not on filedocumented in this encounter"
--- OUTSIDE RECORDS SUMMARY | ~2019-08-11 | XMS | Encounter Summary ---
Demographics + + + | Address | [address] | | | [place] [address] | + + + | Home Phone | | + + + | Preferred Language | Unknown | + + + | Marital Status | Single | + + + | Temple Affiliation | 1073 | + + + | Race | Unknown | + + + | Ethnic Group | Unknown | + + + Author + + + | Author | [facility] | | | and [place] | + + + | Organization | [facility] | | | and [place] | + + + | Address | Unknown | + + + | Phone | Unavailable | + + + Support + + + + + | Name | Relationship | Address | Phone | + + + + + | Robby Zamora | ECON | [address] | | | | | [place] [address] | | + + + + + Care Team Providers + +------+ + | Care 7Th Grade Social Studies Teacher Name | Role | Phone | + +------+ + | Jann Jaramillo MD | PCP | | + +------+ + Reason for Visit + + + | Reason | Comments | + + + | Medication Refill | | + + + Encounter Details +--------+--------+ + + + | Date | Type | Department | Care Team | Description | +--------+--------+ + + + | 03/01/ | Refill | [facility] | Tan Mcrae MD | Medication Refill | | 2018 | | GASTROENTEROLOGY | [address], [place] | | | | | [address] | [address] [place], [place] | | | | | [address] [place], [place] | [address] | | | | | [address] | | | | | | [phone] | | | +--------+--------+ + + + Social History + + [...]
--- OUTSIDE RECORDS SUMMARY | ~2019-08-11 | XMS | Encounter Summary ---
Demographics + + + | Address | [address] | | | [place] [address] | + + + | Home Phone | | + + + | Preferred Language | Unknown | + + + | Marital Status | Single | + + + | Latter-Day Affiliation | 1073 | + + + | Race | Unknown | + + + | Ethnic Group | Unknown | + + + Author + + + | Author | [facility] | | | and [place] | + + + | Organization | [facility] | | | and [...] | | | | | [place] [address] | | + + + + + Care Team Providers + +------+ + | Care Certified Substance Abuse Counselor Name | Role | Phone | + +------+ + | Jann Jaramillo MD | PCP | | + +------+ + Encounter Details +--------+ + + + + | Date | Type | Department | Care Team | Description | +--------+ + + + + | 02/15/ | Episode | [facility] [place] | Gely Edwards | | | 2018 | Changes | GASTROENTEROLOGY | M, RN | | | | | [address] | | | | | | [address] [place] | | | | | | [address] | | | | | | [phone] | | | +--------+ + + + [...]
--- OUTSIDE RECORDS SUMMARY | ~2019-08-11 | XMS | Encounter Summary ---
Demographics + + + | Address | [address] | | | [place] [address] | + + + | Home Phone | | + + + | Preferred Language | Unknown | + + + | Marital Status | Single | + + + | Nondenominational Affiliation | 1073 | + + + | Race | Unknown | + + + | Ethnic Group | Unknown | + + + Author + + + | Author | [facility] | | | and [place] | + + + | Organization | [facility] | | | and [place] | + + + | Address | Unknown | + + + | Phone | Unavailable | + + + Support + + + + + | Name | Relationship | Address | Phone | + + + + + | Robby Zamora | ECON | [address] | | | | | [place] [address] | | + + + + + Care Team Providers + +------+ + | Care [place] Program Coordinator Name | Role | Phone | + +------+ + PCP | Unavailable | + +------+ + Encounter Details +--------+ + + + + | Date | Type | Department | Care Team | Description | +--------+ + + + + | 09/18/ | Hospital | [facility] | Conversion | Pain | | 2017 | Encounter | CONVERSION [address] | Transaction, | | | | | [address] | Provider Unknown | | | | | [place], [place] | [phone] | | | | | [address] | | | | | | [phone] | | | +--------+ + + + [...] | + +--------+ + + + | MRI BRAIN WO | Routin | 08/27/2016 | | Results for this | | CONTRAST | e | 11:11 PM | | procedure are in the | | | | PDT | | results section. | + +--------+ + + + documented in this encounter Results MRI Brain wo Contrast (08/27/2016 11:11 PM PDT) + + | Specimen | + + | | + + + + + | Narrative | Performed At | + + + | This is a non-reportable procedure without a radiologist report and | | | is used for image storage only | | + + + + + | Procedure Note | + + | Scooby Lowery - 09/22/2018 1:07 AM PDT This is a non-reportable procedure | | without a radiologist report and isused for image storage only | + + documented in this encounter Visit Diagnoses + + | Diagnosis | + + | Pain Generalized pain | + + documented in this encounter"
--- OUTSIDE RECORDS SUMMARY | ~2019-08-11 | XMS | Encounter Summary ---
Demographics + + + | Address | [address] | | | [place] [address] | + + + | Home Phone | | + + + | Preferred Language | Unknown | + + + | Marital Status | Single | + + + | Religion Affiliation | 1073 | + + + | Race | Unknown | + + + | Ethnic Group | Unknown | + + + Author + + + | Author | [facility] | | | and [place] | + + + | Organization | [facility] | | | and [place] | + + + | Address | Unknown | + + + | Phone | Unavailable | + + + Support + + + + + | Name | Relationship | Address | Phone | + + + + + | Robby Zamora | ECON | [address] | | | | | [place] [address] | | + + + + + Care Team Providers + +------+ + | Care Hand Developer Name | Role | Phone | + +------+ + PCP | Unavailable | + +------+ + Encounter Details +--------+ + + + + | Date | Type | Department | Care Team | Description | +--------+ + + + + | 02/26/ | Hospital | [facility] | Jose R Moncada | | | 2006 | Encounter | MEDICINE [address] | [address] | | | | | [place], [place] | | | | | | [address] | | | | | | [phone] | | | +--------+ + + + [...]
--- OUTSIDE RECORDS SUMMARY | ~2019-08-11 | XMS | Encounter Summary ---
Demographics + + + | Address | [address] | | | [place] [address] | + + + | Home Phone | | + + + | Preferred Language | Unknown | + + + | Marital Status | Single | + + + | Rastafari Affiliation | [id number] | + + + | Race | Unknown | + + + | Ethnic Group | Unknown | + + + Author + + + | Author | [facility] | | | and [place] | + + + | Organization | [facility] | | | and [...] | | | | | [place] [address] | | + + + + + Care Team Providers + +------+ + | Care Manifest Clerk Name | Role | Phone | + +------+ + | aJnn Jaramillo MD | PCP | | + [...] | | | | | | | [place] | | | | | | | ESOPHAGOGAST | | | | | | | RODUODENOSCO | | | | | | | PY TRANSORAL | | | | | | | DIAGNOSTIC | | | | | | | OK EGD | | | | | | | TRANSORAL | | | | | | | BIOPSY | | | | | | | SINGLE/MULTI | | | | | | | PLE OK | | | | | | | COLONOSCOPY | | | | | | | FLX DX | | | | | | | W/COLLJ SPEC | | | | | | | WHEN PFRMD | | | | | | | OK | | | | | | | COLONOSCOPY | | | | | | | W/BIOPSY | | | | | | | SINGLE/MULTI | | | | | | | PLE OK | | | | | | | COLSC FLX | | | | | | | W/RMVL OF | | | | | | | TUMOR POLYP | | | | | | | LESION SNARE | | | | | | | TQ OK | | | | | | | [...] + + + + | 02/23/ | Anesthesia | [facility] | Robbie Hadley | | | 2018 | Event | [facility] | MD Marie [address] | | | | | [address] | [address] [place] | | | | | [place] | [address] | | | | | [address] | [phone] | | | | | [phone] | | | +--------+ + + + + Anesthesia Record + + + + + | Procedure Name | Responsible | Anesthesia Start | Anesthesia Stop Time | | | Anesthesiologist | Time | | + + + + + | EGD (N/A Mouth) | Robbie Salazar Zackarytanya, | 02/23/17 1138 | 02/23/17 1233 | | | MD | | | + + + + + +----+---+ + + | Da | T | Event | Comment | | te | i | | | | | m | | | | | e | | | +----+---+ + + | 01 | 1 | | | | /1 | 1 | | | | 6/ | 3 | | | | 20 | 7 | | | | 18 | | | | +----+---+ + + | | 1 | An Checkout | Pre-use anesthesia machine/equipment checkout. | | | 1 | | | | | 3 | | | | | 7 | | | +----+---+ + + | | 1 | an fly now | Anesthesia Ready | | | 1 | | | | | 3 | | | | | 8 | | | +----+---+ + + | | 1 | An Start | Room ready, anesthesia equipment checked, essential drugs & | | | 1 | | equipment available. Patient Identity checked, anesthesia plan | | | 3 | | explained and consent obtained. Patient transported to [facility], | | | 8 | | Monitors applied. Reassessment prior to anesthesia | | | | | induction/procedure. | +----+---+ + + | | 1 | AN | Per surgeon request | | | 1 | Antibiotic | | | | 3 | declined | | | | 9 | | | +----+---+ + + | | 1 | First | | | | 1 | Inc/Proc St | | | | 4 | | | | | 3 | | | +----+---+ + + | | 1 | an fly now | EGD | | | 1 | | | | | 4 | | | | | 7 | | | +----+---+ + + | | 1 | an fly now | Colonoscopy | | | 2 | | | | | 0 | | | | | 1 | | | +----+---+ + + | | 1 | an fly now | [facility] | | | 2 | | | | | 3 | | | | | 1 | | | +----+---+ + + | | 1 | an stop | | | | 2 | data | | | | 3 | | | | | 1 | | | +----+---+ + + | | 1 | An Stop | Patient handed off to recovery nurse. | | | 3 | | | | | 3 | | | +----+---+ + + +------+ | Meds | +------+ + + + | Name | Total | + + + | propofol | 160 mg | + + + | propofol (DIPRIVAN) injection | 427.61 mg | | (bolus) (20 mL) | | + + + | lactated ringers (LR) infusion | 900 mL | + + + + + | Name | + + | O2 Flow Rate (L/Min) | + + + + | No blood administrations on file. | + + + + | No LDAs on file. | + + documented in this encounter Social History + + + +--------+------+ | [...] + + documented as of this encounter OR Notes Anesthesia Postprocedure Evaluation - Robbie Hadley MD - 02/23/2017 1:11 PM PSTForm atting of this note might be different from the original. ANESTHESIA POSTANESTHESIA EVALUATION Robby Zamora 51 y.o. male 1965 [id number] Procedure(s) EGD (N/A Mouth) COLONOSCOPY (N/A Rectum) Cooperates? Yes Mental Status Performs simple tasks. Respiratory Satisfactory - Airway patent (self maintained). Cardiovascular Satisfactory - Blood pressure and heart rate acceptable Temperature Satisfactory Pain Satisfactory N/V Control Satisfactory Hydration Satisfactory - No signs of dehydration Complications None apparent Vitals: 02/23/17 1103 02/23/17 1233 02/23/17 1245 BP: 106/80 (!) 130/94 (!) 148/103 Pulse: 61 65 56 Temp: 36.7 C (98.1 F) 37.1 C (98.8 F) Resp: 18 16 SpO2: 98% 94% 95% Electronically signed by Robbie Hadley MD 02/23/2017 13:11 [facility] nesthesia Preprocedure Evaluation - Robbie Hadley MD - 2017 8:44 PM PST ANESTHESIA PREANESTHESIA EVALUATION Robby Zamora 51 y.o. male 1965 [id number] Procedure(s): EGD (N/A Mouth) COLONOSCOPY (N/A Rectum) Review of Systems / Med History Cardiovascular (+) hypertension Pulmonary (+) smoking history Neurology (+) seizures Psychology (+) bipolar disorder Physical Exam Airway MP II, TM >3 FB, Mouth opening >2 FB. Neck: full ROM, extends >30 degrees. Jaw protrus ion normal. Dental Grossly normal except where noted below.; CV cardiovascular normal Rhythm regular. Rate Normal. (-) murmur. Pulm Clear to auscultation bilaterally. Neuro Grossly normal. Anesthesia Plan ASA 3 Type: TIVA. Induction: Intravenous. Potential problems: None anticipated, none anticipated. Monitors: Standard ASA monitors. Consent statement:Anesthetic plan, alternatives, risks and benefits discussed with patient. Risks discussed included (but were not limited to): sore throat, pain, disability, perioper ative CV events, infection, muscle aches, voice injury, drug reaction, heart problems, nause a, respiratory events, . Consenting person understands and agrees to proceed. Patient Active Problem List: Diarrhea Epigastric pain Seizure disorder Weight loss, unintentional Anxiety and depression Hypertension Beta Blockers - Daily Use Bipolar 1 disorder Memory loss Concussion Smoker - Daily H/O Kidney stones . Electronically Signed by: Robbie Hadley MD ESig date/time: 02/22/2017 20:44 documented in thi s encounter Plan of Treatment Not on filedocumented as of this encounter Visit Diagnoses Not on filedocumented in this encounter Administered Medications + +---------+ +------+------+------+ | Medication Order | MAR | Action | Dose | Rate | Site | | | Action | Date | | | | + +---------+ +------+------+------+ | lactated ringers (LR) infusion | New Bag | 02/23/19 | | | | | at 100 mL/hr, Intravenous, | | 18 11:00 | | | | | CONTINUOUS, Starting 02/23/17 | | AM PST | | | | | at 1130, Pre-op | | | | | | + +---------+ +------+------+------+ +---+---+ | | | +---+---+ + +-------+ +-------+---+---+ | propofol (DIPRIVAN) injection | Given | 02/23/19 | 40 mg | | | | Intravenous, PRN, Starting Tue | | 18 11:47 | | | | | 02/23/17 at 1144, Anesthesia | | AM PST | | | | | Intra-op | | | | | | + +-------+ +-------+---+---+ +-------+ +-------+---+---+ | Given | 02/23/19 | 40 mg | | | | | 18 11:46 | | | | | | AM PST | | | | +-------+ +-------+---+---+ | Given | 02/23/19 | 40 mg | | | | | 18 11:45 | | | | | | AM PST | | | | +-------+ +-------+---+---+ +---+---+ | | | +---+---+ + + + + + +---+ | propofol (DIPRIVAN) injection | Rate/Dos | 02/23/19 | 100 | 59 mL/hr | | | Intravenous, CONTINUOUS PRN, | e Change | 18 12:07 | mcg/kg/m | | | | Starting 02/23/17 at 1147, | | PM PST | in | | | | Anesthesia Intra-op | | | | | | + + + + + +---+ + + + +-------+---+ | Rate/Dose Change | 02/23/19 | 125 | 73.7 | | | | 18 11:57 | mcg/kg/m | mL/hr | | | | AM PST | in | | | + + + +-------+---+ | New Bag | 02/23/19 | 150 | 88.5 | | | | 18 11:47 | mcg/kg/m | mL/hr | | | | AM PST | in | | | + + + +-------+---+ +---+---+ | | | +---+---+ documented in this encounter"
--- OUTSIDE RECORDS SUMMARY | ~2019-08-11 | XMS | Encounter Summary ---
Demographics + + + | Address | [address] | | | [place] [address] | + + + | Home Phone | | + + + | Preferred Language | Unknown | + + + | Marital Status | Single | + + + | Pentecostal Affiliation | 1073 | + + + | Race | Unknown | + + + | Ethnic Group | Unknown | + + + Author + + + | Author | [facility] | | | and [place] | + + + | Organization | [facility] | | | and [...] | | | | | [place] [address] | | + + + + + Care Team Providers + +------+ + | Care Cocoa Mill Operator Name | Role | Phone | [...] [place] | | | | | | [address] | | | | | | [phone] | | | +--------+ + + + [...]
--- OUTSIDE RECORDS SUMMARY | ~2019-08-11 | XMS | Encounter Summary ---
Demographics + + + | Address | [address] | | | [place] [address] | + + + | Home Phone | | + + + | Preferred Language | Unknown | + + + | Marital Status | Single | + + + | Hinduism Affiliation | 1073 | + + + | Race | Unknown | + + + | Ethnic Group | Unknown | + + + Author + + + | Author | [facility] | | | and [place] | + + + | Organization | [facility] | | | and [place] | + + + | Address | Unknown | + + + | Phone | Unavailable | + + + Support + + + + + | Name | Relationship | Address | Phone | + + + + + | Robby Zamora | ECON | [address] | | | | | [place] [address] | | + + + + + Care Team Providers + +------+ + | Care Wholesale Account Executive Name | Role | Phone | + +------+ + | Jann Jaramillo MD | PCP | | + +------+ + Encounter Details +--------+ + + + + | Date | Type | Department | Care Team | Description | +--------+ + + + + | 02/17/ | Episode | [facility] | Clementina Oliveira | | | 2018 | Changes | GASTROENTEROLOGY | L, RN | | | | | [address] | | | | | | [address] [place] | | | | | | [address] | | | | | | [phone] | | | +--------+ + + + [...]
--- OUTSIDE RECORDS SUMMARY | ~2019-08-11 | XMS | Encounter Summary ---
Demographics + + + | Address | [address] | | | [place] [address] | + + + | Home Phone | | + + + | Preferred Language | Unknown | + + + | Marital Status | Single | + + + | Baptism Affiliation | [id number] | + + + | Race | Unknown | + + + | Ethnic Group | Unknown | + + + Author + + + | Author | [facility] | | | and [place] | + + + | Organization | [facility] | | | and [place] | + + + | Address | Unknown | + + + | Phone | Unavailable | + + + Support + + + + + | Name | Relationship | Address | Phone | + + + + + | Robby Zamora | ECON | [address] | | | | | [place] [address] | | + + + + + Care Team Providers + +------+ + | Care Business Services Sales Agent Name | Role | Phone | + +------+ + | Jann Jaramillo MD | PCP | | + +------+ + Reason for Visit + + + | Reason | Comments | + + + | Pancreatitis | | + + + Evaluate & Treat (Routine) + +--------+ + + + + | Status | Reason | Specialty | Diagnoses / | Referred By | Referred To | | | | | Procedures | Contact | Contact | + +--------+ + + + + | Authorized | | Gastroenterol | Diagnoses | Alvin, | Charmaine, | | | | ogy | Other | Ronald Paz MD | Rohith Willis, | | | | | chronic | [address] | [address] | | | | | pancreatitis | [address] | [address] | | | | | (HCC) | [place], | [place], [place] | | | | | | [place] [address] | [address] Phone: | | | | | | Phone: | [phone] | | | | | | [phone] | Fax: | | | | | | Fax: | [phone] | | | | | | [phone] | | + +--------+ + + + + Encounter Details +--------+---------+ + + + | Date | Type | Department | Care Team | Description | +--------+---------+ + + + | 03/25/ | Office | [facility] | Rohith Montano | Alcohol-induced | | 2019 | Visit | GASTROENTEROLOGY | MD Lazaro [address] | acute pancreatitis | | | | [address] | [address]VD [place], [place] | without infection or | | | | [place], [place] | [address] | necrosis (Primary | | | | [address] | | Dx); Alcohol-induced | | | | [phone] | | chronic | | | | | | pancreatitis (HCC); | | | | | | Epigastric abdominal | | | | | | pain; Weight loss; | | | | | | Nausea; Anorexia; | | | | | | Smoker - Daily; | | | | | | Alcohol abuse | +--------+---------+ + + + Social History + + + +--------+------+ | Tobacco Use | Types | Packs/Day | Years | Date | | | | | Used | | + + + +--------+------+ | Current Every Day | Cigarettes | 0.5 | 25 | | | Smoker | | | | | + + + +--------+------+ + +---+---+---+ | Smokeless Tobacco: | | | | | Former User | | | | + +---+---+---+ + + +---------+ + | Alcohol Use | Drinks/Week | oz/Week | Comments | + + +---------+ + | Not Currently | | | Per patient no | | | | | alcohol since | | | | | 03/2019, he is unsure | | | | | exact date. | | | | | -05/03/2019 | + + +---------+ + + + [...] + + + | Blood Pressure | 111/75 | 05/03/2019 1:57 PM | | | | | PDT | | + + + + + | Pulse | 61 | 05/03/2019 1:57 PM | | | | | PDT | | + + + + + [...] + + + + | Weight | 99.1 kg (218 lb 6.4 | 05/03/2019 1:57 PM | | | | oz) | PDT | | + + + + + | Height | 188 cm (6' 2") | 05/03/2019 1:57 PM | | | | | PDT | | + + + + + | Body Mass Index | 28.04 | 05/03/2019 1:57 PM | | | | | PDT | | + + + + + documented in this encounter Progress Notes Rohith Montano MD - 05/03/2019 2:00 PM PDT [facility] Gastroenterology Subjective: Chief Complaint Patient presents with Pancreatitis Patient ID: Robby Zamora is a 53 y.o. male. HPI Patient with history of alcohol abuse with prior episodes of alcohol induced pancreatitis p resents for new patient evaluation due to persisting abdominal pain after most recent episod e of acute alcoholic pancreatitis. His most recent hospitalization at [facility] was the beginning of this month though appears to have also had problems beginning January 2019. He typically has tried to manage his flares of pain in the past with stopp ing alcohol for about a month and then unfortunately resuming. Since his current episode of pain has been very severe and not improving he has again remained off all alcohol and swear s off restarting this time. Claims no alcohol in at least a month at this point. Zeus scott does continue to smoke. He describes some stomach pains developing over the past year which he claims are different than the pancreatitis. The stomach pain still continues now a s well as what he refers to as more the pancreatitis pain. Typically in the past he has bee n able to stop eating, be given IV fluids and pain medication and symptoms would eventually subside. Currently remains with significant epigastric pain which is accentuated anytime he takes or al intake including fluids. A lot of nausea but no vomiting. Can only tolerate small amoun ts of liquid currently. Typically tries to drink a moderate amount of fluid at a time. He then ends up stopping because of the pain. Claims his weight over the past number of months has decreased from a baseline of around 240 pounds down to 218 pounds currently. He will g et intermittent small volume loose stools. No oily appearing stool or visible blood in the stool. He was appropriately placed on pancreatic enzymes which he has taken 3 times daily o latrell the last 3 weeks but does not seem to have helped at all. He denies any reflux type sym ptoms just very poor appetite and the abdominal pain. Alcohol had been averaging as much as three quarters of a fifth of hard liquor per day. He still remains with tobacco use curren tly down to about half a pack per day. He has never had pain persist this long. He has bee n offered repeat hospitalization in his local area but wants to try to manage this at home. Repeat imaging has not shown any large fluid accumulation or any a description of pancreati c necrosis. Patient's medications, allergies, past medical, surgical, social and family histories were obtained and reviewed as appropriate. Allergies: No Known Allergies Medications: Current Outpatient Medications Medication Sig Dispense Refill amLODIPine (NORVASC) 10 MG tablet Take 1 tablet by mouth Daily. ARIPiprazole (ABILIFY) 5 mg tablet Take 5 mg by mouth Daily. cloNIDine (CATAPRES) 0.2 MG tablet Take 0.2 mg by mouth 2 times daily. CREON 2741-9651 units per capsule Take 1 capsule by mouth 3 times daily (with meals). gabapentin (NEURONTIN) 300 mg capsule Take 1 capsule by mouth 3 times daily. levETIRAcetam (KEPPRA) 500 mg tablet Take 500 mg by mouth 2 times daily. LEVOTHYROXINE SODIUM PO Take 0.075 mg by mouth Daily. metoprolol succinate (TOPROL-XL) 100 mg ER tablet Take 100 mg by mouth Daily. omeprazole (PRILOSEC) 40 MG capsule Take 40 mg by mouth nightly. oxyCODONE (OXYCONTIN) 10 mg ER abuse-deterrent tablet Take 10 mg by mouth as needed. No current facility-administered medications for this visit. Past Medical History: Diagnosis Date Alcohol-induced pancreatitis Anxiety and depression Cheek's esophagus Beta Blockers - Daily Use 02/22/2017 Bipolar disorder (HCC) Colon polyp adenoma Diverticulitis Diverticulosis sigmoid Fatty liver Functional diarrhea GERD (gastroesophageal reflux disease) H/O Kidney stones 02/22/2017 Hearing deficit History of alcohol dependence (HCC) Hx of colonoscopy with polypectomy 02/23/2017 Transverse polyp with tubular adenoma, recall in 5 years Hx of esophagogastroduodenoscopy 02/23/2017 Distal esophagus showed small foci of Cheek's Metaplasia without atypia, recall in one y ear Hypertension LLQ abdominal tenderness Memory problem Pancreatitis 09/2018, 06/2018 Alcohol induced Seizure disorder (HCC) Smoker - Daily 02/22/2017 Past Surgical History: Procedure Laterality Date COLONOSCOPY N/A 02/23/2017 Procedure: COLONOSCOPY; Surgeon: Tan Mcrae MD; Location: [facility]URE [facility] COLONOSCOPY 10/02/2015 HAND TENDON SURGERY Right KIDNEY STONE SURGERY UPPER GASTROINTESTINAL ENDOSCOPY N/A 02/23/2017 Procedure: EGD; Surgeon: Tan Mcrae MD; Location: [facility] PROC[facility]URE [facility] UPPER GASTROINTESTINAL ENDOSCOPY 10/02/2015 URETEROSCOPY Right 06/2010 Stone extractions, [facility] by Dr. Crow Family History Problem Relation Age of Onset Other (see comment) Mother Respiratory disorder Colon polyps Mother Hypertension Father Diabetes Father Colon polyps Father Hypertension Brother Colon cancer Neg Hx Social History Socioeconomic History Marital status: Single Spouse name: Not on file Number of children: Not on file Years of education: Not on file Highest education level: Not on file Occupational History Not on file Social Needs Financial resource strain: Not on file Food insecurity: Worry: Not on file Inability: Not on file Transportation needs: Medical: Not on file Non-medical: Not on file Tobacco Use Smoking status: Current Every Day Smoker Packs/day: 0.50 Years: 25.00 Pack years: 12.50 Types: Cigarettes Smokeless tobacco: Former User Substance and Sexual Activity Alcohol use: Not Currently Comment: Per patient no alcohol since 03/2019, he is unsure exact date. -05/03/2019 Drug use: Yes Types: Marijuana Comment: 7-14 times per week Sexual activity: Not on file Lifestyle Physical activity: Days per week: Not on file Minutes per session: Not on file Stress: Not on file Relationships Social connections: Talks on phone: Not on file Gets together: Not on file Attends muslim service: Not on file Active member of club or organization: Not on file Attends meetings of clubs or organizations: Not on file Relationship status: Not on file Intimate partner violence: Fear of current or ex partner: Not on file Emotionally abused: Not on file Physically abused: Not on file Forced sexual activity: Not on file Other Topics Concern Not on file Social History Narrative Not on file Social History Tobacco Use Smoking Status Current Every Day Smoker Packs/day: 0.50 Years: 25.00 Pack years: 12.50 Types: Cigarettes Smokeless Tobacco Former User Social History Substance and Sexual Activity Alcohol Use Not Currently Comment: Per patient no alcohol since 03/2019, he is unsure exact date. -05/03/2019 Social History Substance and Sexual Activity Drug Use Yes Types: Marijuana Comment: 7-14 times per week Social History Substance and Sexual Activity Sexual Activity Not on file Review of Systems Constitutional: Positive for fatigue and unexpected weight change (loss of 15 lbs in past c ouple weeks per patient). Negative for activity change, appetite change, chills, diaphoresis and fever. HENT: Negative for ear pain, mouth sores, nosebleeds, sore throat, trouble swallowing and v oice change. Eyes: Negative for pain, redness and visual disturbance. Respiratory: Negative for cough, choking, chest tightness, shortness of breath and wheezing . Cardiovascular: Negative for chest pain, palpitations and leg swelling. Gastrointestinal: Positive for abdominal distention, abdominal pain and diarrhea. Negative for anal bleeding, blood in stool, constipation, nausea, rectal pain and vomiting. C/o heartburn Endocrine: Positive for heat intolerance. Negative for cold intolerance and polydipsia. Genitourinary: Negative for difficulty urinating, dysuria, frequency, hematuria, testicular pain and urgency. Musculoskeletal: Negative for arthralgias, back pain, gait problem, joint swelling, myalgia s, neck pain and neck stiffness. Skin: Negative for color change, rash and wound. Allergic/Immunologic: Negative for environmental allergies, food allergies and immunocompro mised state. Neurological: Positive for weakness. Negative for dizziness, tremors, seizures, syncope, li ght-headedness and headaches. Hematological: Negative for adenopathy. Does not bruise/bleed easily. Psychiatric/Behavioral: Negative for agitation, behavioral problems, confusion, dysphoric m ood, hallucinations and suicidal ideas. The patient is not nervous/anxious. Objective: BP 111/75 | Pulse 61 | Ht 1.88 m (6' 2") | Wt 99.1 kg (218 lb 6.4 oz) | BMI 28.04 kg/m Physical Exam Vital signs reviewed. General appearance: Appears well-developed and not in acute distress. Psychiatric: Appropriate affect, behavior and judgment appear normal. Neurological: Patient is alert and oriented. No focal neurologic deficits. No CN deficits . HEENT: Head: Normocephalic and Atraumatic. Mouth/Throat: Oropharynx is clear and moist. Eyes: No conjunctiva injection. EOM Intact. PERRL. No scleral icterus. Neck: Neck supple. No tracheal deviation present. No cervical adenopathy. Cardiovascular: Regular rate and rhythm, no murmur heard. Pulmonary/Chest: Clear bilaterally, no wheezes. Abdominal: Normal active bowel sounds. Soft, no mass or hepatosplenomegaly. Moderate ten derness across upper abdomen somewhat accentuated in the epigastric and left upper quadrant region. No involuntary guarding or rebound present. Musculoskeletal: Moves all limbs, No joint tenderness. No pedal edema. Skin: Skin is warm and dry. No rash noted. No erythema. No pallor. Mild palmar erythema bu t no other obvious stigmata of chronic liver disease. Labs: Labs from referral note 04/09/2019 (during acute presentation emergency room) WBC 12.3, hemoglobin 21.3, hematocrit 63.4, platelet 231 Albumin 4.3, total bili 1.5, AST 48, ALT 40, alk phos 136, lipase 1052 (normal 22-51) UA specific gravity greater than 1.030, positive for ketones Older labs in our system Lab Results Component Value Date NA 140 09/18/2016 K 5.1 (H) 09/18/2016 CL 107 09/18/2016 CO2 26 09/18/2016 ANIONGAP 12 09/18/2016 BUN 11 09/18/2016 CALCIUM 9.9 09/18/2016 Lab Results Component Value Date ALBUMIN 3.8 09/18/2016 BILITOT 0.5 09/18/2016 AST 42 09/18/2016 ALT 59 09/18/2016 Lab Results Component Value Date WBC 8.66 09/18/2016 HGB 16.2 09/18/2016 MCV 100.3 (H) 09/18/2016 LABPLAT 225 09/18/2016 Diagnostic imaging: CT ABDOMEN/PELVIS W CONTRAST CLINICAL DATA: Male, 53 years old, with acute abdominal pain. COMPARISON STUDIES: 04/12/2019. PROCEDURAL TECHNIQUE: Axial images are obtained at 5-mm intervals from the dome of the live r through the symphysis pubis after the injection of low osmolar nonionic intravenous contras t and without oral contrast. This examination was performed with automated exposure control i n order to keep patient radiation exposure to a minimum. FINDINGS: There is low attenuation through the liver consistent with fatty replacement. No focal lesion is noted. There is stranding of the fat surrounding the pancreatic head (series 2 image 56). This is consistent with pancreatitis. There is a left lower lobe 1.0 cm nodule (series 2 image 8) which is slightly larger than o n the prior exam. There was surrounding alveolar disease on the prior exam and this may repre sent a very small focus of round pneumonia. Continued surveillance is recommended. A repeat CT in 3-4 months is recommended. The liver, spleen, kidneys, adrenals, pancreas, gallbladder and bowel are otherwise unremarkable. The appendix is unremarkable (series 4 image 47) No adenopathy, ascites or free air is noted. IMPRESSION: 1. Fatty replacement of liver. 2. Pancreatitis involving the pancreatic head. 3. Left lower lobe nodule versus residual pneumonia. Continued surveillance is recommend ed. This report was ABDOMEN/PELVIS W CONTRAST at 04/12/2019 10:50 AM CLINICAL DATA: Abdominal infection. COMPARISON STUDIES: 04/09/2019; 06/21/2018 TECHNIQUE: CT of the abdomen and pelvis with low osmolar nonionic intravenous contrast. TECHNICAL NOTE: This examination was performed with automated exposure control to minimize patient radiation exposure. FINDINGS: LOWER THORAX: Dependent atelectasis. LIVER: Diffuse steatosis, as before. BILIARY: No acute abnormality. PANCREAS: In the inferior pancreatic head, there is again noted to be a region of ill-defin ed heterogeneous hypoattenuation, which spans approximately 1.5 cm and appears similar to the April 08 examination, new from the more remote prior studies. Regional inflammatory strandin g about the pancreas is decreased from prior. No ductal dilation or organized peripancreatic collection is identified. SPLEEN: Unremarkable. ADRENAL GLANDS: Unremarkable. KIDNEYS / URETERS: Unremarkable. AORTA: Atherosclerosis, without focal aneurysmal dilation. LYMPH NODES: Upper abdominal lymph nodes appear within reactive range. GI TRACT: Some reactive inflammation in the proximal duodenum appears stable to decreased i n prominence from the recent prior examination. A normal appendix is identified. No other foc al inflammatory process or evidence of obstruction. Diverticulosis is redemonstrated. PERITONEUM: Trace perihepatic and pelvic free fluid are now noted. No organized collection. No free air. PELVIC ORGANS / BLADDER: Relatively decompressed urinary bladder is poorly evaluated. No ac [place] abnormality identified. BONES AND SOFT TISSUES: Fat-containing inguinal hernias appear uncomplicated. IMPRESSION: Improved peripancreatic inflammatory change, consistent with evolving appearanc e of acute pancreatitis seen on the April 08 examination. There is residual parenchymal heterogeneity in the pancreatic head, without jc cyst or abscess formation. Trace perihepatic and pelvic free fluid or new from prior; no organized collection. This report was Data Review: Reviewed recent pertinent notes in electronic chart under everywhere tab Reviewed notes submitted with his referral Assessment and Plan: ICD-10-CM ICD-9-CM 1. Alcohol-induced acute pancreatitis without infection or necrosis K85.20 577.0 2. Alcohol-induced chronic pancreatitis (HCC) K86.0 577.1 3. Epigastric abdominal pain R10.13 789.06 4. Weight loss R63.4 783.21 5. Nausea R11.0 787.02 6. Anorexia R63.0 783.0 7. Smoker - Daily F17.200 305.1 8. Alcohol abuse F10.10 305.00 Patient with acute most likely on chronic pancreatitis since he has documented prior episod es. These are clearly alcohol induced. Imaging study reports available to me do not descri be changes of necrosis or large fluid collection. There is no prominent inflammatory change described around the stomach. Enzyme replacement has been tried already to see if this can reduce stimulation of the pancreas but really has not done much for the pain and unfortunat rhina not often successful. Not really concerned about pancreatic insufficiency at this point . Unfortunately this condition is an extremely painful process and I did herb counselor the patient that with continued drinking he could likely expect this to become a permanent part of his l ann trying to manage pain which becomes extremely difficult to do. Hopefully this will be s hort-lived which may be still multiple months in duration. There is unfortunately no direct ed therapy that is reliable other than avoiding aggravating factors in particular alcohol an d even smoking. He needs to be obtaining nutrition and hydration or as I counseled him he will end up hospi talized again and potentially could be worsening the pancreatitis. He still strongly wants to try and maintain at home and I recommended small frequent fluids ideally calorie containi ng such as Ensure and boost. Recommendations 1. Patient's pain is very real at this point and needs to be adequately controlled. This would have to be through a single provider typically PCP. At least in the short-term narcot ic abuse should not be a major concern since again this is an extremely painful process. 2. Frequent small volume oral intake even just liquids such as Boost or Ensure. 3. If unable to tolerate adequate oral intake for long or continues to lose weight he may need repeat hospitalization just to allow adequate nutrition. NG and NJ tube feeds rarely t olerated longer term or as outpatient due to discomfort from nasal passage. 4. If pain remains severe long-term meaning beyond 3 to 6 months then consideration of ref erral to a pancreatic center with EUS capability to at least attempt celiac block would be a consideration. In the current COVID-19 epidemic most centers are only performing urgent pr ocedures and not elective ones. 5. Continue omeprazole or other PPI for empiric treatment of any ulcers or reflux type eff ects that could be contributing. 6. Imaging studies do not suggest obstructive process of the stomach and not clear he woul d tolerate upper GI series right now. EGD currently being restricted again due to the COVID -19 pandemic at least in our area. 7. As others have recommended strongly emphasized the need to remain long-term abstinent f rom alcohol and strongly try to quit tobacco use. 8. Offered follow-up here but for now prefers to follow-up with his PCP which is fine. Thai Montano IV, M.D. [facility] Gastroenterology 05/03/2019 This note was dictated using Wikid[employer] voice recognition software. Document was reviewed at ti me of dictation but [id number] errors may be present. Please call with any questions or c larifications. TIME: New patient - total direct [id number] time of 45 minutes spent in reviewing inf ormation and discussion with greater than 50% of that time spent in counseling or coordinati ng of care. documented in thi s encounter Plan of Treatment Not on filedocumented as of this encounter Visit Diagnoses + + | Diagnosis | + + | Alcohol-induced acute pancreatitis without infection or necrosis - Primary | + + | Alcohol-induced chronic pancreatitis (HCC) Chronic pancreatitis | + + | Epigastric abdominal pain Abdominal pain, epigastric | + + | Weight loss Loss of weight | + + | Nausea Nausea alone | + + | Anorexia | + + | Smoker - Daily Tobacco use disorder | + + | Alcohol abuse Alcohol abuse, unspecified | + + documented in this encounter
--- OUTSIDE RECORDS SUMMARY | ~2019-08-11 | XMS | Encounter Summary ---
Demographics + + + | Address | [address] | | | [place] [address] | + + + | Home Phone | | + + + | Preferred Language | Unknown | + + + | Marital Status | Single | + + + | Mosque Affiliation | 1073 | + + + | Race | Unknown | + + + | Ethnic Group | Unknown | + + + Author + + + | Author | [facility] | | | and [place] | + + + | Organization | [facility] | | | and [...] | | | | | [place] [address] | | + + + + + Care Team Providers + +------+ + | Care Road Machine Runner Name | Role | Phone | + +------+ + PCP | Unavailable | + +------+ + Encounter Details +--------+ + + + + | Date | Type | Department | Care Team | Description | +--------+ + + + + | 08/28/ | [facility] | [facility] | Tino Neff, | | | 2007 | Encounter | MEDICINE [address] | [address] | | | | [place], [place] | [facility] [address] | | | | | [id number] | [place] [address] | | | | | [phone] | [phone] | | | | | | | [...]
--- OUTSIDE RECORDS SUMMARY | ~2019-08-11 | XMS | Encounter Summary ---
Demographics + + + | Address | [address] | | | [place] [address] | + + + | Home Phone | | + + + | Preferred Language | Unknown | + + + | Marital Status | Single | + + + | Judaism Affiliation | 1073 | + + + | Race | Unknown | + + + | Ethnic Group | Unknown | + + + Author + + + | Author | [facility] | | | and [place] | + + + | Organization | [facility] | | | and [place] | + + + | Address | Unknown | + + + | Phone | Unavailable | + + + Support + + + + + | Name | Relationship | Address | Phone | + + + + + | Robby Zamora | ECON | [address] | | | | | [place] [address] | | + + + + + Care Team Providers + +------+ + | Care Exhauster Name | Role | Phone | + +------+ + | Jann Jaramillo MD | PCP | | + +------+ + Reason for Visit + +--------+ + | Reason | Onset | Comments | | | Date | | + +--------+ + | Referral | 04/30/ | | | | 2020 | | + +--------+ + Encounter Details +--------+ + + + + | Date | Type | Department | Care Team | Description | +--------+ + + + + | 04/30/ | Telephone | [facility] | Awais Dustin | Referral | | 2019 | | GASTROENTEROLOGY | MD Carmella [address] | | | | | [address] | [place] [address] | | | | | [place], [place] | [phone] | | | | | [address] | | | | | | [phone] | | | +--------+ + + + [...] + + documented as of this encounter Miscellaneous Notes Telephone Encounter - Skye Mondragon 05/01/2019 12:32 PM PDTSee referral notes/flora lopez 05/01/2019 Skye Mondragon Division Commander elephone Encounter - Adriana Crowell - 05/01/2019 8:43 AM PDTTrenton, is calling regarding Referral and would like a call back. Additional Call Details: Returning call to schedule from referral If this is a symptom based call, was patient offered triage? Not Applicable If this is a symptom based call and you were unable to immediately transfer the call to a vale stevens fiber optics supervisor was caller made aware that if at any time he feels it is an emergency they laxmi uld call 911 or go to the nearest emergency room? not applicable documented in this encounter Plan of Treatment Not on filedocumented as of this encounter Visit Diagnoses Not on filedocumented in this encounter"
--- OUTSIDE RECORDS SUMMARY | ~2019-08-11 | XMS | Encounter Summary ---
Demographics + + + | Address | [address] | | | [place] [address] | + + + | Home Phone | | + + + | Preferred Language | Unknown | + + + | Marital Status | Single | + + + | Yarsanism Affiliation | 1073 | + + + | Race | Unknown | + + + | Ethnic Group | Unknown | + + + Author + + + | Author | [facility] | | | and [place] | + + + | Organization | [facility] | | | and [place] | + + + | Address | Unknown | + + + | Phone | Unavailable | + + + Support + + + + + | Name | Relationship | Address | Phone | + + + + + | Robby Zamora | ECON | [address] | | | | | [place] [address] | | + + + + + Care Team Providers + +------+ + | Care Seat Scooper Machine Name | Role | Phone | + [...] | unspecified | Cande, | [address], | | | | | Abnormal | [address] | [address] | | | | | weight loss | [place] | [place], | | | | | Nausea with | [address] | [place] [address] | | | | | vomiting, | [address] | Phone: | | | | | unspecified | [place], | [phone] | | | | | Epigastric | [place] [address] | Fax: | | | | | abdominal | Phone: | [phone] | | | | | tenderness | [phone] | | | | | | Procedures | Fax: | | | | | | Office Visit | [phone] | | +--------+--------+ + + + + Encounter Details +--------+---------+ + + + | Date | Type | Department | Care Team | Description | +--------+---------+ + + + | 02/15/ | Office | [facility] | Tan Mcrae MD | Diarrhea, | | 2018 | Visit | GASTROENTEROLOGY | [address], [place] | unspecified type | | | | [address] | [address] [place], [place] | (Primary Dx); Weight | | | | [address] [place], [place] | [phone] | loss, | | | | [address] | | unintentional; | | | | [phone] | | Seizure disorder | | | | | | ([facility]); History of | | | [...] + + + documented in this encounter H&P Notes Tan Mcrae MD - 02/15/2017 3:00 PM PST Robby Zamora is an 51 y.o. male. The patient is seen for multiple gastrointestinal tract concerns. Outside records are revi ewed. It is noted that the patient is a poor historian history is supplemented by his mothe r for very frequent basis The patient states that he has had "bad guts" for 6-8 months. Apparently the patient was h ospitalized by his report 2-3 months ago. It is unclear to me whether he was hospitalized a [facility] or at [facility] in [place]. He was hospitalized for diverticulitis. I do not have a copy of those records, Niether the patient or the patient' s mother know how the diagnosis of diverticulitis was determined i.e. CAT scan etc. the harinder ent apparently was discharged on Bentyl for abdominal pain and this had no effect with respe ct to the same. Although complains of abdominal pain which is generally diffuse. The pain starts in the epigastric area and then progresses to lower abdominal cramping and repetitiv e loose stools. He may have 3-5 loose stools a day. He has occasional nocturnal evacuation and occasional incontinence associated with passage of gas. Patient complains of nausea which he described as a tickling scraping sensation throughou t the entire abdomen. He has rare episodes of vomiting. He has severe anorexia and does no t tolerate the smell of food as it induces nausea. This is particularly true with any meat, spicy foods. Patient has had a decrease in weight from 230 down to 209 pounds. His dietar y intake yesterday included a boost and half a banana for breakfast he had a small portion o f scrambled eggs and a quarter of a sandwich for lunch and dinner had small sirloin steak wi th salad. Supplements his intake throughout the day with warm tea with honey. Patient by h is report had an upper endoscopy colonoscopy [address] Barrera in [place]. No abnormalities were noted. In addition to the Bentyl the patient has been on Zofran and omeprazole which he just states the omeprazole has had no effect on his symptoms. According to the notes reviewed the patient's diarrhea and abdominal pain have been attributed to alc ohol abuse. He states that he has cut down on his alcohol abuse except for 1 day a week. L aboratory studies done in December 2016 showed a normal CBC except for slightly elevated whi te count at 12.7 MCV was normal occult blood was negative CT scan done through the emergency room at [facility] on 12/01/2016 showed mild diverticulosis without evidence of divertic ulitis. Steatosis was noted with respect to the liver. CMP done 12/01/2016 was within norm al limits except for elevation of triglycerides and cholesterol In addition to alcohol abuse substance abuse patient has a history of bipolar disorder. Ac cording to the patient's mother he was on a high dose of Seroquel(?). Although I could not find documentation of the same in the charts that were reviewed. By the mother's history th e patient became profoundly forgetful. while on that medication and has since been weaned of f the same. This has been done under the guidance of a psychiatrist by [facility]. The patient also has a history of seizure disorder and is on Keppra. Medication s are reviewed the patient has been on omeprazole for a long period of time and denies that that medication has had any effect on the patient's symptoms of diarrhea. The patient is on Zofran for his nausea which she states is effective Past Medical History: Diagnosis Date Anxiety and depression Diverticulitis Functional diarrhea Hearing deficit Hypertension LLQ abdominal tenderness Allergies: No Known Allergies Active Problems: * No active hospital problems. * Blood pressure 104/78, pulse 62, resp. rate 16, height 1.88 m (6' 2"), weight 98 kg (216 lb 0.8 oz). Review of Systems Constitutional: Positive for weight loss. HENT: Positive for hearing loss and tinnitus. Gastrointestinal: Positive for abdominal pain, blood in stool, diarrhea, heartburn, nausea and vomiting. Neurological: Positive for seizures. Psychiatric/Behavioral: Positive for depression and substance abuse. The patient is nervous /anxious. All other systems reviewed and are negative. Physical Exam Constitutional: He appears well-developed and well-nourished. No distress. The patient is a poor historian holds his abdomen occasionally during the interview HENT: Head: Normocephalic and atraumatic. Right Ear: External ear normal. Left Ear: External ear normal. Nose: Nose normal. Mouth/Throat: Oropharynx is clear and moist. No oropharyngeal exudate. Eyes: Conjunctivae and EOM are normal. Pupils are equal, round, and reactive to light. Righ t eye exhibits no discharge. Left eye exhibits no discharge. No scleral icterus. Neck: Normal range of motion. Neck supple. No JVD present. No tracheal deviation present. Cardiovascular: Normal rate, regular rhythm, normal heart sounds and intact distal pulses. Exam reveals no gallop and no friction rub. No murmur heard. Pulmonary/Chest: Effort normal and breath sounds normal. No stridor. No respiratory distres s. He has no wheezes. He has no rales. He exhibits no tenderness. Abdominal: Soft. Bowel sounds are normal. He exhibits no distension and no mass. There is t enderness. There is no rebound and no guarding. Complains of pain to palpation in the epigastrium and left upper quadrant but easily distra cted. Normal pain to palpation with tensing of the abdominal wall muscles Lymphadenopathy: He has no cervical adenopathy. Skin: He is not diaphoretic. Nursing note and vitals reviewed. 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 There were told that it is possible that even if we do further testing the etiology of the patient's symptomatolo gy may not be entirely elucidated. There were also told that I suspect that there is a stro ng central input with respect to the patient's perception of his symptomatology. Given the above they're willing to proceed with upper endoscopy with duodenal biopsy colono scopy with right and left colonic biopsies obtaining stool specimens etc. And if its risks of the procedures were explained to the patient and they concur and we will proceed with the same as an outpatient with propofol sedation given past history of alcohol, substance abuse seizure disorder Tan Mcrae 02/16/2017 documented in this encounter Plan of Treatment [...]
--- OUTSIDE RECORDS SUMMARY | ~2019-08-11 | XMS | Encounter Summary ---
Demographics + + + | Address | [address] | | | [place] [address] | + + + | Home Phone | | + + + | Preferred Language | Unknown | + + + | Marital Status | Single | + + + | Jewish Affiliation | 1073 | + + + | Race | Unknown | + + + | Ethnic Group | Unknown | + + + Author + + + | Author | [facility] | | | and [place] | + + + | Organization | [facility] | | | and [facility] | + + + | Address | Unknown | + + + | Phone | Unavailable | + + + Support + + + + + | Name | Relationship | Address | Phone | + + + + + | Robby Zamora | ECON | [address] | | | | | [place] [address] | | + + + + + Care Team Providers + +------+ + | Care Clinical Asst Name | Role | Phone | + +------+ + | Jann Jaramillo MD | PCP | | + +------+ + Reason for Visit +--------+--------+ + | Reason | Onset | Comments | | | Date | | +--------+--------+ + | Other | 03/16/ | Questions about test results and possible scheduling | | | 2017 | | +--------+--------+ + Encounter Details +--------+ + + + + | Date | Type | Department | Care Team | Description | +--------+ + + + + | 03/16/ | Telephone | [facility] | Tan Mcrae MD | Other (Questions | | 2018 | | GASTROENTEROLOGY | [address], [place] | about test results | | | | [address] | [address] [place] | and possible | | | | [address] [place], [place] | [address] | scheduling) | | | | [address] | | | | | | [phone] | | | +--------+ + + + [...] this encounter Miscellaneous Notes Telephone Encounter - Gely Edwards RN - 03/17/2017 10:45 AM PSTPatient's mother re ports patients complains of feeling queezy. She wonders if it the seizure medications or the other psych meds. She will make a f/u appt with his PCP. He has been taking the omeprazole with his other meds in the morning. She will have him take the omeprazole on an empty stom ach and then 30 minutes later take his other meds with food. Vera states she is trying to keep him independent. He has manic depression and she states his brain doesn't work very we ll. Reviewed findings of egd and colonoscopy with her. elephone Encounter - Torie Torres - 03/17/2017 1 0:16 AM PSTSherry called back, should be home for the next few hours. Please call again.Elec tronically signed by Torie Torres at 03/17/2017 10:18 AM PSTTelephone Encounter - Gely Edwards RN - 03/16/2017 5:04 PM PSTSpoke with patient's father and he states Vera just left. He will have her call tomorrow. elephone Encounter - Torie Torres - 03/16/2017 2:59 PM PSTPa ada's mother called with questions about test results previously discussed and whether murtaza koehler needs a follow-up appointment with Dr Mcrae to go over results. Please contact her at . documented in this encounter Plan of Treatment Not on filedocumented as of this encounter Visit Diagnoses Not on filedocumented in this encounter"
--- OUTSIDE RECORDS SUMMARY | ~2019-08-11 | XMS | Encounter Summary ---
Demographics + + + | Address | [address] | | | [place] [address] | + + + | Home Phone | | + + + | Preferred Language | Unknown | + + + | Marital Status | Single | + + + | Islam Affiliation | 1073 | + + + | Race | Unknown | + + + | Ethnic Group | Unknown | + + + Author + + + | Author | [facility] | | | and [place] | + + + | Organization | [facility] | | | and [place] | + + + | Address | Unknown | + + + | Phone | Unavailable | + + + Support + + + + + | Name | Relationship | Address | Phone | + + + + + | Robby Zamora | ECON | [address] | | | | | [place] [address] | | + + + + + Care Team Providers + +------+ + | Care Anchor Operator Name | Role | Phone | [...] [place] | | | | | | [address] | | | | | | [phone] | | | +--------+ + + + [...]
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
--- OUTSIDE RECORDS SUMMARY | ~2019-08-11 | XMS | Encounter Summary ---
Demographics + + + | Address | [address] | | | [place] [address] | + + + | Home Phone | | + + + | Preferred Language | Unknown | + + + | Marital Status | Single | + + + | Scientology Affiliation | [id number] | + + + | Race | Unknown | + + + | Ethnic Group | Unknown | + + + Author + + + | Author | [facility] | | | and [place] | + + + | Organization | [facility] | | | and [...] | | | | | [place] [address] | | + + + + + Care Team Providers + +------+ + | Care Machine Rebuilder Name | Role | Phone | + [...] | | | | | | | PA | | | | | | | ESOPHAGOGAST | | | | | | | RODUODENOSCO | | | | | | | PY TRANSORAL | | | | | | | DIAGNOSTIC | | | | | | | PA EGD | | | | | | | TRANSORAL | | | | | | | BIOPSY | | | | | | | SINGLE/MULTI | | | | | | | PLE PA | | | | | | | COLONOSCOPY | | | | | | | FLX DX | | | | | | | W/COLLJ SPEC | | | | | | | WHEN PFRMD | | | | | | | PA | | | | | | | COLONOSCOPY | | | | | | | W/BIOPSY | | | | | | | SINGLE/MULTI | | | | | | | PLE PA | | | | | | | COLSC FLX | | | | | | | W/RMVL OF | | | | | | | TUMOR POLYP | | | | | | | LESION SNARE | | | | | | | TQ PA | | | | | | | [...] + + | 02/23/ | Hospital | [facility] | Tan Mcrae MD | Functional diarrhea | | 2018 | Encounter | [facility] | [address], [place] | (Primary Dx); | | | | [address] | [address] [place], [place] | Epigastric pain | | | | [place], [place] | [address] | | | | | [phone] | | | | | | [phone] | | | +--------+ + + + [...] lung problems. Your ane sthesiologist or nurse electronics engineering technologist will discuss the risks with you. Date Last Reviewed: 01/09/201619990301-5786 [facility]. [address] [place] [id number]. All righ ts reserved. This information is [...] +---------+--------+ + documented as of this encounter H&P Notes Tan Mcrae MD - 02/23/2017 11:43 AM PSTThe patient has no questions consent forms are signed we'll proceed with upper endoscopy for evaluation of abdominal pain diarrheaGegei grace signed by Tan Mcrae MD at 02/23/2017 11:45 AM Tan Booker MD - 02/15/2017 3:00 PM PST Robby [...] to me whether he was hospitalized a [facility] or at [facility] in [place]. He was hospitalized for diverticulitis. I do [...] [address] Barrera in [place]. No abnormalities were noted. In addition to [...] scan done through the emergency room at [facility] on 12/01/2016 showed mild diverticulosis without evidence [...] the guidance of a psychiatrist by telecommunication fr minna Norman. The patient also has a history of [...] Tan Mcrae 02/16/2017 documented in this encounter Miscellaneous Notes Op Note - Tan Mcrae MD - 02/23/2017 12:28 PM PSTUpper endoscopy was remarkable for sl ightly irregular Z line at 38 cm. Multiple distal esophageal biopsies were obtained. Gastr ic cavity showed some minor gastritis. H. pylori biopsy was obtained duodenal mucosa appear ed normal but due to history of diarrhea duodenal biopsies were obtained for celiac sprue pr otocol. Colonoscopy visually appeared normal. Stool studies were obtained right and left c olonic biopsies were obtained looking for microscopic lymphocytic colitis. 2 polyps were re moved from the transverse colon via polypectomy technique. Patient with discharged with pos t polypectomy instructions. He'll continue on his current medical regimen pending pathology -C Instructions Provat ion - Tan Mcrae MD - 02/23/2017 11:35 AM PSTDischarge Instructions for Upper Endoscopy Patient: Robby Zamora : 1965 Acct: [id number] Exam Date: Thursday, February 23, 2017 Doctor: Tan Mcrae MD The chances of difficulty following this procedure are minimal. The following instructions will assist you in your recovery. 1. Do Not eat or drink anything for 1 hour. Try sips of water first. If tolerated, resume your regular diet or one recommended by your physician. 2. Do not drive, operate machinery, make critical decisions, or do activities that require coordination or balance for 24 hours. 3. You may experience a sore throat for 24 - 48 hours. You may use throat lozenges or gargle with warm salt water to relieve the discomfort. 4. Because air was put into your stomach druing the procedure, you may experience some belching. 5. Do not use any medication containing aspirin for 10 days, unless otherwise directed by your physician. 6. Sometimes the medications given to you druing the exam can aggravate the veins. The chemical irritation can cause inflammation or pain along the arm with redness, swelling and warmth. This does not mean there is an infection. You can treat the affected area by applying warm, wet compresses (towels) 4 times a day for 20 minutes at a time until inflammation is resolved 7. Report to your doctor: Chills and/or fever over 100 Persistent vomiting or vomiting with blood/nasal regurgitation Severe abdominal pain, other than gas cramps Severe chest pain Black, tarry stools You may reach your physician at Work: . If unable to reach your physician, call [facility] Emergency Department at Ext. [phone] Your doctor recommends these additional instructions: You have a contact number available for emergencies. The signs and symptoms of potential delayed complications were discussed with you. You may return to normal activities tomorrow. Written discharge instructions were provided to you. You are being discharged to home. Eat a mechanical soft diet for three days. Continue your present medications. Do not take any aspirin, ibuprofen (including Advil, Motrin or Nuprin), naproxen (including Aleve), or any other non-steroidal anti-inflammatory drugs for 7 days after your polyp removal. We are waiting for your pathology results. Your physician has recommended a colonoscopy today. Return to your primary care physician as previously scheduled. Telephone your GI clinic if symptoms are present. These instructions have been explained to the patient and/or escort. A copy has been given to the patient/escort. Nurse Signature Patient Signature Escort Signature Date Tan Mcrae MD 02/23/2017 12:34:44 PM This report has been signed electronically.Electronically signed by Tan Mcrae MD at 12:35 PM PSTD-C Instructions Provation - Tan Mcrae MD - 02/23/2017 11:34 AM P STDischarge Instructions for Colonoscopy Exams Patient: Robby Zamora : 1965 Acct: [id number] Exam Date: Thursday, February 23, 2017 Doctor: Tan Mcrae MD You have had an examination of the gastrointestinal tract. The chances of difficulty following this procedure are minimal. The following instructions will assist you in your recovery. ACTIVITIES: Rest quietly until sedation wears off. DO NOT drive a motor vehicle or operate machinery for 24 hours after sedation. Be cautious making critical decisions for 24 hours after sedation. DIET: If throat has been sprayed, do not eat or drink for 1 hour after. Start with a swallow of tap water, if you experience any lack of sensation in your throat, wait another 30 - 60 minutes and start with water again. Once swallowing has returned to normal you may resume your usual diet unless otherwise instructed by your physician. DISCOMFORT: If you had a bowel exam, you may have some abdominal discomfort from the air put into your bowel during the exam. Moving about will help you pass this air. Sometimes the medications given to you during the exam can aggravate the veins. The chemical irritation can cause inflammation or pain along the arm with redness, swelling and warmth. This does not mean there is an infection. You can treat the affected area by applying warm,wet compresses (towels) 4 times a day for 20 minutes at a time until inflammation is resolved. REPORT TO YOUR DOCTOR: Unusual abdominal pain Chest pain or unusual shortness of breath Shoulder pain Nausea, vomiting Fever over 100 degrees, chills Signs of rectal bleeding (red or black stools) Any concern you have resulting from procedure You may reach your physician at Work: . If unable to reach your physician, call [facility] Emergency Department at Ext. [phone] Your doctor recommends these additional instructions: You have a contact number available for emergencies. The signs and symptoms of potential delayed complications were discussed with you. You may return to normal activities tomorrow. Written discharge instructions were provided to you. You are being discharged to home. Eat a mechanical soft diet for three days. Continue your present medications. Do not take any aspirin, ibuprofen (including Advil, Motrin or Nuprin), naproxen (including Aleve), or any other non-steroidal anti-inflammatory drugs for 7 days after your polyp removal. We are waiting for your pathology results. Your physician has recommended a repeat colonoscopy for surveillance based on pathology results. Return to your primary care physician as previously scheduled. Telephone your GI clinic for pathology results in one week. These instructions have been explained to the patient and/or escort. A copy has been given to the patient/escort. Nurse Signature Patient Signature Escort Signature Date Tan Mcrae MD 02/23/2017 12:38:57 PM This report has been signed electronically.Electronically signed by Tan Mcrae MD at 12:39 PM PSTdocumented in this encounter Plan of Treatment Not [...] + + | Performed at: [facility] - [facility] [address], | REFERENCE LAB | | [place], [place] [id number] Hair Baler: Romulo Reyes MD, Phone: | [facility] | | [phone] | | + + + + + + + + | Performing | Address | City/State/Zipcode | Phone Number | | Organization | | | | + + + + + | REFERENCE LAB | [address] | [place], [place] | [phone] | | [facility] | Drive [facility] | [address] | | + + + + + [...] [address] | [place] | [phone] | | [facility] | | [address] | | | - LABORATORY | | [...] ST. | [address] | [place], [place] | [phone] | | [facility] | | [address] | | | - LABORATORY | | [...] [address] | [place] | [phone] | | [facility] | | [address] | | | - LABORATORY | | [...] + + | Performed at: 01 - [facility] [address], | REFERENCE LAB | | [place], [place] [id number] Hair Baler: Romulo Reyes MD, Phone: | [facility] | | [phone] | | + + + + + + + + | Performing | Address | City/State/Zipcode | Phone Number | | Organization | | | | + + + + + | REFERENCE LAB | [address] | [place], [place] | [phone] | | [facility] | [address] [place] | [address] | | + + + + + [...] Qual | a corrected result. | | [facility] | | | | Previous result was [...] [address] | [place] | [phone] | | [facility] | | [address] | | | - LABORATORY | | [...] + + | [address] | [address] | [place] | [phone] | | [facility] | | [address] | | | - LABORATORY | | [...] | [address] | [place] | [phone] | | [facility] | | [address] | | | - LABORATORY | | [...] | | | Antigen, | | | [facility] | | | Stool | | | [...] [address] | [place] | [phone] | | [facility] | | [address] | | | - LABORATORY | | [...] | r pylori Ag | | | [facility] | | [...] [address] | [place] | [phone] | | [facility] | | [address] | | | - LABORATORY | | | | + + + + + EGD (02/23/2017 11:35 AM PST) + + | Specimen | + + | | + + + + -+ | Narrative | Performed At | + + -+ | | [facility] | | GastroenterologyPatient Name: Robby SosaPadmaja Date: 02/23/2017 | [facility] | | 11:35 AMMRN: [id number] #: [id number] of : | | | 1965Admit Type: AmbulatoryAge: 51Room: [facility] 01Gender: MaleNote | | | Status: FinalizedAttending MD: Tan Mcrae , MDProcedure: | | | Upper GI endoscopyIndications: Epigastric abdominal pain, | | | DiarrheaProviders: Tan Mcrae MD, Nat Larson | | | BRADLEY Lucas, Angella Luciano, Classroom Paraprofessional, | | | Robbie Hadley MD (Anesthesia [...] | | | the anesthesiologist and the lead maintenance technician in the endoscopy suite. | | [...] | | 11:47:04 AMScope Out: 11:55:40 AM [facility] | | | [place], [address] [place] [address] | | | - Mechanical soft diet [...] |Scope Out: 11:55:40 AM | | | [facility], [address] [facility] [place], [place] | | | [address] | | + + -+ + +---------+ [...] 02/23/2017 | [facility] | | 11:34 AMMRN: [id number] #: [id number] of : | | | 1965Admit Type: AmbulatoryAge: 51Room: [facility] 01Gender: MaleNote | | | Status: FinalizedAttending MD: Tan Mcrae , [facility]cedure: | | | ColonoscopyIndications: Clinically significant diarrhea of | | | unexplained originProviders: Tan Mcrae MD, Nat | | | Neo Lucas RN, Angella Wolf, | | | Classroom Paraprofessional, Robbie Hadley MD (Anesthesia | | | [...] | | 12:01:31 PMScope Out: 12:23:04 PM [facility] | | | Center, [address] [place] [address] | | | - Continue present medications. [...] |Scope Out: 12:23:04 PM | | | [facility], [address] [place] [address] | | | [address] | | + + -+ + +---------+ + + | Performing | Address | City/State/Unm Cancer Centercode | Phone Number | | Organization [...] no | | | significant diagnostic abnormality. CLR:h:C2NR GROSS | | | DESCRIPTION: Received in five parts. A. The specimen is labeled | | | "Dolphin, Robby" and designated "duodenal bx" on the requisition. | | | Received in formalin are five pink-griffin colored tissue fragments, | | | 0.2-0.5 cm, all into (A1). B. The specimen is labeled "Dolphin, | | | Robby" and designated "distal esophageal bx" on the requisition. | | | Received in formalin are eight cream to griffin colored tissue fragments, | | | 0.15-0.5 cm, all into (B1). C. The specimen is labeled "Dolphin, | | | Robby" and designated "transverse colon polyps" on the requisition. | | | Received in formalin are two pink-griffin colored tissue fragments, | | | 0.4-0.45 cm, all into (C1). D. The specimen is labeled "Dolphin, | | | Robby" and designated "random right colon bx" on the requisition. | | | Received in formalin are five griffin colored tissue fragments, 0.25-0.6 | | | cm, all into (D1). E. The specimen is labeled "Dolphin, Robby" | | | and designated "random left colon bx" on the requisition. Received in | | | formalin are eight griffin colored tissue fragments, 0.15-0.45 cm, all | | | into (E1). yt:GILA:nicole PERFORMING LABORATORY: Tissue processing | | | and slide preparation were performed by [facility], [address] [facility], [place] [address] (Camp[place] Associate: Pk | | | Anne Sapp CLIA#: [id number]). Professional interpretation was | | | performed by [facility], [address], [facility] | | | [place] [address] ([employer] Associate: Pk Sapp M.D.; CLIA#: | | | [id number]). Diagnostician: Melo Shelley MD | | | [...]
--- OUTSIDE RECORDS SUMMARY | ~2019-08-11 | XMS | Encounter Summary ---
Demographics + + + | Address | [address] | | | [place] [address] | + + + | Home Phone | | + + + | Preferred Language | Unknown | + + + | Marital Status | Single | + + + | Episcopal Affiliation | 1073 | + + + | Race | Unknown | + + + | Ethnic Group | Unknown | + + + Author + + + | Author | [facility] | | | and [place] | + + + | Organization | [facility] | | | and [place] | + + + | Address | Unknown | + + + | Phone | Unavailable | + + + Support + + + + + | Name | Relationship | Address | Phone | + + + + + | Robby Zamora | ECON | [address] | | | | | [place] [address] | | + + + + + Care Team Providers + +------+ + | Care Title Specialist Name | Role | Phone | [...] [place] | | | | | | [address] | | | | | | [phone] | | | +--------+ + + + [...]
--- OUTSIDE RECORDS SUMMARY | ~2019-08-11 | XMS | Encounter Summary ---
Demographics + + + | Address | [address] | | | [place] [address] | + + + | Home Phone | | + + + | Preferred Language | Unknown | + + + | Marital Status | Single | + + + | Pentecostalism Affiliation | 1073 | + + + | Race | Unknown | + + + | Ethnic Group | Unknown | + + + Author + + + | Author | [facility] | | | and [place] | + + + | Organization | [facility] | [...] | | | | | [place] [address] | | + + + + + Care Team Providers + +------+ + | Care Billing Control Clerk Name | Role | Phone | [...] | | | | | | | IA | | | | | | | ESOPHAGOGAST | | | | | | | RODUODENOSCO | | | | | | | PY TRANSORAL | | | | | | | DIAGNOSTIC | | | | | | | IA EGD | | | | | | | TRANSORAL | | | | | | | BIOPSY | | | | | | | SINGLE/MULTI | | | | | | | PLE IA | | | | | | | COLONOSCOPY | | | | | | | FLX DX | | | | | | | W/COLLJ SPEC | | | | | | | WHEN PFRMD | | | | | | | IA | | | | | | | COLONOSCOPY | | | | | | | W/BIOPSY | | | | | | | SINGLE/MULTI | | | | | | | PLE IA | | | | | | | COLSC FLX | | | | | | | W/RMVL OF | | | | | | | TUMOR POLYP | | | | | | | LESION SNARE | | | | | | | TQ IA | | | | | | | [...] + + | 02/23/ | Surgery | [facility] | Tan Mcrae MD | EGD | | 2018 | | MED CTR [facility] INTRA OP | [address], [place] | | | | | [address] | [address] | | | | | [place] | [address] | | | | | [address] | | | | | | [phone] | | | +--------+---------+ + + + [...] + + + | Blood Pressure | 106/80 | 02/23/2017 11:03 AM | | | | | PST | | + + + + + | Pulse | 61 | 02/23/2017 11:03 AM | | | | | PST | | + + + + + | Temperature | 36.7 C (98.1 F) | 02/23/2017 11:03 AM | | | | | PST | | + + + + + | Respiratory Rate | 18 | 02/23/2017 11:03 AM | | | | | PST | | + + + + + | Oxygen Saturation | 98% | 02/23/2017 11:03 AM | | | [...] in this encounter Discharge Instructions Instructions Ariana Falcon, RN - 02/23/2017Formatting of this note might [...] lung problems. Your ane sthesiologist or nurse bulk plant supervisor will discuss the risks with you. Date Last Reviewed: 01/09/201619996935-2563 [employer]. [address] [place] [address], [place] [address]. All righ ts reserved. This information is [...] upper endoscopy for evaluation of abdominal pain diarrheaElectroni grace signed by Tan Mcrae MD at 02/23/2017 11:45 AM Tan Booker MD - 02/15/2017 3:00 PM PST Robby Zamora is an 51 y.o. male. The patient is seen for multiple gastrointestinal tract concerns. Outside records are revi ewed. It is noted that the patient is a poor historian history is supplemented by his eddye r for very frequent basis The patient states that he has had "bad guts" for 6-8 months. Apparently the patient was h ospitalized by his report 2-3 months ago. It is unclear to me whether he was hospitalized a t [facility] or at [facility] in [place]. He was hospitalized for diverticulitis. I do [...] [address] Barrera in [place]. No abnormalities were noted. In addition to [...] scan done through the emergency room at [facility] on 12/01/2016 showed mild diverticulosis without evidence [...] Endoscopy Patient: Robby Zamora : 1965 Acct: [id number] Exam Date: Thursday, February 23, 2017 Doctor: [...] If unable to reach your physician, call [facility] Emergency Department at Ext. 2500 Your [...] Exams Patient: Robby Zamora : 1965 Acct: [id number] Exam Date: Thursday, February 23, 2017 Doctor: [...] If unable to reach your physician, call [facility] Emergency Department at Ext. [address] Your [...] (HCC) | | | | | | (G40.904), alcohol | | | | | | [...] (HCC) | | | | | | (G40.903), alcohol | | | | | | [...] + | Performed at: 01 - [facility] [address], | REFERENCE LAB | | [place], [place] [id number] Net Development Manager: Romulo Reyes MD, Phone: | ABI RETANA | | [phone] | | + + + + + + + + | Performing | Address | City/State/Zipcode | Phone Number | | Organization | | | | + + + + + | REFERENCE LAB | [address] | [place], [place] | [phone] | | [facility] | [address] | [address] | | + + + + + Campylobacter Ag,Qual (02/23/2017 12:04 PM PST) + + + + + + | Component | Value | Ref Range | Performed | Pathologist | | | | | At | Signature | + + + + + + | Campylobact | Negative | Negative | [facility] | | | er AG, Qual | | | [facility] | | [...] ST. | [address] | [place] | [phone] | | [facility] | | [address] | | | - LABORATORY | | [address] | [place] | [phone] | | [facility] | | [address] | | | - LABORATORY | | [...] + | [facility] | [address] | [place] | [phone] | | [facility] | | [address] | | | - LABORATORY | | [...] + | Performed at: 01 - [facility] [address], | REFERENCE LAB | | [place], [place] [id number] Net Development Manager: Romulo Reyes MD, Phone: | [facility] | | [phone] | | + + + + + + + + | Performing | Address | City/State/Zipcode | Phone Number | | Organization | | | | + + + + + | REFERENCE LAB | [address] | [place], [place] | [phone] | | [facility] | [address] | [address] | | + + + + + [...] [address] | [place] | [phone] | | [facility] | | [address] | | | - LABORATORY | | [...] ST. | [address] | [place] | [phone] | | [facility] | | [address] | | | - LABORATORY | | [...] | + + + + + | [facility] | [address] | [place] | [phone] | | [facility] | | [address] | | | - LABORATORY | | [address] | [place] | [phone] | | [facility] | | [address] | | | - LABORATORY | | [...] [address] | [place] | [phone] | | [facility] | | [address] | | | - LABORATORY | | | | + + + + + EGD (02/23/2017 11:35 AM PST) + + | Specimen | + + | | + + + + -+ | Narrative | Performed At | + + -+ | | [facility] | | GastroenterologyPatient Name: Robby Vieyraednoemi Date: 02/23/2017 | [facility] | | 11:35 AMMRN: [id number] #: [id number] of : | | | 1965Admit Type: AmbulatoryAge: 51Room: [facility] 01Gender: MaleNote | | | Status: FinalizedAttending MD: Tan Mcrae , [facility]cedure: | | | Upper GI endoscopyIndications: Epigastric abdominal pain, | | | DiarrheaProviders: Tan Mcrae MD, Nat Larson | | | BRADLEY Lucas, Angella Wolf, Strip Picker, | | | Robbie Hadley MD (Anesthesia [...] | | | the anesthesiologist and the solar installer technician in the endoscopy suite. | | [...] Out: 11:55:40 AM [facility] | | | [place], [address] [place] [address] | | | - Mechanical soft diet [...] |Scope Out: 11:55:40 AM | | | [facility], [address] , [place], [place] | | | [address] | | + + -+ + +---------+ [...] 02/23/2017 | [facility] | | 11:34 AMMRN: [id number] #: [id number] of : | | | 1965Admit Type: AmbulatoryAge: 51Room: [facility] 01Gender: MaleNote | | | Status: FinalizedAttending MD: Tan Mcrae , [facility]cedure: | | | ColonoscopyIndications: Clinically significant diarrhea of | | | unexplained originProviders: Tan Mcrae MD, Nat | | | Neo Lucas RN, Angella Wolf, | | | Strip Picker, Robbie Hadley MD (Anesthesia | | | [...] Out: 12:23:04 PM [facility] | | | [place], [address] [place] [address] | | | - Continue present medications. [...] |Scope Out: 12:23:04 PM | | | [facility], [address] [facility], [place] | | | [address] | | + + -+ + +---------+ [...] no | | | significant diagnostic abnormality. CLR:[facility]:C2NR GROSS | | | DESCRIPTION: Received in five parts. A. The specimen is labeled | | | "Acushnet, Robby" and designated "duodenal bx" on the requisition. | | | Received in formalin are five pink-griffin colored tissue fragments, | | | 0.2-0.5 cm, all into (A1). B. The specimen is labeled "Acushnet, | | | Robby" and designated "distal esophageal bx" on the requisition. | | | Received in formalin are eight cream to griffin colored tissue fragments, | | | 0.15-0.5 cm, all into (B1). C. The specimen is labeled "Acushnet, | | | Robby" and designated "transverse colon polyps" on the requisition. | | | Received in formalin are two pink-griffin colored tissue fragments, | | | 0.4-0.45 cm, all into (C1). D. The specimen is labeled "Acushnet, | | | Robby" and designated "random right colon bx" on the requisition. | | | Received in formalin are five griffin colored tissue fragments, 0.25-0.6 | | | cm, all into (D1). E. The specimen is labeled "Acushnet, Robby" | | | and designated "random left colon bx" on the requisition. Received in | | | formalin are eight griffin colored tissue fragments, 0.15-0.45 cm, all | | | into (E1). yt:HJ:[facility] PERFORMING LABORATORY: Tissue processing | | | and slide preparation were performed by [facility], [address] | [address], [place] [address] (Manager Alliance: Pk | | Adeline Sapp M.D. CLIA#: [id number]). Professional interpretation was | | | performed by [facility], [address], [facility] | | | [place] [address] (Manager Alliance: Pk Sapp M.D.; CLIA#: | | | [id number]). Diagnostician: Melo Shelley MD | | | Pathologist Electronically Signed 02/24/2017 | | + + + + +---------+ + + | Performing | Address | City/State/[facility]code | Phone Number | | Organization | [...]
--- OUTSIDE RECORDS SUMMARY | ~2019-08-11 | XMS | Encounter Summary ---
Demographics + + + | Address | [address] | | | [place] [address] | + + + | Home Phone | | + + + | Preferred Language | Unknown | + + + | Marital Status | Single | + + + | Mormon Affiliation | 1073 | + + + | Race | Unknown | + + + | Ethnic Group | Unknown | + + + Author + + + | Author | [facility] | | | and [place] | + + + | Organization | [facility] | | | and [place] | + + + | Address | Unknown | + + + | Phone | Unavailable | + + + Support + + + + + | Name | Relationship | Address | Phone | + + + + + | Robby Zamora | ECON | [address] | | | | | [place] [address] | | + + + + + Care Team Providers + +------+ + | Care Aboriginal Home School Liaison Officer Name | Role | Phone | [...] 2016 | | GASTROENTEROLOGY | [address], [place] | | | | | [address] [place] | [address] [place] | | | | | [address] [place], [place] | [address] | | | | | [address] | | | | | | [phone] | | | +--------+ + + + [...] +--------+ + + + | EXTERNAL LAB: [facility] | Routin | 01/07/2017 | | Results [...]
--- OUTSIDE RECORDS SUMMARY | ~2019-08-11 | XMS | Clinical Summary ---
Demographics + + + | Address | [address] | | | [place] [address] | + + + | Home Phone | | + + + | Preferred Language | Unknown | + + + | Marital Status | Single | + + + | Yarsani Affiliation | 1073 | + + + | Race | Unknown | + + + | Ethnic Group | Unknown | + + + Author + + + | Author | [facility] | | | and [place] | + + + | Organization | [facility] | | | and [place] | + + + | Address | Unknown | + + + | Phone | Unavailable | + + + Support + + + + + | Name | Relationship | Address | Phone | + + + + + | Robby Zamora | ECON | [address] | | | | | [place] [address] | | + + + + + Care Team Providers + +------+ + | Care Repair Servicer Name | Role | Phone | + [...] | + + + +---------+------+------+-------+ | CREON [phone] | Take 1 capsule by | | [...] Anxiety | 08/23/2013 | + + + Family History + + +------+ + | [...] on file | | + + + Last Filed Vital Signs + [...] Health Maintenance | Due Date | Last | Comments | | | | Done | | + + + + + [...] + + + | Vaccine: | | 10/08/19 | | | Dtap/Tdap/Td (6 - | 7 | 17, | | | Td) | | 04/19/18 | | | | | 82, | | | | | 04/22/18 | | | | | 72, | | | | | Addition | | | | | al | | | | | history | | | | | exists | | + + + + + | Colorectal Cancer | | 02/23/19 | | | Screening | 8 | 18, | | | (Colonoscopy) | | 10/02/19 | | | | | 16 | | + + + + + | Vaccine: Influenza | Completed | 12/03/19 | | | | | 19, | | | | | 11/24/19 | | | | | 17 | | + + + + + [...] | [employer] | MODA | [id number] | 01/20/ | [phone] | | Medica | | MEDICAID HMO | HEALTH | | 2017-P | 1 | | id | | | MDCD | | resent | | | | | | [place] | | | | | | + +--------+ +--------+ +---------+--------+ | [employer] | MODA | [id number] | | [phone] | | Medica | | MEDICAID HMO [...] Robby Zamora | Person | Self | [birth year] | | [address] | | | al/Fam | | 1966 | [phone] | [place] [address] | | | rosemary | | | 3 (Home) | | + +--------+ +--------+ + + | Mike Zamoraon | Person | Self | [birth year] | [address] | | | al/Fam | | 1966 | [phone] | [place] [address] | | | rosemary | | | 3 (Home) | | + +--------+ +--------+ + + Advance Directives + + + + + | Type | Date Recorded | Patient | Explanation | | | | Spanish Interpreter | | + + + + + | Power of | | | | | Corporate Operations Compliance Manager | | | | + + + + + | Advance | 02/23/2017 10:03 | | | | Directive | AM | | | + + + + +
--- OUTSIDE RECORDS SUMMARY | ~2019-08-11 | XMS | Encounter Summary ---
Demographics + + + | Address | [address] | | | [place] [address] | + + + | Home Phone [...] + + + | Author | [facility] | | | and [place] | + + + | Organization | [facility] | | | and [place] | + + + | Address | Unknown | + + + | Phone | Unavailable | + + + Support + + + + + | Name | Relationship | Address | Phone | + + + + + | Robby Zamora | ECON | [address] | | | | | [place] [address] | | + + + + + Care Team Providers + +------+ + | Care Inspector Of Weights And Measures Name | Role | Phone | + +------+ + PCP | Unavailable | + +------+ + Encounter Details +--------+ + + + + | Date | Type | Department | Care Team | Description | +--------+ + + + + | 08/28/ | Hospital | [facility] | Conversion | | | 2013 | Encounter | [facility] [address] | Transaction, | | | | | [address] | Provider Unknown | | | | | [place] | [phone] | | | | | [address] | | | | | | [phone] | | | +--------+ + + + [...]
--- OUTSIDE RECORDS SUMMARY | ~2019-08-11 | XMS | Encounter Summary ---
Demographics + + + | Address | [address] | | | [place] [address] | + + + | Home Phone | | + + + | Preferred Language | Unknown | + + + | Marital Status | Single | + + + | Voodoo Affiliation | 1073 | + + + | Race | Unknown | + + + | Ethnic Group | Unknown | + + + Author + + + | Author | [facility] | | | and [place] | + + + | Organization | [facility] | | | and [place] | + + + | Address | Unknown | + + + | Phone | Unavailable | + + + Support + + + + + | Name | Relationship | Address | Phone | + + + + + | Robby Zamora | ECON | [address] | | | | | [place] [address] | | + + + + + Care Team Providers + +------+ + | Care Slice Cutting Machine Operator Name | Role | Phone | + +------+ + | Jann Jaramillo MD | PCP | | + +------+ + Reason for Visit + +--------+ + | Reason | Onset | Comments | | | Date | | + +--------+ + | Results, Pathology | 03/04/ | denise carpenter | | | 2017 | | + +--------+ + Encounter Details +--------+ + + + + | Date | Type | Department | Care Team | Description | +--------+ + + + + | 03/04/ | Telephone | [facility] | Tan Mcrae MD | Results, Pathology | | 2018 | | GASTROENTEROLOGY | [address], [place] | (egd,colon) | | | | [address] [place] | [address] [place], [place] | | | | | [address] [place], [place] | [address] | | | | | [address] | | | | | | [phone] | | | +--------+ + + + [...] Telephone Encounter - Gely Edwards RN - 03/05/2017 10:38 AM PSTSpoke with patient' s mother and reviewed pathology results with her. H. pylori biopsy negative. Duodenal biop sies negative. Esophageal biopsies positive for reflux (foci of Cheek's negative for dysp lasia). She reports patient is taking omeprazole 40 mg every morning. Pathology on colon p olyp showed tubular adenoma. Should have follow-up colonoscopy in 5 years. Stool studies r eviewed and all negative. She reports patient's diarrhea is intermittent. Patient continue s to complain of pain in his stomach after he eats or drinks. Denies vomiting . Reviewed E GD report with her, negative for ulcers. She feels he has cut down on his alcohol consumpt ion and feels he only drinks about one day a week, drinks beer or whiskey.Electronically sig amanda by Gely Edwards RN at 03/05/2017 10:42 AM PSTTelephone Encounter - Mayra Wall - 03/04/2017 12:29 PM PSTPatients mother, Valerie Zamora, called in regards to the results of "the polyps that were removed and the cultures that were taken of her son's throat. They said it would be 4 to 7 days on those cultures and there has been no response". Please advis e and call Valerie back at [phone]. documented in this encounter Plan of Treatment Not on filedocumented as of this encounter Visit Diagnoses Not on filedocumented in this encounter
--- OUTSIDE RECORDS SUMMARY | ~2019-08-11 | XMS | Encounter Summary ---
Demographics + + + | Address | [address] | | | [place] [address] | + + + | Home Phone | | + + + | Preferred Language | Unknown | + + + | Marital Status | Single | + + + | Alevism Affiliation | 1073 | + + + | Race | Unknown | + + + | Ethnic Group | Unknown | + + + Author + + + | Author | [facility] | | | and [place] | + + + | Organization | [facility] | | | and [place] | + + + | Address | Unknown | + + + | Phone | Unavailable | + + + Support + + + + + | Name | Relationship | Address | Phone | + + + + + | Robby Zamora | ECON | [address] | | | | | [place] [address] | | + + + + + Care Team Providers + +------+ + | Care Information Coder Name | Role | Phone | + [...] Provider Unknown | | | | | [place], [place] | [phone] | | | | | [address] | | | | | | [phone] | | | +--------+ + + + [...]
--- OUTSIDE RECORDS SUMMARY | ~2019-08-11 | XMS | Encounter Summary ---
Demographics + + + | Address | [address] | | | [place] [address] | + + + | Home Phone | | + + + | Preferred Language | Unknown | + + + | Marital Status | Single | + + + | Yazidism Affiliation | 1073 | + + + | Race | Unknown | + + + | Ethnic Group | Unknown | + + + Author + + + | Author | [facility] | | | and [place] | + + + | Organization | [facility] | | | and [place] | + + + | Address | Unknown | + + + | Phone | Unavailable | + + + Support + + + + + | Name | Relationship | Address | Phone | + + + + + | Robby Zamora | ECON | [address] | | | | | [place] [address] | | + + + + + Care Team Providers + +------+ + | Care Wort Extractor Name | Role | Phone | + [...] [place] | | | | | | [address] | | | | | | [phone] | | | +--------+ + + + [...]
[~2019-08-11 09:22] MED LIST changes: +MORPHINE SULFAT15 MG PO; +NICOTINE LOZENGE4 MG BUCCAL; +OMEPRAZOLE40 MG PO
--- OUTSIDE RECORDS SUMMARY | 2019-08-11 09:24 | XMS ---
PreManage Notification: JAS RAMIREZ Security Veterinarian Epidemiologist Events No recent Security Events currently on file CRITERIA MET - 6 ED Visits in 6 Months - [facility] - Has Care Guidelines - PDMP CARE PROVIDERS LUIS MIGUEL TINOCO Internal Medicine 09/21/2018-Current PHONE: Unknown Harinder Ca Community Health Worker 06/19/2019-Current PHONE: [phone] CAESAR PEDERSEN Internal Medicine 05/22/2019-Current PHONE: [phone] Guidelines Source: [facility] Cathy [place] Guidelines Date: 06/28/2018 Care Coordination: Mental health services are being provided by [facility].\T\nbsp; Please contact [facility] with mental health concerns.\T\nbsp; Bashir/Edmundo Carlin: \T\nbsp; Sonali: [phone]. Care History Medical/Surgical 05/22/2019 [facility] - Patient is currently established with [facility]. If patient is seen in the ED during business hours. Please contact [facility] at [facility]. Care Recommendation: If this patient has had 5 or more Emergency Department visits in the last 12 months.\T\nbsp; Patient will require education on the scope and purpose of the ED as an acute care provider not a Primary Care Provider and should not be utilized for chronic conditions.\T\nbsp; These are guidelines and the provider should exercise clinical judgment when providing care. 05/22/2019 [facility] - PATIENT HAS A FOLLOW UP APT WITH DR PEDERSEN ON 05/24/19 @ 3:30PM FOR ER FOLLOW UP. E.D. VISIT COUNT (12 MO.) [facility] [address] [facility]. TOTAL 7 NOTE: Visits indicate total known visits. ED/UCC VISIT TRACKING (12 MO.) 08/11/2019 09:22 [facility] [place] TYPE: Emergency COMPLAINT: - WEAKNESS, VOMITING, ABD PAIN 06/12/2019 09:11 [facility] [place] TYPE: Emergency DIAGNOSES: - PANCREATITIS - Alcohol dependence, uncomplicated - Cyst of pancreas 06/09/2019 17:18 [facility] [place] TYPE: Emergency DIAGNOSES: - Epigastric pain - general 05/19/2019 13:48 [facility] [place] TYPE: Emergency COMPLAINT: - FLANK PAIN DIAGNOSES: - Other chronic pancreatitis - Bipolar disorder, unspecified - Essential (primary) hypertension - Other half-way (current) drug therapy - Unspecified abdominal pain 05/02/2019 12:04 [facility] [place] TYPE: Emergency DIAGNOSES: - Alcohol induced acute pancreatitis without necrosis or infect - pancreatitis problem 04/09/2019 10:36 [facility] [place] TYPE: Emergency DIAGNOSES: - Alcohol induced acute pancreatitis without necrosis or infect - PANCREATITIS NOT EATING OR DRINKING 09/20/2018 13:[address] [facility] [place] TYPE: Emergency COMPLAINT: - ABD PAIN DIAGNOSES: - Other half-way (current) drug therapy - Personal history of urinary calculi - Acute pancreatitis without necrosis or infection, unspecified - Bipolar disorder, unspecified - Alcohol abuse, uncomplicated - Epigastric pain - Major depressive disorder, single episode, unspecified - Essential (primary) hypertension - Nicotine dependence, unspecified, uncomplicated INPATIENT VISIT TRACKING (12 MO.) 06/13/2019 11:07 [facility] [place] TYPE: Medical Surgical COMPLAINT: - ACUTE/CHRONIC PANCREANTITIS DIAGNOSES: - Nicotine dependence, cigarettes, uncomplicated - Alcohol-induced chronic pancreatitis - FPC (current) use of opiate analgesic - Gastro-esophageal reflux disease without esophagitis - Epilepsy, unspecified, not intractable, without status epilep - Bipolar disorder, unspecified - Other half-way (current) drug therapy - Essential (primary) hypertension - Hypothyroidism, unspecified - Alcohol induced acute pancreatitis without necrosis or infect - Contact with and (suspected) exposure to other viral communic - Solitary pulmonary nodule - Alcohol dependence, uncomplicated 04/09/2019 10:36 [facility] [place] TYPE: Medical Surgical DIAGNOSES: - Alcohol induced acute pancreatitis without necrosis or infect [email or web address]
[2019-08-11] MEDS ORDERED: ZOFRAN4 MG PO (14:26)
[2019-08-11] MEDS ORDERED: DICYCLOMINE HCL10 MG PO (14:26)
== END 2019-08-11 14:39 | disposition home or self-care (01) ==
LOC: ED 09:22
DX: E86.0 Dehydration (principal); R19.7 Diarrhea, unspecified; R11.0 Nausea; R74.8 Abnormal levels of other serum enzymes; F31.9 Bipolar disorder, unspecified; I10 Essential (primary) hypertension; F17.200 Nicotine dependence, unspecified, uncomplicated; Z79.899 Other long term (current) drug therapy
CPT/HCPCS: 74018; 80053; 81001; 83690; 85025; 96361; 96374; 96375; 96376; 99284-25; J1885; J2405; J7030